=== PATIENT | male | born 1945 | race Caucasian/White ===

== ENCOUNTER 2017-02-21 14:02 | Emergency (ER) | payer OTHER ==
[~2017-02-21] VITALS: Ht 180.3 cm; Wt 86.6 kg
[~2017-02-21 14:02] MED LIST: ASPCH81X PO; ATOR-14 PO; LEVO125T4 PO; MULT-513 PO
[2017-02-21 14:18] VITALS: TEMP 36.6; Ht 180.3 cm; Wt 86.6 kg
[2017-02-21] MEDS ORDERED: KETOROLAC TROMETHAMINE 30 MG/ML VIAL IV STA (14:25)
[2017-02-21] MEDS ORDERED: SODIUM CHLORIDE 0.9% 1000ML 1,000 ML IV STA (14:25)
[2017-02-21] MEDS ORDERED: ONDANSETRON INJ 2 MG/ML 2 ML VIAL IV STA (14:25)
[2017-02-21] MEDS ORDERED: MoRPHine SULFATE 4 MG/ML 1 ML CARP\\VIAL IV PRN (14:30)
[2017-02-21] MEDS ORDERED: LPT10 PO (14:45)
[2017-02-21 14:56] LABS: HEMATOCRIT 45.2 % (42-52); MEAN CORPUSCULAR HEMOGLOBIN 32.3 pg (25-34); MEAN CORPUSCULAR HGB CONC 36.3 g/dl (32-36); MEAN PLATELET VOLUME 10.6 fL (7.4-10.4); PLATELET COUNT 205 K/uL (130-400); RED BLOOD COUNT 5.08 M/uL (4.7-6.1)
--- NOTE | 2017-02-21 15:08 | DIAGNOSTIC IMAGING REPORT ---
ABD/PELVIS WITHOUT FOR STONE CT DOSE: 966.87 mGycm HISTORY: Flank pain EVALUATE FLANK PAIN/HEMATURIA TECHNIQUE: Multiaxial CT images of the abdomen and pelvis were performed without the use of intravenous and oral contrast according to the standard department stone protocol. A dose lowering technique was utilized adhering to the principles of ALARA. COMPARISON STUDY: None. FINDINGS: Lung bases are clear. Liver spleen and pancreas are unremarkable in overall morphology. The adrenal glands are unremarkable. Left kidney is negative for calcification or hydronephrosis. There are findings of mild right renal hydronephrosis. There is a 6 x 4 mm obstructing calculus at the right ureteropelvic junction. Distal aspects of the ureters show no evidence for distention. Exophytic nodule from the mid right kidney measuring 2.6 x 2.0 cm. Hounsfield units are indeterminate with this potentially representing renal lesion versus hyperdense cyst. The bowel pattern is nonobstructive. The appendix is normal. There are several scattered colonic diverticuli with no evidence of diverticulitis. Prostate is enlarged. IMPRESSION: 1. 6 x 4 mm obstructing calculus right ureteropelvic junction. 2. Mild/moderate right renal hydronephrosis. 3. Exophytic nodule mid right kidney measuring 2.6 x 2.0 cm. Renal ultrasound on a routine basis is recommended to exclude the possibility of a renal mass versus hyperdense cyst. 4. Scattered colonic diverticulosis The above report was generated using voice recognition software. It may contain grammatical, syntax or spelling errors. Electronically signed by: Jerome Santana M.D. 02/21/2017 3:07 PM Dictated Date/Time: 02/21/2017 3:02 PM
--- NOTE | 2017-02-21 15:17 | EMERGENCY ROOM VISIT NOTE ---
History Report prepared by Francis: Zeynep Ellison Under the Supervision of: Dr. Jeison Rivera M.D. First contact with patient: 14:21 Chief Complaint: FLANK PAIN Stated Complaint: EXTREME PAIN IN RIGHT SIDE, KIDNEY AREA, NAUSEA History of Present Illness The patient is a 71 year old male who presents to the Emergency Room with complaints of worsening right flank pain starting four hours ago. The patient states that the pain came on gradually. He states he noticed it when he went to [employer]. He reports that it worsened when at home watching the football game. He states that he couldn't stand the pain anymore so he decided to come into the hospital. The patient currently rates his pain as a 9/10 in severity. He notes that the pain stays in his back and does not radiate anywhere. He notes that he felt fine yesterday. The patient complains of nausea and feeling tingly. The patient denies pain in his testicles, burning with urination, frequent urination , fever, and trauma. His notes that he is scheduled for a prostate MRI due to an increased PSA. Patient arrived with previous records. They show a previous finding of a 6 mm stone within the right kidney. Source of History: patient, spouse/significant other Onset: four hours ago Position: other (right flank) Symptom Intensity: 9/10 Quality: tingling Timing: worsening Associated Symptoms: + nausea, No fevers, No urinary symptoms Note: The patient denies pain in his testicles and trauma. Review of Systems See HPI for pertinent positives & negatives. A total of 10 systems reviewed and were otherwise negative. Family History FH: CHF (congestive heart failure) SISTER FH: HTN (hypertension) BROTHER SISTER No significant history FATHER MOTHER Social History Smoking Status: Never Smoker Marital Status: Housing Status: lives with family Occupation Status: retired Current/Historical Medications Scheduled Alfuzosin Hcl (Uroxatral), 10 MG PO DAILY Aspirin (Aspirin Chewable), 81 MG PO DAILY Atorvastatin (Atorvastatin Calcium), 10 MG PO DAILY Levothyroxine Sodium (Levothyroxine Sodium), 125 MCG PO QAM Multivitamins/Minerals (Mvi With Minerals), 1 TAB PO DAILY Ondasetron Odt (Zofran Odt), 4 MG SL Q6H Scheduled PRN Oxycodone Ir (Roxicodone Ir), 1-2 TAB PO Q4H PRN for Pain Allergies Coded Allergies: Tamsulosin (Unverified Allergy, Unknown, ., 02/21/17) Physical Exam Vital Signs Date Time Temp Pulse Resp B/P (MAP) Pulse Ox O2 Delivery O2 Flow Rate FiO2 02/21/17 16:14 65 18 134/87 97 Room Air 02/21/17 14:38 51 02/21/17 14:18 36.6 60 18 179/105 99 Room Air Physical Exam GENERAL: Patient is in moderate distress secondary to pain. HEENT: No acute trauma, normocephalic atraumatic, mucous membranes moist, no nasal congestion, no scleral icterus. NECK: No stridor, no adenopathy, no meningismus, trachea is midline. LUNGS: Clear to auscultation bilaterally, no wheeze, no rhonchi, breath sounds equal. HEART: Without murmurs gallops or rubs, regular rate and rhythm. ABDOMEN: Soft, nontender, bowel sounds positive, no hernias, no peritonitis. BACK: Right flank discomfort with percussion. EXTREMITIES: No cyanosis or edema, full range of motion of all the joints without pain or difficulty, no signs for acute trauma. NEUROLOGIC: Oriented x 3, no acute motor or sensory deficits, no focal weakness. SKIN: No rash, no jaundice, no diaphoresis. Medical Decision & Procedures ER Provider Diagnostic Interpretation: Radiology results as stated below per my review and radiologist interpretation: ABD/PELVIS WITHOUT FOR STONE CT DOSE: 966.87 mGycm HISTORY: Flank pain EVALUATE FLANK PAIN/HEMATURIA TECHNIQUE: Multiaxial CT images of the abdomen and pelvis were performed without the use of intravenous and oral contrast according to the standard department stone protocol. A dose lowering technique was utilized adhering to the principles of ALARA. COMPARISON STUDY: None. FINDINGS: Lung bases are clear. Liver spleen and pancreas are unremarkable in overall morphology. The adrenal glands are unremarkable. Left kidney is negative for calcification or hydronephrosis. There are findings of mild right renal hydronephrosis. There is a 6 x 4 mm obstructing calculus at the right ureteropelvic junction. Distal aspects of the ureters show no evidence for distention. Exophytic nodule from the mid right kidney measuring 2.6 x 2.0 cm. Hounsfield units are indeterminate with this potentially representing renal lesion versus hyperdense cyst. The bowel pattern is nonobstructive. The appendix is normal. There are several scattered colonic diverticuli with no evidence of diverticulitis. Prostate is enlarged. IMPRESSION: 1. 6 x 4 mm obstructing calculus right ureteropelvic junction. 2. Mild/moderate right renal hydronephrosis. 3. Exophytic nodule mid right kidney measuring 2.6 x 2.0 cm. Renal ultrasound on a routine basis is recommended to exclude the possibility of a renal mass versus hyperdense cyst. 4. Scattered colonic diverticulosis The above report was generated using voice recognition software. It may contain grammatical, syntax or spelling errors. Electronically signed by: Jerome Santana M.D. 02/21/2017 3:07 PM Dictated Date/Time: 02/21/2017 3:02 PM Laboratory Results 02/21/17 14:40 02/21/17 14:40 Test 02/21/17 14:40 02/21/17 15:34 Red Blood Count 5.08 M/uL (4.7-6.1) Mean Corpuscular Volume 89.0 fL (80-100) Mean Corpuscular Hemoglobin 32.3 pg (25-34) Mean Corpuscular Hemoglobin Concent 36.3 g/dl (32-36) RDW Standard Deviation 40.8 fL (36.4-46.3) RDW Coefficient of Variation 12.7 % (11.5-14.5) Mean Platelet Volume 10.6 fL (7.4-10.4) Anion Gap 11.0 mmol/L (3-11) Est Creatinine Clear Calc Drug Dose 67.5 ml/min Estimated GFR () 79.0 Estimated GFR (Non- 68.1 BUN/Creatinine Ratio 13.3 (10-20) Calcium Level 9.8 mg/dl (8.5-10.1) Total Bilirubin 0.8 mg/dl (0.2-1) Aspartate Amino Transf (AST/SGOT) 20 U/L (15-37) Alanine Aminotransferase (ALT/SGPT) 28 U/L (12-78) Alkaline Phosphatase 75 U/L (45-117) Total Protein 7.3 gm/dl (6.4-8.2) Albumin 4.2 gm/dl (3.4-5.0) Globulin 3.1 gm/dl (2.5-4.0) Albumin/Globulin Ratio 1.4 (0.9-2) Lipase 218 U/L (73-393) Urine Color YELLOW Urine Appearance CLEAR (CLEAR) Urine pH 7.5 (4.5-7.5) Urine Specific [place] 1.018 (1.000-1.030) Urine Protein NEG (NEG) Urine Glucose (UA) NEG (NEG) Urine Ketones 1+ (NEG) Urine Occult Blood 2+ (NEG) Urine Nitrite NEG (NEG) Urine Bilirubin NEG (NEG) Urine Urobilinogen NEG (NEG) Urine Leukocyte Esterase NEG (NEG) Urine WBC (Auto) 1-5 /hpf (0-5) Urine RBC (Auto) >30 /hpf (0-4) Urine Hyaline Casts (Auto) 0 /lpf (0-5) Urine Epithelial Cells (Auto) 20-30 /lpf (0-5) Urine Bacteria (Auto) NEG (NEG) Laboratory results reviewed by me. Medications Administered Medications (Trade) Dose Ordered Sig/Yasmine Route Start Time Stop Time Status Last Admin Dose Admin Ondansetron HCl (Zofran Inj) 4 mg NOW STAT IV 02/21/17 14:25 02/21/17 14:27 DC 02/21/17 14:41 4 MG Sodium Chloride 1,000 ml @ 999 mls/hr Q1H1M STAT IV 02/21/17 14:25 02/21/17 15:25 DC 02/21/17 14:41 999 MLS/HR Morphine Sulfate (MoRPHine SULFATE INJ) 4 mg Q15M PRN IV 02/21/17 14:30 03/07/17 14:29 02/21/17 14:42 4 MG Ketorolac Tromethamine (Toradol Inj) 30 mg NOW STAT IV 02/21/17 14:25 02/21/17 14:27 DC 02/21/17 14:41 30 MG Alfuzosin HCl (Uroxatral Tab) 10 mg NOW STAT PO 02/21/17 15:53 02/21/17 15:54 DC 02/21/17 16:12 10 MG Oxycodone HCl (Roxicodone Immediate Rel 5MG Home Pack) 1 homepack UD ONCE PO 02/21/17 16:45 02/21/17 16:46 DC 02/21/17 16:49 1 HOMEPACK Ondansetron HCl (ZOFRAN ODT 4MG Home Pack) 1 homepack UD ONCE PO 02/21/17 16:45 02/21/17 16:46 DC 02/21/17 16:49 1 HOMEPACK ED Course 1422: The patient was evaluated in room B11A. A complete history and physical exam was performed. 1425: Ordered Toradol Inj 30 mg IV, NSS 1000 ml @ 999 mls/hr IV, Zofran Inj 4 mg IV. 1430: Ordered Morphine Sulfate 4 mg PRN IV pain. 1553: Ordered Alfuzosin HCl 10 mg PO. 1554: I reevaluated the patient and he is doing okay. 1618: Reevaluated the patient. Discussed results and discharge instructions: he verbalized understanding and agreement. The patient is ready for discharge. 1645: Ordered Ondansetron HCl 1 homepack PO, Oxycodone HCl 1 homepack PO. Medical Decision Differential diagnoses include renal colic, UTI, renal hematoma, dehydration, electrolyte imbalance, renal failure. There is a mild leukocytosis, likely consistent with his pain. No anemia. No significant electrolyte abnormality, kidney failure or hepatitis. Abdominal and pelvis CT shows a 6 mm right ureteral stone with hydronephrosis. A nodule was seen on the right kidney for which follow-up was suggested. Urinalysis shows hematuria, no infection. The patient received IV saline, IV Toradol, IV morphine and IV Zofran, he is more comfortable. He received oral Uroxatral. The patient is stable, he is being discharged on Motrin, oxycodone, Uroxatral, Zofran. He will strain all his urine for the stone. He will return here for fever, vomiting or uncontrolled pain. He will talk with his urologist tomorrow about follow-up. [place] Drug Monitoring Program Search Results: no issues identified Medication Reconcilliation Current Medication List: was personally reviewed by me Blood Pressure Screening Patient's blood pressure: Elevated blood pressure Blood pressure disposition: Elevated BP felt to be situational Impression Primary Impression: Renal colic Additional Impression: Right flank pain Scribe Attestation The scribe's documentation has been prepared under my direction and personally reviewed by me in its entirety. I confirm that the note above accurately reflects all work, treatment, procedures, and medical decision making performed by me. Departure Information Dispostion Home / Self-Care Prescriptions Alfuzosin Hcl (Uroxatral) 10 Mg Tab 10 MG PO DAILY, #10 TAB Prov: Jeison Rivera M.D. 02/21/17 Ondasetron Odt (ZOFRAN ODT) 4 Mg Tab 4 MG SL Q6H for Nausea, #10 TAB Prov: Jeison Rivera M.D. 02/21/17 Oxycodone Ir (Roxicodone Ir) 5 Mg Tab 1-2 TAB PO Q4H Y for Pain, #10 TAB Prov: Jeison Rivera M.D. 02/21/17 Referrals No Doctor, Assigned (PCP) Forms HOME CARE DOCUMENTATION FORM, IMPORTANT VISIT INFORMATION Patient Instructions My [facility] Additional Instructions strain all the urine for the stone stay hydrated motrin for pain oxy ir for severe pain, 1-2 tab as needed every 4 hours stool softners to prevent constipation Uroxatral to try and help pass the stone zofran 1 tab every 6 hours for nausea call and set up appt with your urologist tomorrow return for worsening symptoms, fever, vomiting or uncontrolled pain Problem Qualifiers
[2017-02-21 15:23] LABS: BUN/CREATININE RATIO 13.3 (10-20); CALCIUM 9.8 mg/dl (8.5-10.1); CREATININE 1.1 mg/dl (0.60-1.40); POTASSIUM 3.9 mmol/L (3.5-5.1)
[2017-02-21 15:24] LABS: ALB/GLOB RATIO 1.4 (0.9-2)
[2017-02-21 15:48] LABS: URINE APPEARANCE CLEAR (CLEAR); URINE BILIRUBIN NEG (NEG); URINE COLOR YELLOW; URINE EPITHELIAL CELL AUTO 20-30 /lpf (0-5); URINE NITRITE NEG (NEG); URINE PH 7.5 (4.5-7.5); URINE SPECIFIC GRAVITY 1.018 (1.000-1.030); UROBILINOGEN NEG (NEG); ZZUR CULT IF INDIC CLEAN CATCH NO
[2017-02-21] MEDS ORDERED: ALFUZosin TAB 10 MG TAB PO STA (15:53)
[2017-02-21 15:58] LABS: MANUAL MICROSCOPIC REQUIRED? NO; REVIEW REQ? NO
[2017-02-21 16:14] VITALS: BP 134/87; PULSE 65; O2SAT 97
[2017-02-21] MEDS ORDERED: ALFU10TA30 PO (16:33)
[2017-02-21] MEDS ORDERED: OXYC1TAB3 PO (16:33)
[2017-02-21] MEDS ORDERED: ONDA4TAB10 SL (16:33)
[2017-02-21] MEDS ORDERED: ONDANSETRON HOME PACK 4MG OD TAB PO ONE (16:45)
[2017-02-21] MEDS ORDERED: OXYCODONE IR HOME PACK PO ONE (16:45)
[2017-02-24] MEDS ORDERED: TAMS0.4C38 PO (19:27)
[2017-02-24] MEDS ORDERED: PHEN-1043 PO (19:27)
[2017-03-01] MEDS ORDERED: FLM4 PO (14:07)
== END 2017-02-21 16:53 | disposition home or self-care (01) ==
LOC: C.EDB 14:04
DX: N23 Unspecified renal colic (principal); R10.9 Unspecified abdominal pain; Z82.49 Family history of ischemic heart disease and other diseases of the circulatory system; Z79.82 Long term (current) use of aspirin

== ENCOUNTER 2017-02-23 18:36 | Inpatient (IN) | payer OTHER ==
[~2017-02-23] VITALS: Ht 177.8 cm; Wt 87.7 kg
[~2017-02-23 18:36] MED LIST changes: +ALFU10TA30 PO; -ATOR-14 PO; +LPT10 PO; +ONDA4TAB10 SL; +OXYC1TAB3 PO
[2017-02-23] MEDS ORDERED: DOCU100C PO (19:38)
[2017-02-23] MEDS ORDERED: METOCLOPRAMIDE HCL INJ 5 MG/ML 2 ML VIAL IV STA (19:43)
[2017-02-23] MEDS ORDERED: HYDROmorphone INJ 1 MG/ML SYR IV STA (19:43)
[2017-02-23] MEDS ORDERED: KETOROLAC TROMETHAMINE 30 MG/ML VIAL IV STA (19:43)
[2017-02-23] MEDS ORDERED: SODIUM CHLORIDE 0.9% 1000ML 1,000 ML IV STA (19:43)
[2017-02-23 20:20] LABS: BASO % 0.1 %; BASO ABS # 0.01 K/uL (0-0.2); COMPLETE YES; EOS % 0.1 %; HEMATOCRIT 43.2 % (42-52); IG% 0.6 %; LYMPH % 8.2 %; LYMPH ABS # 1.01 K/uL (1.2-3.4); MEAN CELL VOLUME 91.9 fL (80-100); MEAN CORPUSCULAR HEMOGLOBIN 31.3 pg (25-34); MEAN PLATELET VOLUME 10.6 fL (7.4-10.4); MONO % 8.9 %; NEUT % 82.1 %; PLATELET COUNT 176 K/uL (130-400); WHITE BLOOD COUNT 12.31 K/uL (4.8-10.8)
[2017-02-23 20:24] LABS: URINE APPEARANCE CLOUDY (CLEAR); URINE BILIRUBIN NEG (NEG); URINE COLOR YELLOW; URINE EPITHELIAL CELL AUTO 0-5 /lpf (0-5); URINE NITRITE NEG (NEG); URINE SPECIFIC GRAVITY 1.019 (1.000-1.030); UROBILINOGEN NEG (NEG)
[2017-02-23 20:26] LABS: MANUAL MICROSCOPIC REQUIRED? NO; REVIEW REQ? NO
--- NOTE | 2017-02-23 20:26 | DIAGNOSTIC IMAGING REPORT ---
KUB CLINICAL HISTORY: Right flank pain. History of kidney stones. COMPARISON STUDY: CT of the abdomen and pelvis February 21, 2017. FINDINGS: Pelvic calcifications represent phleboliths, as shown on prior abdominal CT. A 6 mm right ureteropelvic junction calculus is unchanged in position since CT of February 21, 2017. No additional urinary calculi are identified. There is no evidence for a bowel obstruction. IMPRESSION: No change in position of the 6 mm right ureteropelvic junction calculus. Electronically signed by: Jeyson Goldstein M.D. 02/23/2017 8:25 PM Dictated Date/Time: 02/23/2017 8:22 PM
[2017-02-23 20:28] LABS: BUN/CREATININE RATIO 13.3 (10-20); CALCIUM 8.6 mg/dl (8.5-10.1); CREATININE 1.3 mg/dl (0.60-1.40); POTASSIUM 4.1 mmol/L (3.5-5.1)
[2017-02-23] MEDS ORDERED: CEFTRIAXONE SOD INJ 1 GM ADDVIAL IV STA (20:33)
[2017-02-23] MEDS ORDERED: VANCOMYCIN 1GM/270ML NSS IV STA (20:33)
--- NOTE | 2017-02-23 20:40 | EMERGENCY ROOM VISIT NOTE ---
History Report prepared by Francis: Zeynep Ellison Under the Supervision of: Dr. Osmany Deleon M.D. First contact with patient: 19:27 Chief Complaint: KIDNEY STONE Stated Complaint: PAIN FROM KIDNEY STONE History of Present Illness The patient is a 71 year old male who presents to the Emergency Room with complaints of a worsening right kidney stone starting a few days ago. The patient states that he was here two days ago and they found a 6 mm kidney stone. He states he has an appointment tomorrow with urology, but reports that he is struggling with pain control. The patient states that he cannot get comfortable and the Oxycodone hasn't been helping. He complains of being constipated from the Oxycodone. The patient currently rates his pain as a 7/10 in severity. The patient denies taking Ibuprofen. Source of History: patient Onset: a few days ago Position: other (right flank) Symptom Intensity: 7/10 Timing: worsening Note: The patient complains of constipation. The patient denies taking Ibuprofen. Review of Systems See HPI for pertinent positives & negatives. A total of 10 systems reviewed and were otherwise negative. Past Medical & Surgical Medical Problems: (1) HTN (hypertension) (2) Renal colic Surgical Problems: (1) History of total bilateral knee replacement Family History FH: CHF (congestive heart failure) SISTER FH: HTN (hypertension) BROTHER SISTER No significant history FATHER MOTHER Social History Smoking Status: Never Smoker Marital Status: Housing Status: lives with family Occupation Status: retired Current/Historical Medications Scheduled Alfuzosin Hcl (Uroxatral), 10 MG PO DAILY Aspirin (Aspirin Chewable), 81 MG PO DAILY Atorvastatin (Atorvastatin Calcium), 10 MG PO DAILY Docusate Sodium (Stool Softener), 100 MG PO DIRECTED Levothyroxine Sodium (Levothyroxine Sodium), 125 MCG PO QAM Multivitamins/Minerals (Mvi With Minerals), 1 TAB PO DAILY Ondasetron Odt (Zofran Odt), 4 MG SL Q6H Scheduled PRN Oxycodone Ir (Roxicodone Ir), 1-2 TAB PO Q4H PRN for Pain Allergies Coded Allergies: Tamsulosin (Unverified Allergy, Unknown, ., 02/23/17) Physical Exam Vital Signs Date Time Temp Pulse Resp B/P (MAP) Pulse Ox O2 Delivery O2 Flow Rate FiO2 02/23/17 21:21 89 02/23/17 20:17 92 16 151/94 96 Room Air 02/23/17 18:51 37.5 92 20 159/91 96 Room Air Physical Exam GENERAL: Patient is a healthy-appearing well-nourished HEAD: Normocephalic atraumatic EYES: Ocular movements intact pupils equal and react to light OROPHARYNX mucous membranes are moist no exudates present no erythema or edema present NECK: Supple no nuchal rigidity CHEST: Good equal expansion LUNGS: Clear and equal to auscultation CARDIAC: Normal S1 and S2 ABDOMEN: Soft nontender no guarding BACK: No CVA tenderness EXTREMITIES: No pain upon palpation normal muscle strength in all groups no clubbing cyanosis or edema NEURO: Patient is following commands and answering questions appropriately. Alert and oriented x3 Cranial Nerves 2-12 grossly intact Medical Decision & Procedures ER Provider Diagnostic Interpretation: Radiology results as stated below per my review and radiologist interpretation: KUB CLINICAL HISTORY: Right flank pain. History of kidney stones. COMPARISON STUDY: CT of the abdomen and pelvis February 21, 2017. FINDINGS: Pelvic calcifications represent phleboliths, as shown on prior abdominal CT. A 6 mm right ureteropelvic junction calculus is unchanged in position since CT of February 21, 2017. No additional urinary calculi are identified. There is no evidence for a bowel obstruction. IMPRESSION: No change in position of the 6 mm right ureteropelvic junction calculus. Electronically signed by: Jeyson Goldstein M.D. 02/23/2017 8:25 PM Dictated Date/Time: 02/23/2017 8:22 PM RENAL ULTRASOUND CLINICAL HISTORY: Right flank pain. COMPARISON STUDY: CT of the abdomen and pelvis February 21, 2017 and KUB performed earlier today. TECHNIQUE: Sonography of the kidneys and the urinary bladder was performed. FINDINGS: The right kidney measures 12.9 x 5.9 x 6.3 cm and the left measures 10.7 x 6.2 x 4.7 cm. There is a 2.8 cm right renal cyst. Mild right hydronephrosis is similar to CT of February 21, 2017. The right ureteropelvic junction calculus shown on CT and KUB is not visualized on this exam but may be occult by sonography. There is no left hydronephrosis. The right ureteral jet was not identified. The prostate is moderately enlarged. IMPRESSION: 1. Mild right hydronephrosis which is similar to CT of February 21, 2017. Right ureteropelvic junction calculus shown on CT and KUB is not visualized on this exam but is likely occult by sonography. 2. No left hydronephrosis. 3. Nonvisualization of the right ureteral jet. Electronically signed by: Jeyson Goldstein M.D. 02/23/2017 9:19 PM Dictated Date/Time: 02/23/2017 9:15 PM Laboratory Results 02/23/17 19:45 Red Blood Count 4.70, Mean Corpuscular Volume 91.9, Mean Corpuscular Hemoglobin 31.3, Mean Corpuscular Hemoglobin Concent 34.0, Mean Platelet Volume 10.6, Neutrophils (%) (Auto) 82.1, Lymphocytes (%) (Auto) 8.2, Monocytes (%) (Auto) 8.9, Eosinophils (%) (Auto) 0.1, Basophils (%) (Auto) 0.1, Neutrophils # (Auto) 10.10, Lymphocytes # (Auto) 1.01, Monocytes # (Auto) 1.10, Eosinophils # (Auto) 0.01, Basophils # (Auto) 0.01 02/23/17 19:45 Test 02/23/17 19:45 White Blood Count 12.31 K/uL (4.8-10.8) Red Blood Count 4.70 M/uL (4.7-6.1) Hemoglobin 14.7 g/dL (14.0-18.0) Hematocrit 43.2 % (42-52) Mean Corpuscular Volume 91.9 fL (80-100) Mean Corpuscular Hemoglobin 31.3 pg (25-34) Mean Corpuscular Hemoglobin Concent 34.0 g/dl (32-36) Platelet Count 176 K/uL (130-400) Mean Platelet Volume 10.6 fL (7.4-10.4) Neutrophils (%) (Auto) 82.1 % Lymphocytes (%) (Auto) 8.2 % Monocytes (%) (Auto) 8.9 % Eosinophils (%) (Auto) 0.1 % Basophils (%) (Auto) 0.1 % Neutrophils # (Auto) 10.10 K/uL (1.4-6.5) Lymphocytes # (Auto) 1.01 K/uL (1.2-3.4) Monocytes # (Auto) 1.10 K/uL (0.11-0.59) Eosinophils # (Auto) 0.01 K/uL (0-0.5) Basophils # (Auto) 0.01 K/uL (0-0.2) RDW Standard Deviation 43.1 fL (36.4-46.3) RDW Coefficient of Variation 12.8 % (11.5-14.5) Immature Granulocyte % (Auto) 0.6 % Immature Granulocyte # (Auto) 0.08 K/uL (0.00-0.02) Urine Color YELLOW Urine Appearance CLOUDY (CLEAR) Urine pH 5.0 (4.5-7.5) Urine Specific [place] 1.019 (1.000-1.030) Urine Protein 1+ (NEG) Urine Glucose (UA) NEG (NEG) Urine Ketones TRACE (NEG) Urine Occult Blood 3+ (NEG) Urine Nitrite NEG (NEG) Urine Bilirubin NEG (NEG) Urine Urobilinogen NEG (NEG) Urine Leukocyte Esterase NEG (NEG) Urine WBC (Auto) 1-5 /hpf (0-5) Urine RBC (Auto) 10-30 /hpf (0-4) Urine Hyaline Casts (Auto) 1-5 /lpf (0-5) Urine Epithelial Cells (Auto) 0-5 /lpf (0-5) Urine Bacteria (Auto) NEG (NEG) Anion Gap 7.0 mmol/L (3-11) Est Creatinine Clear Calc Drug Dose 59.8 ml/min Estimated GFR () 64.5 Estimated GFR (Non- 55.7 BUN/Creatinine Ratio 13.3 (10-20) Calcium Level 8.6 mg/dl (8.5-10.1) Total Bilirubin 1.1 mg/dl (0.2-1) Direct Bilirubin 0.2 mg/dl (0-0.2) Aspartate Amino Transf (AST/SGOT) 15 U/L (15-37) Alanine Aminotransferase (ALT/SGPT) 20 U/L (12-78) Alkaline Phosphatase 67 U/L (45-117) Total Protein 6.9 gm/dl (6.4-8.2) Albumin 3.6 gm/dl (3.4-5.0) Lipase 151 U/L (73-393) Labs reviewed by ED physician. Medications Administered Medications (Trade) Dose Ordered Sig/Yasmine Route Start Time Stop Time Status Last Admin Dose Admin Ketorolac Tromethamine (Toradol Inj) 30 mg NOW STAT IV 02/23/17 19:43 02/23/17 19:47 DC 02/23/17 20:24 30 MG Hydromorphone HCl (Dilaudid Inj) 1 mg NOW STAT IV 02/23/17 19:43 02/23/17 19:47 DC 02/23/17 20:24 1 MG Metoclopramide HCl (Reglan Inj) 10 mg NOW STAT IV 02/23/17 19:43 02/23/17 19:47 DC 02/23/17 20:24 10 MG Sodium Chloride 1,000 ml @ 999 mls/hr Q1H1M STAT IV 02/23/17 19:43 02/23/17 20:43 DC 02/23/17 20:18 999 MLS/HR Ceftriaxone Sodium (Rocephin Inj) 1 gm NOW STAT IV 02/23/17 20:33 02/23/17 20:34 DC 02/23/17 21:09 1 GM Sodium Chloride 1,000 ml @ 80 mls/hr [id number] IV 02/23/17 21:30 03/25/17 21:29 02/24/17 00:18 80 MLS/HR ECG Indication: abdominal pain Rate (beats per minute): 90 Rhythm: normal sinus Findings: no acute ischemic change, no ectopy ED Course 1937: Past medical records reviewed. The patient was evaluated in room B4B. A complete history and physical examination was performed. 1942: Ordered NSS 1000 ml @ 999 mls/hr IV, Reglan Inj 10 mg IV, Dilaudid Inj 1 mg IV, Toradol Inj 30 mg IV. 2032: Ordered Vancomycin HCl 1 gm IV, Rocephin Inj 1 gm IV. 2102: I discussed the patient's case with Dr. Cueto, he has agreed to evaluate the patient for further management and care. Medical Decision Etiologies such as appendicitis, diverticulitis, PUD, biliary pathology, UTI, pancreatitis, obstruction, mesenteric ischemia, aortic pathology, infections, inflammatory bowel disease, renal colic, as well as others were entertained. This is a 71-year-old male who presents emergency department complaining of flank pain. The patient was just diagnosed with a CAT scan as a kidney stone. It is an exceptionally large kidney stone at 6 mm x 4 mm. Based on this finding I sent the patient for KUB as well as an ultrasound. The kidney stone does not appear to have moved and that time. The patient cannot get his pain under control at home therefore an IV was established here, the patient is given Toradol as well as Compazine. He is running a slight fever and has an elevation in his white blood count cell count. For this reason the patient was started on Rocephin as well as vancomycin. I did discuss the case with the hospitalist service who agreed to admit the patient. Patient was in agreement with treatment plan. Medication Reconcilliation Current Medication List: was personally reviewed by me Blood Pressure Screening Patient's blood pressure: Elevated blood pressure Will be further monitored by hospitalist. Consults Time Called: 2100 Consulting Physician: Dr. Vipin Weiss Returned Call: 2102 I discussed the patient's case with Dr. Cueto, he has agreed to evaluate the patient for further management and care. Impression Primary Impression: Kidney stone Scribe Attestation The scribe's documentation has been prepared under my direction and personally reviewed by me in its entirety. I confirm that the note above accurately reflects all work, treatment, procedures, and medical decision making performed by me. Departure Information Dispostion Being Evaluated By Hospitalist Referrals Arnulfo Valdez M.D. (PCP) Patient Instructions My [facility]
--- NOTE | 2017-02-23 21:20 | DIAGNOSTIC IMAGING REPORT ---
RENAL ULTRASOUND CLINICAL HISTORY: Right flank pain. COMPARISON STUDY: CT of the abdomen and pelvis February 21, 2017 and KUB performed earlier today. TECHNIQUE: Sonography of the kidneys and the urinary bladder was performed. FINDINGS: The right kidney measures 12.9 x 5.9 x 6.3 cm and the left measures 10.7 x 6.2 x 4.7 cm. There is a 2.8 cm right renal cyst. Mild right hydronephrosis is similar to CT of February 21, 2017. The right ureteropelvic junction calculus shown on CT and KUB is not visualized on this exam but may be occult by sonography. There is no left hydronephrosis. The right ureteral jet was not identified. The prostate is moderately enlarged. IMPRESSION: 1. Mild right hydronephrosis which is similar to CT of February 21, 2017. Right ureteropelvic junction calculus shown on CT and KUB is not visualized on this exam but is likely occult by sonography. 2. No left hydronephrosis. 3. Nonvisualization of the right ureteral jet. Electronically signed by: Jeyson Goldstein M.D. 02/23/2017 9:19 PM Dictated Date/Time: 02/23/2017 9:15 PM
[2017-02-23] MEDS ORDERED: LORAZEPAM 2 MG/ML 1 ML VIAL IV PRN (21:30)
[2017-02-23] MEDS ORDERED: ACETAMINOPHEN 325 MG TAB PO PRN (21:30)
[2017-02-23] MEDS ORDERED: ONDANSETRON INJ 2 MG/ML 2 ML VIAL IV PRN (21:30)
[2017-02-23] MEDS ORDERED: KETOROLAC TROMETHAMINE 15 MG/ML VIAL IV. PRN (21:30)
[2017-02-23] MEDS ORDERED: POLYETHYLENE (MIRALAX) 17 GM PACK PO PRN (21:30)
[2017-02-23] MEDS ORDERED: OXYCODONE/ACETAMINOPHEN 5-325 TAB PO PRN (21:30)
[2017-02-23] MEDS ORDERED: HYDROmorphone INJ 0.5 MG/0.5 ML SYR IV PRN (21:30)
[2017-02-23] MEDS ORDERED: IV FLUIDS COMPLETED PRN ×2 (21:30→23:15)
[2017-02-23] MEDS ORDERED: DOCUSATE SODIUM/SENNA 50/8.6MG TAB PO STA (21:56)
[2017-02-23] MEDS ORDERED: LACTULOSE SYRUP 20 GM/30 ML UDC PO STA (21:56)
[2017-02-23] MEDS ORDERED: POLYETHYLENE (MIRALAX) 17 GM PACK PO STA (22:03)
--- NOTE | 2017-02-23 23:02 | HISTORY & PHYSICAL EXAMINATION ---
DATE OF ADMISSION: 02/23/2017 PRIMARY CARE DOCTOR: Dr. Valdez. CHIEF COMPLAINT: Right flank/kidney stone pain. HISTORY OF PRESENT ILLNESS: History obtained from patient and records. Medical history significant for BPH, urolithiasis, hypertension, PVD, arthritis, hypothyroidism. Recent confinement under orthopedic service 2012 for right knee surgery. As per the patient, in 10/2016, the patient was found to have a nonobstructing right kidney stone on CT scan done at [facility] in preparation for kidney donor candidacy, no symptoms. 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 Last few days, the patient noted right flank pain, achy, some nausea, no vomiting. Seen at the Emergency Room a few days ago. CAT scan of the abdomen and pelvis showed 6 x 4 mm obstructing calculus right UPJ with mild to moderate right hydronephrosis, exophytic nodule mid right kidney. Patient discharged on pain medication. Told to follow up w/ outpatient urology. No improvement of symptoms. Patient constipated last few days, some chills, no hematuria. Patient returned to the Emergency Room with intractable pain. MEDICAL HISTORY: As above. SURGERIES: He has had orthopedic procedures, prostate procedures. HOME MEDICATIONS: Include aspirin, atorvastatin, stool softener, levothyroxine, multivitamins, Uroxatral. ALLERGIES: TAMSULOSIN. FAMILY HISTORY: Kidney disease, heart disease. PERSONAL AND SOCIAL HISTORY: Nonsmoker, no chronic intake of alcoholic beverages. 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 REVIEW OF SYSTEMS: As per HPI, all other ROS negative. PHYSICAL EXAMINATION: VITAL SIGNS: Blood pressure was noted to be 150/93, pulse 72, RR 16, temperature 36.5, sats 96 on room air. GENERAL: Noted to be slightly uncomfortable. No respiratory distress. Looks younger for stated age. SKIN: Normal color. HEENT: [place] palpebral conjunctivae. Dry mucosa. NECK: No JVD. Supple. CHEST: Clear to auscultation. HEART: Regular rate and rhythm. ABDOMEN: Soft. BACK: No flank tenderness. EXTREMITIES: No edema, no tenderness. NEUROLOGIC: No gross focality. LABORATORY DATA: Hemoglobin 14.7, hematocrit 42.2, white cells 12.31, platelets 176. Sodium 137, potassium 4.1, chloride 103, CO2 of 27, BUN 17, creatinine 0.3, glucose 106. KUB x-ray showed no change in position of 6 mm right UPJ calculus. Renal ultrasound, mild right hydronephrosis, 2.8 mm right renal cyst. ASSESSMENT: 1. Right renal colic. No sepsis. Failed outpatient treatment. Intractable symptoms. 2. Narcotic-induced constipation. 3. Hypertension, slightly elevated. 4. History of BPH as per records PLAN: GMF Analgesia. IV fluids. Hold off on antibiotics for now as patient not septic. Urology consult. RE renal colic (Patient known to Dr. Mitchell.) Bowel regimen. DVT prophylaxis, SCDs. Full code. MTDD
[2017-02-24] VITALS (9 sets, daily range): BP systolic 115–160; BP diastolic 70–101; PULSE 66–73; TEMP 36.8–37.4; O2SAT 93–98; Ht 177.8 cm; Wt 87.7 kg
[2017-02-24] MEDS: SODIUM CHLORIDE 0.9% 1000ML 1,000 ML IV SCH ×2 (00:18→13:07)
[2017-02-24] MEDS ORDERED: LEVOTHYROXINE 125 MCG TAB PO SCH (06:30)
[2017-02-24] MEDS ORDERED: ALFUZosin TAB 10 MG TAB PO SCH (09:00)
[2017-02-24] MEDS ORDERED: CEROVITE ADV FORMULA TAB PO SCH (09:00)
[2017-02-24] MEDS ORDERED: ATORVASTATIN 10 MG TAB PO SCH (09:00)
[2017-02-24] MEDS ORDERED: DOCUSATE SODIUM/SENNA 50/8.6MG TAB PO SCH (09:00)
[2017-02-24] MEDS ORDERED: ASPIRIN 81 MG CHEW PO SCH (09:00)
--- NOTE | 2017-02-24 14:53 | Progress Note ---
Subjective Date of Service: Feb 24, 2017. Subjective Pt evaluation today including: conversation w/ patient, physical exam, lab review, review of studies, review of inpatient medication list Saw/examined the patient in room 257 No problems/issues to note; flank pain subsided almost completely Denies fevers/chills Problem List Medical Problems: (1) Kidney stone Status: Acute (2) Renal colic Status: Acute (3) Right flank pain Status: Acute Review of Systems Constitutional: No fever, No chills Abdomen: No pain (resolved), No nausea, No vomiting, No diarrhea Male : No dysuria, No urinary frequency, No hematuria Medications Current Inpatient Medications Medications (Trade) Dose Ordered Sig/Yasmine Route Start Time Stop Time Status Last Admin Dose Admin Miscellaneous (Iv Fluids Completed) 1 ea PRN PRN N/A 02/23/17 21:30 02/23/18 21:29 Acetaminophen (Tylenol Tab) 650 mg Q4H PRN PO 02/23/17 21:30 03/25/17 21:29 Sodium Chloride 1,000 ml @ 80 mls/hr [id number] IV 02/23/17 21:30 03/25/17 21:29 02/24/17 13:07 80 MLS/HR Ondansetron HCl (Zofran Inj) 4 mg Q6H PRN IV 02/23/17 21:30 03/25/17 21:29 Ketorolac Tromethamine (Toradol Inj) 15 mg Q6H PRN IV. 02/23/17 21:30 02/28/17 21:29 Hydromorphone HCl (Dilaudid Inj) 0.5 mg Q3H PRN IV 02/23/17 21:30 03/09/17 21:29 Lorazepam (Ativan Inj) 0.5 mg Q4H PRN IV 02/23/17 21:30 03/25/17 21:29 Senna/Docusate Sodium (Senokot S Tab) 1 tab BID PO 02/24/17 09:00 03/26/17 08:59 02/24/17 08:45 1 TAB Polyethylene (Miralax Powder Packet) 17 gm DAILY PRN PO 02/23/17 21:30 03/25/17 21:29 Alfuzosin HCl (Uroxatral Tab) 10 mg DAILY PO 02/24/17 09:00 03/26/17 08:59 02/24/17 08:45 10 MG Aspirin (Aspirin Chew) 81 mg DAILY PO 02/24/17 09:00 03/26/17 08:59 02/24/17 08:45 81 MG Atorvastatin Calcium (Lipitor Tab) 10 mg DAILY PO 02/24/17 09:00 03/26/17 08:59 02/24/17 08:45 10 MG Levothyroxine Sodium (Synthroid Tab) 125 mcg DAILYBB PO 02/24/17 06:30 03/26/17 06:59 02/24/17 05:42 125 MCG Multivitamins/ Minerals (Multivitamin W/ Minerals Tab) 1 tab DAILY PO 02/24/17 09:00 03/26/17 08:59 02/24/17 08:45 1 TAB Oxycodone/ Acetaminophen (Percocet 5-325mg Tab) pain not relieved by tylenol Q4H PRN PO 02/23/17 21:30 03/09/17 21:29 Objective Vital Signs Date Time Temp Pulse Resp B/P (MAP) Pulse Ox O2 Delivery O2 Flow Rate FiO2 02/24/17 08:36 95 Room Air 02/24/17 08:00 95 Room Air 02/24/17 07:59 37.4 66 16 130/80 (97) 95 Room Air 02/24/17 07:32 36.9 68 18 134/82 (99) 95 Room Air 02/24/17 00:37 36.8 66 20 124/81 (95) 93 Room Air 02/24/17 00:02 37.0 68 18 115/73 Room Air 02/23/17 22:49 72 16 119/73 96 02/23/17 22:42 72 16 119/73 95 Room Air 02/23/17 21:48 37.1 78 16 124/79 94 Room Air 02/23/17 21:21 89 02/23/17 20:17 92 16 151/94 96 Room Air 02/23/17 18:51 37.5 92 20 159/91 96 Room Air Physical Exam General Appearance: no apparent distress Respiratory/Chest: no respiratory distress, no accessory muscle use Cardiovascular: regular rate, rhythm Abdomen: normal bowel sounds, non tender, soft Extremities: normal inspection, no pedal edema Laboratory Results Last 24 Hours Test 02/23/17 19:45 White Blood Count 12.31 K/uL Red Blood Count 4.70 M/uL Hemoglobin 14.7 g/dL Hematocrit 43.2 % Mean Corpuscular Volume 91.9 fL Mean Corpuscular Hemoglobin 31.3 pg Mean Corpuscular Hemoglobin Concent 34.0 g/dl Platelet Count 176 K/uL Mean Platelet Volume 10.6 fL Neutrophils (%) (Auto) 82.1 % Lymphocytes (%) (Auto) 8.2 % Monocytes (%) (Auto) 8.9 % Eosinophils (%) (Auto) 0.1 % Basophils (%) (Auto) 0.1 % Neutrophils # (Auto) 10.10 K/uL Lymphocytes # (Auto) 1.01 K/uL Monocytes # (Auto) 1.10 K/uL Eosinophils # (Auto) 0.01 K/uL Basophils # (Auto) 0.01 K/uL RDW Standard Deviation 43.1 fL RDW Coefficient of Variation 12.8 % Immature Granulocyte % (Auto) 0.6 % Immature Granulocyte # (Auto) 0.08 K/uL Urine Color YELLOW Urine Appearance CLOUDY Urine pH 5.0 Urine Specific [place] 1.019 Urine Protein 1+ Urine Glucose (UA) NEG Urine Ketones TRACE Urine Occult Blood 3+ Urine Nitrite NEG Urine Bilirubin NEG Urine Urobilinogen NEG Urine Leukocyte Esterase NEG Urine WBC (Auto) 1-5 /hpf Urine RBC (Auto) 10-30 /hpf Urine Hyaline Casts (Auto) 1-5 /lpf Urine Epithelial Cells (Auto) 0-5 /lpf Urine Bacteria (Auto) NEG Sodium Level 137 mmol/L Potassium Level 4.1 mmol/L Chloride Level 103 mmol/L Carbon Dioxide Level 27 mmol/L Anion Gap 7.0 mmol/L Blood Urea Nitrogen 17 mg/dl Creatinine 1.30 mg/dl Est Creatinine Clear Calc Drug Dose 59.8 ml/min Estimated GFR () 64.5 Estimated GFR (Non- 55.7 BUN/Creatinine Ratio 13.3 Random Glucose 106 mg/dl Calcium Level 8.6 mg/dl Total Bilirubin 1.1 mg/dl Direct Bilirubin 0.2 mg/dl Aspartate Amino Transf (AST/SGOT) 15 U/L Alanine Aminotransferase (ALT/SGPT) 20 U/L Alkaline Phosphatase 67 U/L Total Protein 6.9 gm/dl Albumin 3.6 gm/dl Lipase 151 U/L Assessment and Plan This is a 71 year old male with a PMH of hypothyroidism, HLD presents with right renal colic Right UVJ Nephrolithiasis CT shows a 6mm UVJ stone presented with extreme pain started on Percocet PRN noted Flomax allergy; started on an alpha fran IVFs urology consulted for further input Hypothyroid continue current medications/dose (125mcg) HLD continue statin DVT ppx SCDs FULL CODE
[2017-02-24] MEDS ORDERED: CONRAY 30% 150ML BOTTLE ONE (16:26)
[2017-02-24] MEDS ORDERED: FENTANYL CITRATE INJ 50 MCG/1 ML 2 ML VIAL ONE ×2 (16:27→17:13)
[2017-02-24] MEDS ORDERED: MIDAZOLAM HCL 1 MG/ML 2ML VIAL ONE (16:27)
[2017-02-24] MEDS ORDERED: CEFAZOLIN IV 2,000 MG/60 ML D5W IV ONE (16:45)
--- NOTE | 2017-02-24 16:49 | Urology Consultation ---
History General Date of Service: Feb 24, 2017. Primary Care Physician: Arnulfo Valdez M.D. Pt seen a urologist before?: Yes History of Present Illness I am asked by Dr Beverly to evaluate and treat patient for right ureteral stone. he has failed outpatient med therapy. he is also constipated. The 6mm right UPJ stone has not moved at all since ct scan. Pain is severe. No fevers. Imaging Imaging: CT, KUB, Ultrasound Laboratory Results Past 24 Hours Test 02/23/17 19:45 Range/Units White Blood Count 12.31 4.8-10.8 K/uL Red Blood Count 4.70 4.7-6.1 M/uL Hemoglobin 14.7 14.0-18.0 g/dL Hematocrit 43.2 42-52 % Mean Corpuscular Volume 91.9 80-100 fL Mean Corpuscular Hemoglobin 31.3 25-34 pg Mean Corpuscular Hemoglobin Concent 34.0 32-36 g/dl Platelet Count 176 130-400 K/uL Mean Platelet Volume 10.6 7.4-10.4 fL Neutrophils (%) (Auto) 82.1 % Lymphocytes (%) (Auto) 8.2 % Monocytes (%) (Auto) 8.9 % Eosinophils (%) (Auto) 0.1 % Basophils (%) (Auto) 0.1 % Neutrophils # (Auto) 10.10 1.4-6.5 K/uL Lymphocytes # (Auto) 1.01 1.2-3.4 K/uL Monocytes # (Auto) 1.10 0.11-0.59 K/uL Eosinophils # (Auto) 0.01 0-0.5 K/uL Basophils # (Auto) 0.01 0-0.2 K/uL RDW Standard Deviation 43.1 36.4-46.3 fL RDW Coefficient of Variation 12.8 11.5-14.5 % Immature Granulocyte % (Auto) 0.6 % Immature Granulocyte # (Auto) 0.08 0.00-0.02 K/uL Urine Color YELLOW Urine Appearance CLOUDY CLEAR Urine pH 5.0 4.5-7.5 Urine Specific [place] 1.019 1.000-1.030 Urine Protein 1+ NEG Urine Glucose (UA) NEG NEG Urine Ketones TRACE NEG Urine Occult Blood 3+ NEG Urine Nitrite NEG NEG Urine Bilirubin NEG NEG Urine Urobilinogen NEG NEG Urine Leukocyte Esterase NEG NEG Urine WBC (Auto) 1-5 0-5 /hpf Urine RBC (Auto) 10-30 0-4 /hpf Urine Hyaline Casts (Auto) 1-5 0-5 /lpf Urine Epithelial Cells (Auto) 0-5 0-5 /lpf Urine Bacteria (Auto) NEG NEG Sodium Level 137 136-145 mmol/L Potassium Level 4.1 3.5-5.1 mmol/L Chloride Level 103 98-107 mmol/L Carbon Dioxide Level 27 21-32 mmol/L Anion Gap 7.0 3-11 mmol/L Blood Urea Nitrogen 17 7-18 mg/dl Creatinine 1.30 0.60-1.40 mg/dl Est Creatinine Clear Calc Drug Dose 59.8 ml/min Estimated GFR () 64.5 Estimated GFR (Non- 55.7 BUN/Creatinine Ratio 13.3 10-20 Random Glucose 106 70-99 mg/dl Calcium Level 8.6 8.5-10.1 mg/dl Total Bilirubin 1.1 0.2-1 mg/dl Direct Bilirubin 0.2 0-0.2 mg/dl Aspartate Amino Transf (AST/SGOT) 15 15-37 U/L Alanine Aminotransferase (ALT/SGPT) 20 12-78 U/L Alkaline Phosphatase 67 45-117 U/L Total Protein 6.9 6.4-8.2 gm/dl Albumin 3.6 3.4-5.0 gm/dl Lipase 151 73-393 U/L Labs were reviewed and are within normal limits unless listed below. Labs are available in the chart and at [facility] Problem List Medical Problems: (1) Kidney stone Status: Acute (2) Renal colic Status: Acute (3) Right flank pain Status: Acute Past History hypertension Past Surgical History: orthopedic surgery (bilateral knee replace) Family History FH: CHF (congestive heart failure) SISTER FH: HTN (hypertension) BROTHER SISTER No significant history FATHER MOTHER Social History Hx Tobacco Use In Past Year?: No Smoking: non-smoker Alcohol: socially Marital status: single, Housing status: lives with family Occupation status: retired Immunizations History of Influenza Vaccine: No History of Tetanus Vaccine?: No History of Pneumococcal: No History of Hepatitis B Vaccine: No Allergies Coded Allergies: Tamsulosin (Unverified Allergy, Unknown, ., 02/23/17) Medications Home Medications: Home Meds and Scripts Medications Dose Route/Sig Max Daily Dose Days Date Category Stool Softener (Docusate Sodium) 100 Mg Cap 100 Mg PO DIRECTED 02/23/17 Reported Uroxatral (Alfuzosin HCl) 10 Mg Tab 10 Mg PO DAILY 02/21/17 Rx Zofran Odt (Ondansetron HCl) 4 Mg Tab 4 Mg SL Q6H 02/21/17 Rx Roxicodone Ir (Oxycodone HCl) 5 Mg Tab 1-2 Tab PO Q4H PRN 02/21/17 Rx Atorvastatin Calcium (Atorvastatin) 10 Mg Tab 10 Mg PO DAILY 02/21/17 Reported Aspirin Chewable (Aspirin) 81 Mg Chew 81 Mg PO DAILY 07/26/15 Reported Levothyroxine Sodium 125 Mcg Tab 125 Mcg PO QAM 03/31/13 Reported Mvi With Minerals (Multivitamins/Minerals) Tab 1 Tab PO DAILY 02/15/09 Reported Inpatient Medications: Current Inpatient Medications Medications (Trade) Dose Ordered Sig/Yasmine Route Start Time Stop Time Status Last Admin Dose Admin Miscellaneous (Iv Fluids Completed) 1 ea PRN PRN N/A 02/23/17 21:30 02/23/18 21:29 Acetaminophen (Tylenol Tab) 650 mg Q4H PRN PO 02/23/17 21:30 03/25/17 21:29 Sodium Chloride 1,000 ml @ 80 mls/hr [id number] IV 02/23/17 21:30 03/25/17 21:29 02/24/17 13:07 80 MLS/HR Ondansetron HCl (Zofran Inj) 4 mg Q6H PRN IV 02/23/17 21:30 03/25/17 21:29 Ketorolac Tromethamine (Toradol Inj) 15 mg Q6H PRN IV. 02/23/17 21:30 02/28/17 21:29 Hydromorphone HCl (Dilaudid Inj) 0.5 mg Q3H PRN IV 02/23/17 21:30 03/09/17 21:29 Lorazepam (Ativan Inj) 0.5 mg Q4H PRN IV 02/23/17 21:30 03/25/17 21:29 Senna/Docusate Sodium (Senokot S Tab) 1 tab BID PO 02/24/17 09:00 03/26/17 08:59 02/24/17 08:45 1 TAB Polyethylene (Miralax Powder Packet) 17 gm DAILY PRN PO 02/23/17 21:30 03/25/17 21:29 Alfuzosin HCl (Uroxatral Tab) 10 mg DAILY PO 02/24/17 09:00 03/26/17 08:59 02/24/17 08:45 10 MG Aspirin (Aspirin Chew) 81 mg DAILY PO 02/24/17 09:00 03/26/17 08:59 02/24/17 08:45 81 MG Atorvastatin Calcium (Lipitor Tab) 10 mg DAILY PO 02/24/17 09:00 03/26/17 08:59 02/24/17 08:45 10 MG Levothyroxine Sodium (Synthroid Tab) 125 mcg DAILYBB PO 02/24/17 06:30 03/26/17 06:59 02/24/17 05:42 125 MCG Multivitamins/ Minerals (Multivitamin W/ Minerals Tab) 1 tab DAILY PO 02/24/17 09:00 03/26/17 08:59 02/24/17 08:45 1 TAB Oxycodone/ Acetaminophen (Percocet 5-325mg Tab) pain not relieved by tylenol Q4H PRN PO 02/23/17 21:30 03/09/17 21:29 Review of Systems Review of Systems Constitutional: No fever, No chills, No weight loss Neurological: No dizzy Endocrine: No excessive thirst, No too hot, No too cold, No tired/sluggish Cardiovascular: No palpitations, No swelling ankles/feet Respiratory: No shortness of breath, No chronic cough Male : + weak stream, + kidney stones, + nocturia more than once/night Physical Exam Vital Signs: Vital Signs Past 12 Hours Date Time Temp Pulse Resp B/P (MAP) Pulse Ox O2 Delivery O2 Flow Rate FiO2 02/24/17 08:36 95 Room Air 02/24/17 08:00 95 Room Air 02/24/17 07:59 37.4 66 16 130/80 (97) 95 Room Air 02/24/17 07:32 36.9 68 18 134/82 (99) 95 Room Air Physical Exam: General Appearance: WD/WN, no apparent distress, + thin Eyes: bilateral eyes normal inspection ENT: hearing grossly normal Neck: no JVD, trachea midline Respiratory/Chest: no respiratory distress, no accessory muscle use Cardiovascular: no edema Extremities: non-tender, no pedal edema, no calf tenderness Neurologic/Psychiatric: alert, normal mood/affect, oriented x 3 Skin: normal color, warm/dry, no rash Lymphatic: no adenopathy Assessment & Plan Assessment & Plan Imaging: CT right UPJ stone plan uscope laser litho basket stone extraction stent I described surgery and risk of failure 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
[2017-02-24] MEDS ORDERED: BELLADONNA/OPIUM SUPP 60 MG SUPP PR ONE ×2 (17:11→17:45)
[2017-02-24] MEDS ORDERED: ONDANSETRON INJ 2 MG/ML 2 ML VIAL ONE (17:28)
[2017-02-24] MEDS ORDERED: DEXAMETHASONE SOD INJ 4 MG/ML VIAL ONE (17:28)
[2017-02-24] MEDS ORDERED: LIDOCAINE HCL 2% 2 ML VIAL (20MG/ML) ONE (17:28)
[2017-02-24] MEDS ORDERED: PROPOFOL IV EMULSION 10 MG/ML 20 ML VIAL IV ONE (17:28)
[2017-02-24] MEDS ORDERED: PHENAZOPYRIDINE HCL 200 MG TAB PO STA (17:38)
--- NOTE | 2017-02-24 17:38 | [facility] Operative Report ---
Operative Report Operative Date Feb 24, 2017. Pre-Operative Diagnosis Right Uretero-pelvic Junction Nephrolithiasis Post-Operative Diagnosis Right Ureteropelvic Junction Nephrolithiasis Procedure(s) Performed Cystoscopy, Stent placement right Surgeon Dr. 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 Description of Procedure Patient was given general LMA anesthesia and placed in lithotomy position. His genitals were prepped and draped in sterile fashion. Time out held with team. I placed a 21 fr rigid cystoscope to bladder. The urethra is unremarkable. The prostate is large long occlusive and elevates the bladder neck. It bleeds upon scope insertion. The UOs are medially displaced. I placed a road runner wire up right ureter to kidney. Wire went passed radio-opaque stone easily. I passed 5 fr open ended and changed wire to stiff wire. I passed a dual lumen catheter to try to calibrate the UVJ. The dual lumen wont pass the UVJ. I next tried to pass the flexible ureteroscope over the second wire and it wont pass the UVJ. I then removed scope. I placed a 6 fr 24 centimeter double J stent easily. I replaced the rigid cystoscope and removed a few mLs of clot and observed the stent. It is briskly effluxing urine with some debris from the right kidney. I left bladder empty and concluded case. I placed a belladonna and opium suppository for post-op pain. He transferred to recovery under my escort, in stable condition. Plan: Home today Pyridium for dysuria x 3 days flomax daily oral pain meds as needed back to OR next week for repeat attempt at stone treatment. 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 Any exceptions are noted below.
--- NOTE | 2017-02-24 17:44 | DIAGNOSTIC IMAGING REPORT ---
FLUOROSCOPIC IMAGES FROM RETROGRADE EXAM, LITHOTRIPSY AND STENT INSERTION CLINICAL HISTORY: CYSTO/LASER/STENT COMPARISON STUDY: CT of the abdomen and pelvis February 21, 2017 and KUB and renal ultrasound performed February 23, 2017. Fluoroscopy time: 46 seconds. FINDINGS: Single fluoroscopic image demonstrates placement of a right ureteral stent. Proximal aspect of stent projects over right renal pelvis. Distal aspect is not visualized on this exam. The right ureteral calculus shown on prior CT projects over the proximal aspect of the stent. IMPRESSION: Fluoroscopic image demonstrating placement of right ureteral stent with suspected visualization of the proximal right ureteral calculus. Electronically signed by: Jeyson Goldstein M.D. 02/24/2017 5:42 PM Dictated Date/Time: 02/24/2017 5:40 PM
[2017-02-24] MEDS ORDERED: NALOXONE HCL 0.4 MG/1 ML VIAL/CARP IV PRN (17:45)
[2017-02-24] MEDS ORDERED: LABETALOL HCL IV 5 MG/ML 20ML IV PRN (17:45)
[2017-02-24] MEDS ORDERED: FENTANYL CITRATE INJ 50 MCG/1 ML 2 ML VIAL IV PRN (17:45)
[2017-02-24] MEDS ORDERED: FLUMAZENIL 0.1 MG/1 ML 10 ML VIAL IV PRN (17:45)
[2017-02-24] MEDS ORDERED: EpHEDrine SULFATE INJ 50 MG/ML AMP IV PRN (17:45)
[2017-02-24] MEDS ORDERED: ATROPINE SULFATE 0.1 MG/ML 5ML SYR IV PRN (17:45)
[2017-02-24] MEDS ORDERED: PHENAZOPYRIDINE HCL 200 MG TAB PO PRN (17:45)
[2017-02-24] MEDS ORDERED: ONDANSETRON INJ 2 MG/ML 2 ML VIAL IV PRN (17:45)
[2017-02-24] MEDS ORDERED: MAGNESIUM HYDROXIDE SUSP 30 ML UDC PO ONE (17:45)
[2017-02-24] MEDS ORDERED: PROMETHAZINE HCL INJ 12.5 MG in SODIUM CHLORIDE 0.9% 50ML 50 ML IV PRN (17:45)
--- NOTE | 2017-02-24 18:28 | Anesthesiology Progress Note ---
Anesthesia Post Op Note Date & Time Feb 24, 2017 at 18:27 Vital Signs Pain Intensity: 0 Vital Signs Past 12 Hours Date Time Temp Pulse Resp B/P (MAP) Pulse Ox O2 Delivery O2 Flow Rate FiO2 02/24/17 18:17 37.0 02/24/17 18:16 128/70 02/24/17 18:13 71 16 98 02/24/17 18:13 73 16 02/24/17 18:11 139/98 02/24/17 18:08 73 14 02/24/17 18:08 72 14 100 02/24/17 18:07 71 19 02/24/17 18:07 71 19 98 02/24/17 18:06 143/91 02/24/17 18:02 74 16 02/24/17 18:02 73 16 97 02/24/17 18:01 146/90 02/24/17 17:57 73 17 02/24/17 17:57 73 17 98 02/24/17 17:56 148/90 02/24/17 17:52 72 16 100 02/24/17 17:52 71 16 02/24/17 17:51 146/87 02/24/17 17:47 72 17 02/24/17 17:47 71 17 100 02/24/17 17:46 147/91 02/24/17 17:42 77 15 100 02/24/17 17:42 77 15 02/24/17 17:41 147/95 02/24/17 17:38 155/94 02/24/17 17:37 79 16 100 02/24/17 17:37 79 16 02/24/17 17:37 37.9 80 16 155/94 100 Oxymask 10 02/24/17 16:48 37.0 73 18 156/101 (119) 98 Room Air 02/24/17 16:00 Room Air 02/24/17 08:36 95 Room Air 02/24/17 08:00 95 Room Air 02/24/17 07:59 37.4 66 16 130/80 (97) 95 Room Air 02/24/17 07:32 36.9 68 18 134/82 (99) 95 Room Air Notes Mental Status: alert / awake / arousable, participated in evaluation Pt Amnestic to Procedure: Yes Nausea / Vomiting: adequately controlled Pain: adequately controlled Airway Patency, RR, SpO2: stable & adequate BP & HR: stable & adequate Hydration State: stable & adequate Anesthetic Complications: no major complications apparent
[2017-02-24] MEDS ORDERED: PHEN-1043 PO (19:27)
[2017-02-24] MEDS ORDERED: TAMS0.4C38 PO (19:27)
--- NOTE | 2017-02-24 19:31 | Discharge Instructions ---
Discharge Instructions Date of Service Feb 24, 2017. Admission Reason for Admission: Renal Colic Discharge Discharge Diagnosis / Problem: Renal Colic Discharge Goals Goal(s): Decrease discomfort, Improve function, Diagnostic testing, Therapeutic intervention Activity Recommendations Activity Limitations: resume your previous activity . Instructions / Follow-Up Instructions / Follow-Up Please follow-up with your primary care physician Please follow-up with Dr. Paula Mitchell, urology, in one week Take Pyridium as needed for pain Take Flomax daily Current Hospital Diet Patient's current hospital diet: Regular Diet Discharge Diet Recommended Diet: Regular Diet Procedures Procedures Performed: Cystoscopy, Stent placement right Pending Studies Studies pending at discharge: no Medical Emergencies . Who to Call and When: Medical Emergencies: If at any time you feel your situation is an emergency, please call 911 immediately. . Non-Emergent Contact Non-Emergency issues call your: Primary Care Provider, Urologist . . "Provider Documentation" section prepared by Haylee Will. . VTE Core Measure Inpt VTE Proph given/why not?: SCD's
--- NOTE | 2017-02-24 19:34 | Discharge Summary ---
Discharge Summary Date of Service Feb 24, 2017. Discharge Summary Admission Date: Feb 23, 2017 at 21:34 Discharge Date: Feb 24, 2017 Discharge Disposition: Home Principal Diagnosis: Renal Colic, R UVJ stone Medication Reconciliation New Medications: Phenazopyridine HCl (Phenazopyridine HCl) 200 Mg Tab 200 MG PO TID PRN for Bladder pain for 3 Days, #9 TAB Changed Medications: Tamsulosin Hcl (Flomax) 0.4 Mg Cap 1 CAP PO DAILY for 30 Days, #30 CAP 0 Refills (Changed from: Alfuzosin Hcl ( Uroxatral) 10 Mg Tab 10 Mg PO DAILY #10 TAB) Continued Medications: Aspirin (Aspirin Chewable) 81 Mg Chew 81 MG PO DAILY Atorvastatin (Atorvastatin Calcium) 10 Mg Tab 10 MG PO DAILY Docusate Sodium (Stool Softener) 100 Mg Cap 100 MG PO DIRECTED Levothyroxine Sodium (Levothyroxine Sodium) 125 Mcg Tab 125 MCG PO QAM Multivitamins/Minerals (Mvi With Minerals) Tab 1 TAB PO DAILY Ondasetron Odt (Zofran Odt) 4 Mg Tab 4 MG SL Q6H for Nausea, #10 TAB Oxycodone Ir (Roxicodone Ir) 5 Mg Tab 1-2 TAB PO Q4H PRN for Pain, #10 TAB Admission Information Physical Exam (per Admitting): DATE OF ADMISSION: 02/23/2017 PRIMARY CARE DOCTOR: Dr. Valdez. CHIEF COMPLAINT: Right flank/kidney stone pain. HISTORY OF PRESENT ILLNESS: History obtained from patient and records. Medical history significant for BPH, urolithiasis, hypertension, PVD, arthritis, hypothyroidism. Recent confinement under orthopedic service 2012 for right knee surgery. As per the patient, in 10/2016, the patient was found to have a nonobstructing right kidney stone on CT scan done at [facility] in preparation for kidney donor candidacy, no symptoms. 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 Last few days, the patient noted right flank pain, achy, some nausea, no vomiting. Seen at the Emergency Room a few days ago. CAT scan of the abdomen and pelvis showed 6 x 4 mm obstructing calculus right UPJ with mild to moderate right hydronephrosis, exophytic nodule mid right kidney. Patient discharged on pain medication. Told to follow up w/ outpatient urology. No improvement of symptoms. Patient constipated last few days, some chills, no hematuria. Patient returned to the Emergency Room with intractable pain. MEDICAL HISTORY: As above. SURGERIES: He has had orthopedic procedures, prostate procedures. HOME MEDICATIONS: Include aspirin, atorvastatin, stool softener, levothyroxine, multivitamins, Uroxatral. ALLERGIES: TAMSULOSIN. FAMILY HISTORY: Kidney disease, heart disease. PERSONAL AND SOCIAL HISTORY: Nonsmoker, no chronic intake of alcoholic beverages. 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 REVIEW OF SYSTEMS: As per HPI, all other ROS negative. PHYSICAL EXAMINATION: VITAL SIGNS: Blood pressure was noted to be 150/93, pulse 72, RR 16, temperature 36.5, sats 96 on room air. GENERAL: Noted to be slightly uncomfortable. No respiratory distress. Looks younger for stated age. SKIN: Normal color. HEENT: Kirby palpebral conjunctivae. Dry mucosa. NECK: No JVD. Supple. CHEST: Clear to auscultation. HEART: Regular rate and rhythm. ABDOMEN: Soft. BACK: No flank tenderness. EXTREMITIES: No edema, no tenderness. NEUROLOGIC: No gross focality. LABORATORY DATA: Hemoglobin 14.7, hematocrit 42.2, white cells 12.31, platelets 176. Sodium 137, potassium 4.1, chloride 103, CO2 of 27, BUN 17, creatinine 0.3, glucose 106. KUB x-ray showed no change in position of 6 mm right UPJ calculus. Renal ultrasound, mild right hydronephrosis, 2.8 mm right renal cyst. ASSESSMENT: 1. Right renal colic. No sepsis. Failed outpatient treatment. Intractable symptoms. 2. Narcotic-induced constipation. 3. Hypertension, slightly elevated. 4. History of BPH as per records PLAN: GMF Analgesia. IV fluids. Hold off on antibiotics for now as patient not septic. Urology consult. RE renal colic (Patient known to Dr. Mitchell.) Bowel regimen. DVT prophylaxis, SCDs. Full code. Hospital Course This is a 71 year old male with a PMH of hypothyroidism, HLD presents with right renal colic Right UVJ Nephrolithiasis - stent placed as per urology CT shows a 6mm UVJ stone presented with extreme pain started on Percocet PRN noted Flomax allergy; started on an alpha fran IVFs urology consulted for further input Hypothyroid continue current medications/dose (125mcg) HLD continue statin DVT ppx SCDs FULL CODE Total time spent on discharge = 20 minutes This includes examination of the patient, discharge planning, medication reconciliation, and communication with other providers. Discharge Instructions Please follow-up with your primary care physician Please follow-up with Dr. Paula Mitchell, urology, in one week Take Pyridium as needed for pain Take Flomax daily
[2017-02-25] MEDS ORDERED: FINASTERIDE 5 MG TAB PO SCH (09:00)
[2017-03-01] MEDS ORDERED: FLM4 PO (14:07)
== END 2017-02-24 20:21 | disposition home or self-care (01) | DRG 694 ==
LOC: C.EDB 18:40 → C.MS2W 21:34 → EDBEDREQTM 21:41 → EDBEDREQ 21:41 → ENRESERV 22:40
PROVIDERS: ADMIT Family Medicine; ATTEND Family Medicine
PROC: 0T768DZ Dilation of Right Ureter with Intraluminal Device, Via Natural or Artificial Opening Endoscopic (ICD-10-PCS; principal; 2017-02-24 16:30)
DX: N20.1 Calculus of ureter (principal); I10 Essential (primary) hypertension; N40.0 Benign prostatic hyperplasia without lower urinary tract symptoms; I73.9 Peripheral vascular disease, unspecified; E03.9 Hypothyroidism, unspecified; K59.03 Drug induced constipation; E78.5 Hyperlipidemia, unspecified; Z96.653 Presence of artificial knee joint, bilateral; Z79.82 Long term (current) use of aspirin; N23 Unspecified renal colic; Z82.49 Family history of ischemic heart disease and other diseases of the circulatory system

== ENCOUNTER 2017-09-07 12:06 | Inpatient (IN) | payer OTHER ==
[~2017-09-07] VITALS: Ht 177.8 cm; Wt 83.6 kg
[~2017-09-07 12:06] MED LIST changes: -ALFU10TA30 PO; +FLM4 PO; -LEVO125T4 PO; +LEVO125T5 PO; -ONDA4TAB10 SL; -OXYC1TAB3 PO
[2017-09-07] MEDS ORDERED: VANCOMYCIN IV 1,500 MG in SODIUM CHLORIDE 0.9% 250ML 250 ML IV STA (12:42)
[2017-09-07] MEDS ORDERED: SODIUM CHLORIDE 0.9% 1000ML 1,000 ML IV STA (12:42)
[2017-09-07] MEDS ORDERED: AMPICILLIN/SULBACTAM SOD INJ 3,000 MG in SODIUM CHLORIDE 0.9% 100ML 100 ML IV STA (12:42)
[2017-09-07] MEDS ORDERED: VANCOMYCIN CONSULT ACTIVE PRN ×2 (12:45→15:45)
[2017-09-07] MEDS ORDERED: MELA1TAB49 PO (13:22)
--- NOTE | 2017-09-07 13:22 | DIAGNOSTIC IMAGING REPORT ---
R ELBOW MIN 3 VIEWS ROUTINE CLINICAL HISTORY: Right elbow pain. Fever. COMPARISON: None FINDINGS: Alignment of the right elbow is anatomic. There is no joint effusion. No fracture or suspicious lesion is present. There is minimal osteoarthritis of the right elbow. Note is made of diffuse soft tissue swelling of the right elbow, most pronounced overlying the olecranon. IMPRESSION: 1. No acute fracture or joint effusion of the right elbow. 2. No radiographic evidence of osteomyelitis. 3. Diffuse right elbow soft tissue swelling, most pronounced overlying the olecranon. Electronically signed by: Jeyson Goldstein M.D. 09/07/2017 1:20 PM Dictated Date/Time: 09/07/2017 1:19 PM
[2017-09-07 13:28] LABS: ISTAT IONIZED CALCIUM 1.14 mmol/l (1.12-1.32); ISTAT POTASSIUM 4.1 mEq/L (3.3-5.0)
[2017-09-07 13:31] LABS: BASO % 0.1 %; BASO ABS # 0.02 K/uL (0-0.2); EOS % 0.2 %; EOS ABS # 0.03 K/uL (0-0.5); HEMATOCRIT 44.1 % (42-52); HEMOGLOBIN 15.5 g/dL (14.0-18.0); IG# 0.08 K/uL (0.00-0.02); LYMPH ABS # 1.17 K/uL (1.2-3.4); MEAN CELL VOLUME 90.9 fL (80-100); MEAN CORPUSCULAR HGB CONC 35.1 g/dl (32-36); MEAN PLATELET VOLUME 10.7 fL (7.4-10.4); MONO % 7.4 %; MONO ABS # 1.24 K/uL (0.11-0.59); NEUT % 84.8 %; NEUT ABS # 14.11 K/uL (1.4-6.5); PLATELET COUNT 207 K/uL (130-400); RED CELL DISTRIBUTION WIDTH CV 13.3 % (11.5-14.5); RED CELL DISTRIBUTION WIDTH SD 43.8 fL (36.4-46.3); WHITE BLOOD COUNT 16.65 K/uL (4.8-10.8)
--- NOTE | 2017-09-07 13:34 | DIAGNOSTIC IMAGING REPORT ---
CHEST ONE VIEW PORTABLE CLINICAL HISTORY: 72 years-old Male presenting with fever. TECHNIQUE: Portable upright AP view of the chest was obtained. COMPARISON: 03/31/2013. FINDINGS: Atherosclerosis of the aortic arch. Tortuosity of the descending thoracic aorta. Cardiac silhouette normal in size. Lungs and pleural spaces clear. Degenerative changes of the thoracic spine. Upper abdomen normal. IMPRESSION: 1. No acute cardiopulmonary disease. Electronically signed by: Arnulfo Nazario M.D. 09/07/2017 1:33 PM Dictated Date/Time: 09/07/2017 1:32 PM
[2017-09-07 13:42] LABS: INR 0.9 (0.9-1.1)
[2017-09-07] MEDS ORDERED: VANCOMYCIN IV 1,500 MG in SODIUM CHLORIDE 0.9% 500ML 500 ML IV STA (13:42)
[2017-09-07 13:54] LABS: ALBUMIN 3.7 gm/dl (3.4-5.0); ALT/SGPT 23 U/L (12-78); BLOOD UREA NITROGEN 17 mg/dl (7-18); CALCIUM 9.2 mg/dl (8.5-10.1); CARBON DIOXIDE 27 mmol/L (21-32); CREATININE 0.96 mg/dl (0.60-1.40); GLUCOSE 104 mg/dl (70-99); POTASSIUM 4.1 mmol/L (3.5-5.1); SODIUM 137 mmol/L (136-145)
[2017-09-07 13:59] LABS: ALKALINE PHOSPHATASE 68 U/L (45-117); AST/SGOT 18 U/L (15-37); CKMB 0.7 ng/ml (0.5-3.6); TOTAL PROTEIN 7.5 gm/dl (6.4-8.2)
[2017-09-07] MEDS ORDERED: MELA3TAB7 PO (14:43)
--- NOTE | 2017-09-07 14:44 | History and Physical ---
History & Physical Date & Time of Service: Sep 07, 2017 at 14:44 Chief Complaint: R Elbow Inflammation Primary Care Physician: Arnulfo Valdez M.D. History of Present Illness Source: patient, clinic records, hospital records This is a 72-year-old male with a past medical history of hypothyroidism, HLD and history of renal stones who presents with worsening right elbow pain and swelling 2 days. Patient was carrying plywood up a flight of stairs ~6 weeks ago when he lost his balance and fell into the wall, hitting his elbow. Has experienced pain and tenderness since then but has been able to continue daily routine including working on his house, so was not too concerned. Started to notice some redness to his elbow earlier this week but as of 2 days ago, redness had spread down the forearm with associated warmth. Went running this morning and once he returned, he felt unable to get warm. Was seen by PCP and had a low grade fever ~100 degree F and was sent over to the ED with concern for septic joint. Patient denies any lightheadedness, visual changes, confusion , chest pain, shortness of breath, abdominal pain, nausea, vomiting, bowel or bladder changes or LE swelling. Past Medical/Surgical History Medical Problems: (1) DJD (degenerative joint disease) of knee Status: Chronic (2) HLD (hyperlipidemia) Status: Chronic (3) Hypothyroidism Status: Chronic (4) Renal colic Status: Chronic Surgical Problems: (1) History of total bilateral knee replacement Status: Chronic Family History FH: CHF (congestive heart failure) SISTER FH: HTN (hypertension) BROTHER SISTER No significant history FATHER MOTHER Social History Smoking Status: Never Smoker Alcohol Use: socially (2 drinks every evening (wine) ) Marital Status: Housing status: lives with significant other Occupational Status: retired Immunizations History of Influenza Vaccine: No History of Tetanus Vaccine?: No History of Pneumococcal: No History of Hepatitis B Vaccine: No Allergies Coded Allergies: No Known Allergies (Unverified , 09/07/17) Home Medications Scheduled Aspirin (Aspirin Chewable), 81 MG PO QAM Atorvastatin (Lipitor), 10 MG PO QAM Levothyroxine Sodium (Levothyroxine Sodium), 125 MCG PO QAM Multivitamins/Minerals (Mvi With Minerals), 1 TAB PO QAM Scheduled PRN Melatonin-Pyridoxine (Melatonin), 200 MCG PO HS PRN for Sleep Review of Systems Ten systems reviewed and negative except as noted in the HPI. Physical Exam Vital Signs Date Time Temp Pulse Resp B/P (MAP) Pulse Ox O2 Delivery O2 Flow Rate FiO2 09/07/17 12:17 37.2 107 18 141/89 97 Room Air General Appearance: WD/WN, no apparent distress Head: normocephalic, atraumatic Eyes: normal inspection, sclerae normal ENT: normal ENT inspection, hearing grossly normal, pharynx normal Neck: supple, thyroid normal, trachea midline Respiratory/Chest: chest non-tender, lungs clear, normal breath sounds, no respiratory distress, no accessory muscle use Cardiovascular: regular rate, rhythm, no murmur, normal peripheral pulses Abdomen/GI: non tender, soft, no organomegaly Back: normal inspection Extremities/Musculoskelatal: no calf tenderness, no pedal edema, + pertinent finding (Diffuse erythema, edema of R elbow with extension down forearm. Warm to touch, TTP at the olecranon. ROM intact. ) Neurologic/Psych: no motor/sensory deficits, alert, normal mood/affect, oriented x 3 Skin: normal color, warm/dry Diagnostics Laboratory Results Results Past 24 Hours Test 09/07/17 13:00 09/07/17 13:12 09/07/17 13:17 Range/Units White Blood Count 16.65 4.8-10.8 K/uL Red Blood Count 4.85 4.7-6.1 M/uL Hemoglobin 15.5 14.0-18.0 g/dL Hematocrit 44.1 42-52 % Mean Corpuscular Volume 90.9 80-100 fL Mean Corpuscular Hemoglobin 32.0 25-34 pg Mean Corpuscular Hemoglobin Concent 35.1 32-36 g/dl Platelet Count 207 130-400 K/uL Mean Platelet Volume 10.7 7.4-10.4 fL Neutrophils (%) (Auto) 84.8 % Lymphocytes (%) (Auto) 7.0 % Monocytes (%) (Auto) 7.4 % Eosinophils (%) (Auto) 0.2 % Basophils (%) (Auto) 0.1 % Neutrophils # (Auto) 14.11 1.4-6.5 K/uL Lymphocytes # (Auto) 1.17 1.2-3.4 K/uL Monocytes # (Auto) 1.24 0.11-0.59 K/uL Eosinophils # (Auto) 0.03 0-0.5 K/uL Basophils # (Auto) 0.02 0-0.2 K/uL RDW Standard Deviation 43.8 36.4-46.3 fL RDW Coefficient of Variation 13.3 11.5-14.5 % Immature Granulocyte % (Auto) 0.5 % Immature Granulocyte # (Auto) 0.08 0.00-0.02 K/uL Prothrombin Time 9.9 9.0-12.0 SECONDS Prothromb Time International Ratio 0.9 0.9-1.1 Sodium Level 137 136-145 mmol/L Potassium Level 4.1 3.5-5.1 mmol/L Chloride Level 105 98-107 mmol/L Carbon Dioxide Level 27 21-32 mmol/L Anion Gap 6.0 18.0 16-25 mmol/L Blood Urea Nitrogen 17 7-18 mg/dl Creatinine 0.96 0.60-1.40 mg/dl Est Creatinine Clear Calc Drug Dose 73.9 ml/min Estimated GFR () 92.4 Estimated GFR (Non- 79.8 BUN/Creatinine Ratio 17.6 10-20 Random Glucose 104 70-99 mg/dl Calcium Level 9.2 8.5-10.1 mg/dl Magnesium Level 2.1 1.8-2.4 mg/dl Total Bilirubin 0.8 0.2-1 mg/dl Direct Bilirubin 0.2 0-0.2 mg/dl Aspartate Amino Transf (AST/SGOT) 18 15-37 U/L Alanine Aminotransferase (ALT/SGPT) 23 12-78 U/L Alkaline Phosphatase 68 45-117 U/L Total Creatine Kinase 73 39-308 U/L Creatine Kinase MB 0.7 0.5-3.6 ng/ml Creatine Kinase MB Ratio 1.0 0-3.0 Troponin I < 0.015 0-0.045 ng/ml Total Protein 7.5 6.4-8.2 gm/dl Albumin 3.7 3.4-5.0 gm/dl Bedside Lactic Acid Venous 0.63 0.90-1.70 mmol/L Bedside Hemoglobin 14.3 14.0-18.0 g/dl Bedside Hematocrit 42 42-52 % Bedside Sodium 141 135-144 mEq/L Bedside Potassium 4.1 3.3-5.0 mEq/L Bedside Chloride 101 101-112 mEq/L Bedside Total CO2 27 24-31 mEq/l Bedside Blood Urea Nitrogen 18 7-18 mg/dl Bedside Creatinine 1.0 0.6-1.3 mg/dl Bedside Glucose (other) 112 70-99 mg/dl Bedside Ionized Calcium (Jerman) 1.14 1.12-1.32 mmol/l Microbiology Results 09/07/17 Blood Culture, Received Pending 09/07/17 Blood Culture, Received Pending Diagnostic Radiology R elbow XR: IMPRESSION: 1. No acute fracture or joint effusion of the right elbow. 2. No radiographic evidence of osteomyelitis. 3. Diffuse right elbow soft tissue swelling, most pronounced overlying the olecranon. CXR normal Impression Assessment and Plan This is a 72-year-old male with a past medical history of hypothyroidism, HLD and history of renal stones who presents with worsening right elbow pain and swelling 2 days. RUE cellulitis, possible septic olecranon bursitis: -Trauma to R elbow ~ 6 weeks ago -Redness, swelling worsened over last 2 days - Meets SIRS criteria with tachycardia, leukocytosis of 16, known source of infection -Lactic acid wnl -R elbow XR with diffuse right elbow tissue swelling, most pronounced overlying the olecranon No evidence of osteomyelitis, no acute fracture or joint effusion -Ortho consulted -24-48 hours of IV antibiotics -If no improvement, consider MRI vs surgical intervention -Vanc and zosyn empirically -Blood cultures pending -IVF resuscitation Hypothyroidism: -Cont levothyroxine HLD: -Cont statin DVT Ppx: SCDs Code status: FULL per discussion with patient PCP: Courtney Dispo: Admit to med/surg. Plan to return home once medically stable. Patient seen in collaboration with Dr. Guevara. Please see addendum. Attending Note: Patient is a 72 yr male with no significant PMH presents with history of worsening Right UE swelling, redness and tenderness. Patient admits to haveing a H/O trauma to his hand about 6 weeks ago. Also reports generalized weakness and fever. Denies any open wound, discharge. Physical Exam: Vitals signs as noted above General Appearance:Moderately built and nourished, no apparent distress Head: normocephalic, Atraumatic Eyes: normal inspection, EOMI, PERRL Neck: supple, Trachea midline Respiratory/Chest: Normal breath sounds, CTA Cardiovascular: S1, S2, No murmur Abdomen/GI:Soft, Non tender, Bowel sounds present Extremities/Musculoskelatal:normal inspection,RUE swelling, redness, tenderness Neurologic/Psych:AAOX3, grossly no focal neurological deficits Skin:normal color,warm and positive findings as above Assessment and Plan: RUE cellulitis Possible septic olecranon bursitis Meets SIRS criteria Started on IV Vanco and Zosyn Appreciate Orthopedics Input Follow up Blood cultures IV fluids Normal POC lactate levels May need surgical intervention if clinically deteriorates I personally reviewed the record. Patient is interviewed and examined at bedside. Patient's care is coordinated with Carly Cohen PA-C. Please refer to the documentation above for details of patient's presentation and for discussion of other issues. Resuscitation Status VTE Prophylaxis Will order VTE Prophylaxis: Yes
[2017-09-07] MEDS ORDERED: ACETAMINOPHEN 325 MG TAB ONE (15:04)
--- NOTE | 2017-09-07 15:19 | Orthopedic Consultation ---
Orthopedic Consultation Date of Consultation: Sep 07, 2017. Attending Physician: Reason for Consultation: RIGHT ELBOW PAIN History of Present Illness Patient is a 72yo male complaining of right elbow pain and swelling. Patient bumped his elbow on some wood about 6 weeks ago. He denies any acute issues at that time. He had no open wounds. About 2 days ago patient began to develop increased pain and swelling. He doesn't have documented fever but says he's felt warm today. He is currently in the ED and being admitted for possible septic olecranon bursitis. Past Medical/Surgical History Medical Problems: (1) Kidney stone Status: Acute (2) Renal colic Status: Acute (3) Right flank pain Status: Acute Family History FH: CHF (congestive heart failure) SISTER FH: HTN (hypertension) BROTHER SISTER No significant history FATHER MOTHER Social History Smoking Status: Never Smoker Alcohol Use: socially (2 drinks every evening (wine) ) Marital Status: Housing Status: lives with family Occupation Status: retired Allergies Coded Allergies: No Known Allergies (Unverified , 09/07/17) Home Medications Scheduled Aspirin (Aspirin Chewable), 81 MG PO QAM Atorvastatin (Lipitor), 10 MG PO QAM Levothyroxine Sodium (Levothyroxine Sodium), 125 MCG PO QAM Multivitamins/Minerals (Mvi With Minerals), 1 TAB PO QAM Scheduled PRN Melatonin-Pyridoxine (Melatonin), 200 MCG PO HS PRN for Sleep Current Inpatient Medications Current Inpatient Medications Medications (Trade) Dose Ordered Sig/Yasmine Route Start Time Stop Time Status Last Admin Dose Admin Miscellaneous Information (Consult) 1 ea UD PRN N/A 09/07/17 12:45 10/07/17 12:44 Vancomycin HCl 1500 mg/Sodium Chloride 530 ml @ 200 mls/hr NOW STAT IV 09/07/17 13:42 09/07/17 16:20 09/07/17 13:45 200 MLS/HR Acetaminophen (Tylenol Tab) 650 mg Q4H PRN PO 09/07/17 14:45 10/07/17 14:44 UNV Piperacillin Sod/ Tazobactam Sod 4.5 gm/Dextrose 120 ml @ 200 mls/hr Q6 IV 09/07/17 18:00 09/21/17 17:59 UNV Sodium Chloride 1,000 ml @ 80 mls/hr [id number] IV 09/07/17 14:45 09/08/17 03:14 UNV Miscellaneous Information (Pharmacy Consult) 1 ea NOW STAT N/A 09/07/17 14:39 09/07/17 14:40 UNV Physical Exam Date Time Temp Pulse Resp B/P (MAP) Pulse Ox O2 Delivery O2 Flow Rate FiO2 09/07/17 15:06 39.3 111 20 143/91 95 Room Air 09/07/17 12:17 37.2 107 18 141/89 97 Room Air General Appearance: WD/WN, no apparent distress Head: normocephalic, atraumatic Eyes: normal inspection, PERRL ENT: normal ENT inspection, hearing grossly normal Neck: supple, no adenopathy Extremities/Musculoskelatal: normal capillary refill, normal range of motion, + inflammation, + swelling, + pertinent finding (Patient has diffuse erythema consistent with cellulitis over much of the forearm and extending up the bicep area. He has no obvious streaking at this time. He has localized tenderness at the olecranon but is otherwise non tender. ROM of the wrist, elbow and shoulder fully intact without pain. NV intact.) Neurologic/Psych: alert, normal mood/affect, normal reflexes, oriented x 3 Skin: no rash Laboratory Results Last 24 Hours Test 09/07/17 13:00 09/07/17 13:12 09/07/17 13:17 White Blood Count 16.65 K/uL Red Blood Count 4.85 M/uL Hemoglobin 15.5 g/dL Hematocrit 44.1 % Mean Corpuscular Volume 90.9 fL Mean Corpuscular Hemoglobin 32.0 pg Mean Corpuscular Hemoglobin Concent 35.1 g/dl Platelet Count 207 K/uL Mean Platelet Volume 10.7 fL Neutrophils (%) (Auto) 84.8 % Lymphocytes (%) (Auto) 7.0 % Monocytes (%) (Auto) 7.4 % Eosinophils (%) (Auto) 0.2 % Basophils (%) (Auto) 0.1 % Neutrophils # (Auto) 14.11 K/uL Lymphocytes # (Auto) 1.17 K/uL Monocytes # (Auto) 1.24 K/uL Eosinophils # (Auto) 0.03 K/uL Basophils # (Auto) 0.02 K/uL RDW Standard Deviation 43.8 fL RDW Coefficient of Variation 13.3 % Immature Granulocyte % (Auto) 0.5 % Immature Granulocyte # (Auto) 0.08 K/uL Prothrombin Time 9.9 SECONDS Prothromb Time International Ratio 0.9 Sodium Level 137 mmol/L Potassium Level 4.1 mmol/L Chloride Level 105 mmol/L Carbon Dioxide Level 27 mmol/L Anion Gap 6.0 mmol/L 18.0 mmol/L Blood Urea Nitrogen 17 mg/dl Creatinine 0.96 mg/dl Est Creatinine Clear Calc Drug Dose 73.9 ml/min Estimated GFR () 92.4 Estimated GFR (Non- 79.8 BUN/Creatinine Ratio 17.6 Random Glucose 104 mg/dl Calcium Level 9.2 mg/dl Magnesium Level 2.1 mg/dl Total Bilirubin 0.8 mg/dl Direct Bilirubin 0.2 mg/dl Aspartate Amino Transf (AST/SGOT) 18 U/L Alanine Aminotransferase (ALT/SGPT) 23 U/L Alkaline Phosphatase 68 U/L Total Creatine Kinase 73 U/L Creatine Kinase MB 0.7 ng/ml Creatine Kinase MB Ratio 1.0 Troponin I < 0.015 ng/ml Total Protein 7.5 gm/dl Albumin 3.7 gm/dl Bedside Lactic Acid Venous 0.63 mmol/L Bedside Hemoglobin 14.3 g/dl Bedside Hematocrit 42 % Bedside Sodium 141 mEq/L Bedside Potassium 4.1 mEq/L Bedside Chloride 101 mEq/L Bedside Total CO2 27 mEq/l Bedside Blood Urea Nitrogen 18 mg/dl Bedside Creatinine 1.0 mg/dl Bedside Glucose (other) 112 mg/dl Bedside Ionized Calcium (Jerman) 1.14 mmol/l Assessment & Plan Possible septic olecranon bursitis RUE cellulitis Patient is being admitted to the medical service. He has been started on empiric Vancomycin. He has some swelling on exam but no obvious wounds, abscess , or fluid collection. He has some mild fluctuance at the olecranon but overall appears to have a more cellulitic presentation. Recommend 24-48 hours of IV antibiotics and access his clinical response. If no improvement, may consider MRI vs surgical intervention. Will discuss the plan with Dr. Barraza and have him evaluate the patient later this afternoon. Thank you for consultation.
[2017-09-07 15:25] VITALS: BP 143/66; PULSE 113; TEMP 38.6; Ht 177.8 cm; Wt 83.6 kg
[2017-09-07 15:40] VITALS: BP 143/66; PULSE 113; TEMP 38.6; O2SAT 93
[2017-09-07] MEDS ORDERED: SODIUM CHLORIDE 0.9% 1000ML 1,000 ML IV SCH (15:40)
[2017-09-07] MEDS ORDERED: PIPERACILL/TAZOBAC CONSULT ACTIVE PRN (15:45)
--- NOTE | 2017-09-07 15:52 | EMERGENCY ROOM VISIT NOTE ---
History Report prepared by Tessieibayan: Anne-Marie Cruz Under the Supervision of: Dr. Yobani Herrera D.O. First contact with patient: 12:37 Chief Complaint: ELBOW PAIN/INJURY Stated Complaint: R ELBOW INFLAMMATION History of Present Illness The patient is a 72 year old male who presents to the Emergency Room with complaints of worsening right elbow pain beginning two days ago. The patient reports swelling and redness to his right elbow beginning two days ago. He reports 10/10 stabbing pain when his elbow is being touched or movement. The patient reports he was carrying a piece of plywood and fell and hit his elbow about a month ago. He notes a fever beginning yesterday. Patient denies any other complaints. Pt denies headache, change in vision, chest pain, shortness of breath, nausea, vomiting, diarrhea, pain with urination, and melena. Source of History: patient Onset: two days ago Position: elbow (right) Symptom Intensity: 10/10 Quality: stabbing Timing: worsening Associated Symptoms: + fevers, No chest pain, No SOB, No nausea, No vomiting , No urinary symptoms Review of Systems See HPI for pertinent positives & negatives. A total of 10 systems reviewed and were otherwise negative. Past Medical & Surgical Medical Problems: (1) DJD (degenerative joint disease) of knee (2) HLD (hyperlipidemia) (3) Hypothyroidism (4) Renal colic Surgical Problems: (1) History of total bilateral knee replacement Family History FH: CHF (congestive heart failure) SISTER FH: HTN (hypertension) BROTHER SISTER No significant history FATHER MOTHER Social History Smoking Status: Never Smoker Marital Status: single, Housing Status: lives with family Occupation Status: retired Current/Historical Medications Scheduled Aspirin (Aspirin Chewable), 81 MG PO QAM Atorvastatin (Lipitor), 10 MG PO QAM Levothyroxine Sodium (Levothyroxine Sodium), 125 MCG PO QAM Multivitamins/Minerals (Mvi With Minerals), 1 TAB PO QAM Scheduled PRN Melatonin-Pyridoxine (Melatonin), 200 MCG PO HS PRN for Sleep Allergies Coded Allergies: No Known Allergies (Unverified , 09/07/17) Physical Exam Vital Signs Date Time Temp Pulse Resp B/P (MAP) Pulse Ox O2 Delivery O2 Flow Rate FiO2 09/07/17 12:17 37.2 107 18 141/89 97 Room Air Physical Exam GENERAL: Sitting up in bed, alert, well appearing, well nourished, no distress, non-toxic EYE EXAM: normal conjunctiva. OROPHARYNX: no exudate, no erythema, lips, buccal mucosa, and tongue normal and mucous membranes are moist NECK: supple, no nuchal rigidity, no adenopathy, non-tender LUNGS: Clear to auscultation. Normal chest wall mechanics HEART: no murmurs, S1 normal and S2 normal ABDOMEN: abdomen soft, non-tender, normo-active bowel sounds, no masses, no rebound or guarding. BACK: Back is symmetrical on inspection and there is no deformity, no midline tenderness, no CVA tenderness. SKIN: no rashes and no bruising UPPER EXTREMITIES: Swelling and erythema tracking from right wrist to just distal axilla, warm and tender to palpation, small amount of fluctuance over right elbow, radial pulses 2/6, gross sensation intact. LOWER EXTREMITIES: No pitting edema. NEURO EXAM: Normal sensorium, cranial nerves II-XII grossly intact, normal speech, no gross weakness of arms, no gross weakness of legs. Medical Decision & Procedures ER Provider Diagnostic Interpretation: Radiology results as stated below per my review and the radiologist's interpretation: R ELBOW MIN 3 VIEWS ROUTINE FINDINGS: Alignment of the right elbow is anatomic. There is no joint effusion. No fracture or suspicious lesion is present. There is minimal osteoarthritis of the right elbow. Note is made of diffuse soft tissue swelling of the right elbow, most pronounced overlying the olecranon. IMPRESSION: 1. No acute fracture or joint effusion of the right elbow. 2. No radiographic evidence of osteomyelitis. 3. Diffuse right elbow soft tissue swelling, most pronounced overlying the olecranon. Electronically signed by: Jeyson Goldstein M.D. CHEST ONE VIEW PORTABLE FINDINGS: Atherosclerosis of the aortic arch. Tortuosity of the descending thoracic aorta. Cardiac silhouette normal in size. Lungs and pleural spaces clear. Degenerative changes of the thoracic spine. Upper abdomen normal. IMPRESSION: 1. No acute cardiopulmonary disease. Electronically signed by: Arnulfo Nazario M.D. Laboratory Results 09/07/17 13:00 Red Blood Count 4.85, Mean Corpuscular Volume 90.9, Mean Corpuscular Hemoglobin 32.0, Mean Corpuscular Hemoglobin Concent 35.1, Mean Platelet Volume 10.7, Neutrophils (%) (Auto) 84.8, Lymphocytes (%) (Auto) 7.0, Monocytes (%) (Auto) 7.4, Eosinophils (%) (Auto) 0.2, Basophils (%) (Auto) 0.1, Neutrophils # (Auto) 14.11, Lymphocytes # (Auto) 1.17, Monocytes # (Auto) 1.24, Eosinophils # (Auto) 0.03, Basophils # (Auto) 0.02 09/07/17 13:00 Test 09/07/17 13:00 09/07/17 13:12 09/07/17 13:17 White Blood Count 16.65 K/uL (4.8-10.8) Red Blood Count 4.85 M/uL (4.7-6.1) Hemoglobin 15.5 g/dL (14.0-18.0) Hematocrit 44.1 % (42-52) Mean Corpuscular Volume 90.9 fL (80-100) Mean Corpuscular Hemoglobin 32.0 pg (25-34) Mean Corpuscular Hemoglobin Concent 35.1 g/dl (32-36) Platelet Count 207 K/uL (130-400) Mean Platelet Volume 10.7 fL (7.4-10.4) Neutrophils (%) (Auto) 84.8 % Lymphocytes (%) (Auto) 7.0 % Monocytes (%) (Auto) 7.4 % Eosinophils (%) (Auto) 0.2 % Basophils (%) (Auto) 0.1 % Neutrophils # (Auto) 14.11 K/uL (1.4-6.5) Lymphocytes # (Auto) 1.17 K/uL (1.2-3.4) Monocytes # (Auto) 1.24 K/uL (0.11-0.59) Eosinophils # (Auto) 0.03 K/uL (0-0.5) Basophils # (Auto) 0.02 K/uL (0-0.2) RDW Standard Deviation 43.8 fL (36.4-46.3) RDW Coefficient of Variation 13.3 % (11.5-14.5) Immature Granulocyte % (Auto) 0.5 % Immature Granulocyte # (Auto) 0.08 K/uL (0.00-0.02) Prothrombin Time 9.9 SECONDS (9.0-12.0) Prothromb Time International Ratio 0.9 (0.9-1.1) Est Creatinine Clear Calc Drug Dose 73.9 ml/min Estimated GFR () 92.4 Estimated GFR (Non- 79.8 BUN/Creatinine Ratio 17.6 (10-20) Calcium Level 9.2 mg/dl (8.5-10.1) Magnesium Level 2.1 mg/dl (1.8-2.4) Total Bilirubin 0.8 mg/dl (0.2-1) Direct Bilirubin 0.2 mg/dl (0-0.2) Aspartate Amino Transf (AST/SGOT) 18 U/L (15-37) Alanine Aminotransferase (ALT/SGPT) 23 U/L (12-78) Alkaline Phosphatase 68 U/L (45-117) Total Creatine Kinase 73 U/L (39-308) Creatine Kinase MB 0.7 ng/ml (0.5-3.6) Creatine Kinase MB Ratio 1.0 (0-3.0) Troponin I < 0.015 ng/ml (0-0.045) Total Protein 7.5 gm/dl (6.4-8.2) Albumin 3.7 gm/dl (3.4-5.0) Bedside Lactic Acid Venous 0.63 mmol/L (0.90-1.70) Bedside Hemoglobin 14.3 g/dl (14.0-18.0) Bedside Hematocrit 42 % (42-52) Bedside Sodium 141 mEq/L (135-144) Bedside Potassium 4.1 mEq/L (3.3-5.0) Bedside Chloride 101 mEq/L (101-112) Bedside Total CO2 27 mEq/l (24-31) Anion Gap 18.0 mmol/L (16-25) Bedside Blood Urea Nitrogen 18 mg/dl (7-18) Bedside Creatinine 1.0 mg/dl (0.6-1.3) Bedside Glucose (other) 112 mg/dl (70-99) Bedside Ionized Calcium (Jerman) 1.14 mmol/l (1.12-1.32) Laboratory results per my review. Medications Administered Medications (Trade) Dose Ordered Sig/Yasmine Route Start Time Stop Time Status Last Admin Dose Admin Sodium Chloride 1,000 ml @ 999 mls/hr Q1H1M STAT IV 09/07/17 12:42 09/07/17 13:42 DC 09/07/17 12:57 999 MLS/HR Ampicillin Sodium/ Sulbactam Sodium 3000 mg/Sodium Chloride 108 ml @ 200 mls/hr NOW STAT IV 09/07/17 12:42 09/07/17 13:14 DC 09/07/17 13:01 200 MLS/HR Vancomycin HCl 1500 mg/Sodium Chloride 530 ml @ 200 mls/hr NOW STAT IV 09/07/17 13:42 09/07/17 16:20 09/07/17 13:45 200 MLS/HR ED Course ED COURSE: Vital signs were reviewed and showed Tachycardic The patients medical record was reviewed The above diagnostic studies were performed and reviewed. ED treatments and interventions as stated above. 1238: The patient was evaluated in room C1B. A complete history and physical examination was performed. 1317: I reviewed the patient's case with Dr. Calabrese-Orthopedic. He recommend bring the patient in for further management. 1335: I reviewed the patient's case with Priti Stout. She will evaluate the patient for further management. 1339: I updated the patient on the treatment plan. He is agreeable. 1456: Upon reevaluation, the patient is resting comfortably.I discussed my findings with the patient and he understands and agrees with the treatment plan. Based on the patients age, coexisting illnesses, exam and lab findings the decision to treat as an outpatient was made. The patient remained stable while under my care. The patient will be evaluated for further management. Medical Decision Differential diagnosis: Etiologies such as cellulitis, abscess, MRSA infection, DVT, necrotizing fasciitis, dermatitis, drug eruption, as well as others were entertained.. Patient is a 72-year-old male that presents to ER for right elbow pain. He has a right olecranon bursitis along with cellulitis extending from his right wrist almost to his axilla. CBC shows a leukocytosis of 16,000. BMP along with LFTs , bilirubin and troponin were negative. Lactic acid was normal. Ridging shows no acute fractures. Discussed case with orthopedics internal medicine. Patient was given fluids and IV antibiotics. He was admitted to internal medicine for olecranon bursitis associated with a cellulitis of the right upper extremity. Medication Reconcilliation Current Medication List: was personally reviewed by me Blood Pressure Screening Patient's blood pressure: Normal blood pressure Consults Time Called: 1320 Consulting Physician: Priti Stout Returned Call: 1335 I reviewed the patient's case with Priti Stout. She will evaluate the patient for further management. Additional Consults: Time Called: 1310 Consulted Physician: Dr. Walton Returned Call: [phone] Additional Comments: I reviewed the patient's case with Dr. Walton. He recommend bring the patient in for further management. Impression Primary Impression: Sepsis Additional Impressions: Olecranon bursitis Cellulitis of right elbow Scribe Attestation The scribe's documentation has been prepared under my direction and personally reviewed by me in its entirety. I confirm that the note above accurately reflects all work, treatment, procedures, and medical decision making performed by me. Departure Information Dispostion Being Evaluated By Hospitalist Referrals No Doctor, Assigned (PCP) Patient Instructions My [facility] Problem Qualifiers Primary Impression: Sepsis Sepsis type: sepsis due to unspecified organism Qualified Codes: A41.9 - Sepsis, unspecified organism Additional Impressions: Olecranon bursitis Laterality: right Qualified Codes: M70.21 - Olecranon bursitis, right elbow
[2017-09-07] MEDS ORDERED: PIPERACILL/TAZOBAC IV 3.375 GM in DEXTROSE 5% 100ML IV ONE (16:00)
--- NOTE | 2017-09-07 16:03 | Pharmacy Progress Note ---
Pharmacy Abx Initial Consult Date of Service Sep 07, 2017. Pharmacy Dosing Scope Date of Consult: 09/07/17 Consultation requested by: Carly Cohen PAC Pharmacy is consulted to initiate Vancomycin and Zosyn dosing therapy, order appropriate labs and adjust drug dose/frequency. Subjective The patient is a 72 year old male admitted on Sep 07, 2017 at 14:32 with septic joint following and incident with his elbow. He had bumped recently while carrying a piece of plywood while working on his house. It had not bothered him until today he noticed it was more red and warm and after returning from jogging he was unable to get warm. He is now admitted for broad spectrum antibiotic therapy by Ronny Cohen. Objective Height (Feet): 5 Height (Inches): 10.00 Weight (Kilograms): 84.200 Vital Signs (Past 12Hrs) Vital Signs Past 12 Hours Date Time Temp Pulse Resp B/P (MAP) Pulse Ox O2 Delivery O2 Flow Rate FiO2 09/07/17 15:40 38.6 113 18 143/66 (91) 93 Room Air 09/07/17 15:17 39.3 111 20 143/91 95 09/07/17 15:06 39.3 111 20 143/91 95 Room Air 09/07/17 12:17 37.2 107 18 141/89 97 Room Air Lab Results (24Hrs) Laboratory Tests (24 Hours) Test 09/07/17 13:00 White Blood Count 16.65 K/uL (4.8-10.8) H Red Blood Count 4.85 M/uL (4.7-6.1) Hemoglobin 15.5 g/dL (14.0-18.0) Hematocrit 44.1 % (42-52) Mean Corpuscular Volume 90.9 fL (80-100) Mean Corpuscular Hemoglobin 32.0 pg (25-34) Mean Corpuscular Hemoglobin Concent 35.1 g/dl (32-36) Platelet Count 207 K/uL (130-400) Mean Platelet Volume 10.7 fL (7.4-10.4) H Neutrophils (%) (Auto) 84.8 % Lymphocytes (%) (Auto) 7.0 % Monocytes (%) (Auto) 7.4 % Eosinophils (%) (Auto) 0.2 % Basophils (%) (Auto) 0.1 % Neutrophils # (Auto) 14.11 K/uL (1.4-6.5) H Lymphocytes # (Auto) 1.17 K/uL (1.2-3.4) L Monocytes # (Auto) 1.24 K/uL (0.11-0.59) H Eosinophils # (Auto) 0.03 K/uL (0-0.5) Basophils # (Auto) 0.02 K/uL (0-0.2) Total Creatine Kinase 73 U/L (39-308) Micro Results Date/Time Source Procedure Growth Status 09/07/17 13:05 Blood Blood Culture Pending Received 09/07/17 13:00 Blood Blood Culture Pending Received Assessment & Plan Assessment 72 year old male with septic joint (Elbow) Plan Vancomycin IV * Loading dose: 1500mg (18 mg/kg) * Maintenance dose: 1250 mg IV (15 mg/kg) every 12 hours * Goal trough level : 15-20 mcg/mL * Trough level ordered prior to noon dose on 09/09/17 Piperacillin/tazobactam * 3.375 g bolus administered over 30 minutes, then 3.375g IV extended infusion every 8 hours for CrCl greater than 20 mL/min Pharmacy will continue to follow and will adjust dose/frequency as necessary. Thank you.
[2017-09-07 19:00] VITALS: TEMP 37.1
[2017-09-07] MEDS: PIPERACILL/TAZOBAC IV 3.375 GM in DEXTROSE 5% 100ML 100 ML IV SCH (21:40)
[2017-09-07 23:41] VITALS: BP 125/75; PULSE 85; TEMP 38.2; O2SAT 94
[2017-09-08] MEDS: ACETAMINOPHEN 325 MG TAB PO PRN ×2 (00:16→15:45)
[2017-09-08] MEDS: VANCOMYCIN IV 1,250 MG in SODIUM CHLORIDE 0.9% 250ML 250 ML IV SCH ×3 (00:19→23:58)
[2017-09-08 01:22] VITALS: TEMP 37.2
[2017-09-08] MEDS: PIPERACILL/TAZOBAC IV 3.375 GM in DEXTROSE 5% 100ML 100 ML IV SCH ×2 (06:06→13:58)
[2017-09-08 07:20] VITALS: BP 130/86; PULSE 81; TEMP 36.9; O2SAT 98
[2017-09-08 07:55] LABS: HEMOGLOBIN 14.3 g/dL (14.0-18.0); MEAN CELL VOLUME 91.5 fL (80-100); MEAN CORPUSCULAR HEMOGLOBIN 31.9 pg (25-34); MEAN CORPUSCULAR HGB CONC 34.9 g/dl (32-36); MEAN PLATELET VOLUME 9.7 fL (7.4-10.4); PLATELET COUNT 183 K/uL (130-400); RED CELL DISTRIBUTION WIDTH CV 13.5 % (11.5-14.5); RED CELL DISTRIBUTION WIDTH SD 44.7 fL (36.4-46.3); WHITE BLOOD COUNT 17.34 K/uL (4.8-10.8)
[2017-09-08 08:21] LABS: CALCIUM 8.5 mg/dl (8.5-10.1); CREATININE 0.9 mg/dl (0.60-1.40); POTASSIUM 3.9 mmol/L (3.5-5.1)
--- NOTE | 2017-09-08 08:56 | Clinical Documentation Query ---
CLINICAL DOCUMENTATION QUERY Dr. ALEMAN, In your clinical opinion is this patient being managed for: (x ) systemic Sepsis due to infective/septic olecranon bursitis ( ) Not Agree ( ) Other explanation of clinical findings (Please Explain) ( ) Unable to determine (Please Define) ( ) Need to Discuss The medical record reflects the following clinical findings, treatment, and risk factors. Clinical Indicators: 72 yo male presenting with worsening elbow pain. Pt reported feeling like he couldn't get warm. Temp max 39.3, HR 107-113, WBC 16.65. H/P indicates pt meets SIRS criteria with a known infection source. Treatment: 1L NSS bolus then continuous, IV ampicillin, IV vancomycin, blood cultures pending, IV zosyn, ortho consult Risk Factors: infective/septic olecranon bursitis Please clarify and document your clinical opinion in the progress notes and discharge summary. Terms such as "probable", "suspected", "likely", "questionable", "possible", or "still to be ruled out" are acceptable. IF IN AGREEMENT, YOU MUST DOCUMENT ABOVE DIAGNOSTIC STATEMENT IN DAILY PROGRESS NOTES AND DISCHARGE SUMMARY. This document is not part of the patient's record. Thank You, Alanis Reyes RN [phone]
[2017-09-08 15:27] VITALS: O2SAT 98
[2017-09-08 16:38] VITALS: BP 107/53; PULSE 86; TEMP 38.3; O2SAT 95
--- NOTE | 2017-09-08 17:40 | ORTHOPEDIC PROGRESS NOTE ---
DATE: 09/08/2017 SUBJECTIVE: The patient is a 72-year-old white male who was admitted for possible septic olecranon bursitis yesterday. He has been about 24 hours of having IV antibiotics and he is currently lying in his bed. He states that he has not had much pain with the whole process but has been having fevers off and on. He states that he felt that he was getting a low grade fever at the time of my visit. He does not feel that the cellulitis has gone down that much, but has noticed a little difference in the way the arm feels since his admission. He denies any numbness or tingling going down to the extremity into the fingers and no overt pain at this time. OBJECTIVE: EXTREMITIES: On examination of the patient's right upper extremity, he still has moderate erythema of the forearm and up to the elbow and just above the elbow at this time. No open draining wounds at the elbow. He has no essential pain on palpation of the forearm or even no major pain at the elbow. He states he has some slight tenderness on palpation at the elbow, at the olecranon bursa. He has full range of motion of his arm at this time and denies any pain. There is some mild fluctuance noted at the olecranon bursa, although the bursa itself is not overtly swollen. ASSESSMENT: Likely septic olecranon bursitis, slow to resolve. PLAN: Continue IV antibiotics at this time. I will discuss with Dr. Godinez about possibly trying to aspirate the olecranon bursa this evening, if he feels it is warranted, although the patient has been on 24 hours of IV antibiotics. Out of precaution, if he is no better by tomorrow, we will make him n.p.o. after midnight tonight for possible irrigation and debridement of the right olecranon bursa.
[2017-09-08] MEDS: CEFEPIME IV 2,000 MG in SYRINGE 7.5 ML IV SCH (22:00)
--- NOTE | 2017-09-08 22:24 | ORTHOPEDIC CONSULTATION ---
DATE OF CONSULTATION: 09/08/2017 The patient is seen in followup consultation. Exam addressed to his right elbow. He still has cellulitis from the form area, posterior elbow area of the medial arm with some lymphangitis. So far, he has not had any major improvement on IV vancomycin. I did examine his olecranon bursa which had some fluctuance, felt to have some fluid there. So I did discuss aspirating this with the patient. He was agreeable with that. I went ahead and sterilely prepped the area with Betadine and then we placed 18 gauge needle into the olecranon bursa. I was able to aspirate 3 mL of clear bursal fluid. I did not see any evidence of cloudiness, any evidence of pus in the olecranon bursa itself. This was provided to the nurses to send to the lab for stat Gram stain culture and sensitivity. The patient is tentatively placed n.p.o. for possible surgery if the patient does not show any improvement on IV antibiotics.
[2017-09-08 23:16] VITALS: BP 114/74; PULSE 70; TEMP 36.7; O2SAT 98
[2017-09-09 07:33] VITALS: BP 125/75; PULSE 74; TEMP 36.6; O2SAT 98
[2017-09-09 08:14] LABS: CREATININE 0.83 mg/dl (0.60-1.40)
--- NOTE | 2017-09-09 09:16 | Progress Note ---
Internal Med Progress Note Date of Service: Sep 08, 2017. Provider Documentation: SUBJECTIVE: still right upper extremity erythematous involving elbow fore arm and arm has pain and tenderness afebrile no chest pain or sob no cough OBJECTIVE: Vital Signs-as noted below Exam: General-alert and oriented. ENT-Normal hearing Neck-no neck masses Lungs-cta b/l no wheezing no crackles present Heart-S1 and S2 heard regular rate and rhythm no murmurs . Abdomen-Soft bowel sounds present non tender no distension Extremities- erythema, tender and warmth of right upper extremity involving elbow arm and forearm Neuro-alert and awake moves extremities Lab data as noted below. ASSESSMENT & PLAN: This is a 72-year-old male with a past medical history of hypothyroidism, HLD and history of renal stones who presents with worsening right elbow pain and swelling 2 days. RUE cellulitis, possible septic olecranon bursitis: possible sepsis. Presented with fever, tachycardia, leukocytosis Trauma to R elbow ~ 6 weeks ago on iv zosyn and iv vanco orthopedics on board continue same for now await cx Hypothyroidism: on levothyroxine HLD: on statin DVT Ppx: SCDs Code status: FULL per discussion with patient PCP: Courtney DISPOSITION to be determined Vital Signs: Date Time Temp Pulse Resp B/P (MAP) Pulse Ox O2 Delivery O2 Flow Rate FiO2 09/09/17 08:00 Room Air 09/09/17 07:33 36.6 74 18 125/75 (92) 98 Room Air 09/09/17 00:00 Room Air 09/08/17 23:16 36.7 70 18 114/74 (87) 98 Room Air 09/08/17 16:38 38.3 86 18 107/53 (71) 95 Room Air 09/08/17 15:27 98 Room Air Lab Results: Results Past 24 Hours Test 09/09/17 02:10 09/09/17 06:47 Range/Units Urine Color YELLOW Urine Appearance CLEAR CLEAR Urine pH 5.0 4.5-7.5 Urine Specific [place] 1.027 1.000-1.030 Urine Protein NEG NEG Urine Glucose (UA) NEG NEG Urine Ketones TRACE NEG Urine Occult Blood NEG NEG Urine Nitrite NEG NEG Urine Bilirubin NEG NEG Urine Urobilinogen NEG NEG Urine Leukocyte Esterase NEG NEG Urine WBC (Auto) 0 0-5 /hpf Urine RBC (Auto) 0-4 0-4 /hpf Urine Hyaline Casts (Auto) 1-5 0-5 /lpf Urine Epithelial Cells (Auto) 0-5 0-5 /lpf Urine Bacteria (Auto) NEG NEG Creatinine 0.83 0.60-1.40 mg/dl Est Creatinine Clear Calc Drug Dose 85.5 ml/min Estimated GFR () 103.3 Estimated GFR (Non- 89.2 Microbiology Results 09/08/17 Gram Stain - Final, Resulted 09/08/17 Bacterial Culture, Resulted Pending
[2017-09-09] MEDS ORDERED: MELATONIN PYRIDOXINE PO PRN (09:30)
[2017-09-09 10:09] LABS: HEMATOCRIT 40.5 % (42-52); MEAN CELL VOLUME 91.4 fL (80-100); MEAN CORPUSCULAR HEMOGLOBIN 31.6 pg (25-34); MEAN CORPUSCULAR HGB CONC 34.6 g/dl (32-36); MEAN PLATELET VOLUME 10.5 fL (7.4-10.4); PLATELET COUNT 212 K/uL (130-400); RED CELL DISTRIBUTION WIDTH CV 13.4 % (11.5-14.5); RED CELL DISTRIBUTION WIDTH SD 44.8 fL (36.4-46.3); WHITE BLOOD COUNT 15.45 K/uL (4.8-10.8)
[2017-09-09] MEDS: CEFEPIME IV 2,000 MG in SYRINGE 7.5 ML IV SCH ×2 (10:12→21:46)
[2017-09-09] MEDS ORDERED: VANCOMYCIN TROUGH ONE (11:30)
[2017-09-09] MEDS: ATORVASTATIN 10 MG TAB PO SCH (11:50)
[2017-09-09] MEDS: LEVOTHYROXINE 125 MCG TAB PO SCH (11:50)
[2017-09-09] MEDS: CEROVITE ADV FORMULA TAB PO SCH (11:50)
[2017-09-09] MEDS: VANCOMYCIN IV 1,250 MG in SODIUM CHLORIDE 0.9% 250ML 250 ML IV SCH ×2 (12:43→19:52)
--- NOTE | 2017-09-09 13:03 | Pharmacy Progress Note ---
Pharmacy Abx Dose Short Note Date of Service Sep 09, 2017. Assessment & Plan Assessment Mr. Hudson's trough came back, 9.2mcg/mL, prior to the 4th maintenance dose. Renal fxn continues to trend upward. Will adjust interval from q12-->q8 set to start @ 199909/09/17. Trough ordered for 09/10/17 @1130 this will be prior to the 3rd maintenance dose. Pharmacy will continue to follow and will adjust dose/frequency as necessary. Thank you.
--- NOTE | 2017-09-09 13:10 | Progress Note ---
Internal Med Progress Note Date of Service: Sep 09, 2017. Provider Documentation: SUBJECTIVE: still has significant swelling and pain of right upper extremity NPO for possible procedure today afebrile no chest pain or sob no nausea ambulating in room ok OBJECTIVE: Vital Signs-as noted below Exam: General-alert and oriented. ENT-Normal hearing Neck-no neck masses Lungs-cta b/l no wheezing no crackles present Heart-S1 and S2 heard regular rate and rhythm no murmurs . Abdomen-Soft bowel sounds present non tender no distension Extremities- erythema, tender and warmth of right upper extremity involving elbow arm and forearm Neuro-alert and awake moves extremities Lab data as noted below. ASSESSMENT & PLAN: This is a 72-year-old male with a past medical history of hypothyroidism, HLD and history of renal stones who presents with worsening right elbow pain and swelling 2 days. RUE cellulitis, possible septic olecranon bursitis: possible sepsis. Presented with fever, tachycardia, leukocytosis Trauma to R elbow ~ 6 weeks ago currently on iv cefepime and iv vanco orthopedics on board continue same for now s/p aspiration of olecranon bursa-await cx possible I and D today continue to monitor Hypothyroidism: on levothyroxine HLD: on statin DVT Ppx: SCDs Code status: FULL per discussion with patient PCP: Courtney DISPOSITION to be determined Vital Signs: Date Time Temp Pulse Resp B/P (MAP) Pulse Ox O2 Delivery O2 Flow Rate FiO2 09/09/17 08:00 Room Air 09/09/17 07:33 36.6 74 18 125/75 (92) 98 Room Air 09/09/17 00:00 Room Air 09/08/17 23:16 36.7 70 18 114/74 (87) 98 Room Air 09/08/17 16:38 38.3 86 18 107/53 (71) 95 Room Air 09/08/17 15:27 98 Room Air Lab Results: Results Past 24 Hours Test 09/09/17 02:10 09/09/17 06:46 09/09/17 06:47 09/09/17 11:42 Range/Units Urine Color YELLOW Urine Appearance CLEAR CLEAR Urine pH 5.0 4.5-7.5 Urine Specific [place] 1.027 1.000-1.030 Urine Protein NEG NEG Urine Glucose (UA) NEG NEG Urine Ketones TRACE NEG Urine Occult Blood NEG NEG Urine Nitrite NEG NEG Urine Bilirubin NEG NEG Urine Urobilinogen NEG NEG Urine Leukocyte Esterase NEG NEG Urine WBC (Auto) 0 0-5 /hpf Urine RBC (Auto) 0-4 0-4 /hpf Urine Hyaline Casts (Auto) 1-5 0-5 /lpf Urine Epithelial Cells (Auto) 0-5 0-5 /lpf Urine Bacteria (Auto) NEG NEG White Blood Count 15.45 4.8-10.8 K/uL Red Blood Count 4.43 4.7-6.1 M/uL Hemoglobin 14.0 14.0-18.0 g/dL Hematocrit 40.5 42-52 % Mean Corpuscular Volume 91.4 80-100 fL Mean Corpuscular Hemoglobin 31.6 25-34 pg Mean Corpuscular Hemoglobin Concent 34.6 32-36 g/dl RDW Standard Deviation 44.8 36.4-46.3 fL RDW Coefficient of Variation 13.4 11.5-14.5 % Platelet Count 212 130-400 K/uL Mean Platelet Volume 10.5 7.4-10.4 fL Creatinine 0.83 0.60-1.40 mg/dl Est Creatinine Clear Calc Drug Dose 85.5 ml/min Estimated GFR () 103.3 Estimated GFR (Non- 89.2 Vancomycin Level Trough 9.5 SEE COMMENT mcg/ml Microbiology Results 09/08/17 Gram Stain - Final, Resulted 09/08/17 Bacterial Culture, Resulted Pending
[2017-09-09] MEDS ORDERED: BACITRACIN 50000 UNIT VIAL ONE (16:10)
[2017-09-09] MEDS ORDERED: VANCOMYCIN HCL 1000MG/20ML VIAL ONE (16:10)
[2017-09-09] MEDS ORDERED: FENTANYL CITRATE INJ 50 MCG/1 ML 2 ML VIAL ONE (16:12)
[2017-09-09] MEDS ORDERED: MIDAZOLAM HCL 1 MG/ML 2ML VIAL ONE (16:12)
[2017-09-09] MEDS ORDERED: PROPOFOL IV EMULSION 10 MG/ML 20 ML VIAL IV ONE (16:12)
[2017-09-09] MEDS ORDERED: SUCCINYLCHOLINE CHLORIDE 20 MG/ML 10 ML VIAL IV ONE (16:12)
[2017-09-09] MEDS ORDERED: DEXAMETHASONE SOD INJ 4 MG/ML VIAL ONE (16:12)
[2017-09-09] MEDS ORDERED: LIDOCAINE HCL 2% 2 ML VIAL (20MG/ML) ONE (16:12)
[2017-09-09] MEDS ORDERED: ONDANSETRON INJ 2 MG/ML 2 ML VIAL ONE (16:12)
[2017-09-09] MEDS ORDERED: HYDROmorphone INJ 0.5 MG/0.5 ML SYR IV PRN (16:30)
[2017-09-09] MEDS ORDERED: ATROPINE SULFATE 0.1 MG/ML 5ML SYR IV PRN (16:30)
[2017-09-09] MEDS ORDERED: ONDANSETRON INJ 2 MG/ML 2 ML VIAL IV PRN (16:30)
[2017-09-09] MEDS ORDERED: EpHEDrine SULFATE INJ 50 MG/ML AMP IV PRN (16:30)
--- NOTE | 2017-09-09 16:53 | History & Physical Bridge Note ---
H&P Re-Evaluation Bridge Note: I have examined the patient, reviewed the History & Physical and in the interval since the performance of the History & Physical I have noted the following changes of clinical significance: No changes noted
[2017-09-09] MEDS ORDERED: MoRPHine SULFATE 2 MG/ML CARP IV PRN (17:45)
[2017-09-09] MEDS: FENTANYL CITRATE INJ 50 MCG/1 ML 2 ML VIAL IV PRN ×4 (18:08→18:25)
[2017-09-09] MEDS ORDERED: MoRPHine SULFATE 4 MG/ML 1 ML CARP\\VIAL IV PRN (18:15)
--- NOTE | 2017-09-09 18:21 | Anesthesiology Progress Note ---
Anesthesia Post Op Note Date & Time Sep 09, 2017 at 18:21 Vital Signs Pain Intensity: 5 Vital Signs Past 12 Hours Date Time Temp Pulse Resp B/P (MAP) Pulse Ox O2 Delivery O2 Flow Rate FiO2 09/09/17 18:15 77 16 132/78 100 Oxymask 10 09/09/17 18:05 70 12 126/69 98 Oxymask 10 09/09/17 17:59 36.2 79 14 137/85 100 Oxymask 10 09/09/17 08:00 Room Air 09/09/17 07:33 36.6 74 18 125/75 (92) 98 Room Air Notes Mental Status: alert / awake / arousable, participated in evaluation Pt Amnestic to Procedure: Yes Nausea / Vomiting: adequately controlled Pain: adequately controlled Airway Patency, RR, SpO2: stable & adequate BP & HR: stable & adequate Hydration State: stable & adequate Anesthetic Complications: no major complications apparent
--- NOTE | 2017-09-09 18:44 | OPERATIVE REPORT ---
DATE OF OPERATION: 09/09/2017 PREOPERATIVE DIAGNOSIS: Septic olecranon bursitis, right elbow. POSTOPERATIVE DIAGNOSIS: Septic olecranon bursitis, right elbow. PROCEDURE: Excisional debridement and culture septic olecranon bursitis, right elbow. SURGEON: Dr. Sharma. ANESTHESIA: General. COMPLICATIONS: None. DESCRIPTION OF PROCEDURE: Following induction of adequate general anesthesia, the patient's right arm was prepped and draped in usual sterile manner. The limb was exsanguinated with elevation only and the tourniquet was inflated to 250 mmHg. A longitudinal incision was made over the olecranon, subcutaneous tissue was sharply dissected, electrocautery was used for hemostasis. An initial washout was carried out using about 100 mL of pulsatile irrigation. Thickened, multiloculated bursal tissue was noted, and upon sharp dissection distally and radially, a pocket of purulence was entered. This was cultured. This was the second set of cultures and initial set prior to irrigation had been done. The second set of cultures was labeled abscess. This was irrigated with pulsatile irrigation and then continued sharp dissection was carried out until all visible and palpable bursal tissue was removed. A final irrigation of 3000 mL of pulsatile irrigation with bacitracin was carried out. The outer set of gloves was removed. The Stimulan beads with vancomycin that we prepared preoperatively were administered and spread throughout the wound. The incision was closed using 3-0 nylon vertical mattress sutures. A sterile dressing of 4 x 4s, ABDs, sterile Webril and 4-inch Philip was applied. The patient was awakened, taken to recovery in stable and good condition. He tolerated the procedure well. I attest to the content of the Intraoperative Record and any orders documented therein. Any exception s are noted below.
[2017-09-09 19:17] VITALS: BP 128/65; PULSE 77; TEMP 36.9; O2SAT 94
[2017-09-09] MEDS ORDERED: DOCUSATE SODIUM 100 MG CAP PO ONE (20:48)
[2017-09-09 20:52] VITALS: BP 124/80; PULSE 78; TEMP 36.7; O2SAT 94
[2017-09-09] MEDS: OXYCODONE HCL IR 5 MG TAB (IMMEDIATE RELEASE) PO PRN (21:54)
[2017-09-09 23:20] VITALS: BP 123/78; PULSE 75; TEMP 36.9; O2SAT 95
[2017-09-10 03:23] VITALS: BP 107/71; PULSE 66; TEMP 36.9; O2SAT 95
[2017-09-10] MEDS: VANCOMYCIN IV 1,250 MG in SODIUM CHLORIDE 0.9% 250ML 250 ML IV SCH ×3 (04:08→20:37)
[2017-09-10] MEDS: LEVOTHYROXINE 125 MCG TAB PO SCH (04:14)
[2017-09-10 05:32] LABS: BASO % 0.1 %; BASO ABS # 0.02 K/uL (0-0.2); EOS % 0.2 %; EOS ABS # 0.03 K/uL (0-0.5); HEMOGLOBIN 13.1 g/dL (14.0-18.0); IG# 0.07 K/uL (0.00-0.02); LYMPH % 7.2 %; LYMPH ABS # 0.97 K/uL (1.2-3.4); MEAN CELL VOLUME 90.5 fL (80-100); MEAN CORPUSCULAR HEMOGLOBIN 31.2 pg (25-34); MEAN CORPUSCULAR HGB CONC 34.5 g/dl (32-36); MEAN PLATELET VOLUME 9.7 fL (7.4-10.4); MONO % 5.9 %; NEUT % 86.1 %; NEUT ABS # 11.66 K/uL (1.4-6.5); PLATELET COUNT 244 K/uL (130-400); RED CELL DISTRIBUTION WIDTH CV 13.2 % (11.5-14.5); RED CELL DISTRIBUTION WIDTH SD 43.4 fL (36.4-46.3); WHITE BLOOD COUNT 13.55 K/uL (4.8-10.8)
[2017-09-10 05:59] LABS: ALBUMIN 2.6 gm/dl (3.4-5.0); CALCIUM 8.6 mg/dl (8.5-10.1); CREATININE 0.65 mg/dl (0.60-1.40); POTASSIUM 4.1 mmol/L (3.5-5.1)
[2017-09-10 06:02] LABS: TOTAL PROTEIN 6.1 gm/dl (6.4-8.2)
--- NOTE | 2017-09-10 06:37 | DIAGNOSTIC IMAGING REPORT ---
CT SCAN OF THE ABDOMEN AND PELVIS WITHOUT CONTRAST CLINICAL HISTORY: flank pain COMPARISON STUDY: 02/21/2017 TECHNIQUE: CT scan of the abdomen and pelvis was performed from the lung bases to the proximal femurs. Images are reviewed in the axial, sagittal, and coronal planes. IV contrast was not administered for this examination. A dose lowering technique was utilized adhering to the principles of ALARA. CT DOSE: 479.96 mGy.cm FINDINGS: Lower chest: There are bibasal atelectatic changes Liver: The unenhanced liver is normal in size, contour, and attenuation. There is no intrahepatic biliary ductal dilatation. Gallbladder: Unremarkable. Spleen: Normal in size and attenuation. Pancreas: Unremarkable. Adrenal glands: Unremarkable. Kidneys: No renal, ureteral, or bladder calculi are visualized. There is a 26 mm right renal cyst. Bowel: There are no transition zones indicate bowel obstruction. Appendix appears normal. There is colonic diverticulosis. There are no acute peridiverticular inflammatory changes. Peritoneum: There is no intraperitoneal free air or abdominal ascites. Vasculature: The abdominal aorta is normal in course and caliber. Adenopathy: None. Pelvic viscera: The prostate is enlarged measuring 71 mm transversely. Skeletal structures: No destructive osseous lesions are seen. IMPRESSION: 1. No evidence of bowel obstruction. No evidence of free air 2. No evidence of acute diverticulitis. No evidence of acute appendicitis. 3. No renal, ureteral, or bladder calculi identified 4. Prostamegaly Electronically signed by: Ghassan Maza M.D. 09/10/2017 6:36 AM Dictated Date/Time: 09/10/2017 6:33 AM
[2017-09-10 07:34] VITALS: BP 115/71; PULSE 62; TEMP 36.7; O2SAT 98
[2017-09-10] MEDS: DOCUSATE SODIUM 100 MG CAP PO SCH (08:11)
[2017-09-10] MEDS: ATORVASTATIN 10 MG TAB PO SCH (08:11)
[2017-09-10] MEDS: CEROVITE ADV FORMULA TAB PO SCH (08:11)
--- NOTE | 2017-09-10 09:59 | Anesthesiology Progress Note ---
Anesthesia Post Op Note Date & Time Sep 10, 2017 at 09:58 Vital Signs Vital Signs Past 12 Hours Date Time Temp Pulse Resp B/P (MAP) Pulse Ox O2 Delivery O2 Flow Rate FiO2 09/10/17 08:00 Room Air 09/10/17 07:34 36.7 62 18 115/71 (86) 98 Room Air 09/10/17 03:23 36.9 66 18 107/71 (83) 95 Room Air 09/10/17 00:00 Room Air 09/09/17 23:20 36.9 75 18 123/78 (93) 95 Room Air Notes Mental Status: alert / awake / arousable, participated in evaluation Pt Amnestic to Procedure: Yes Nausea / Vomiting: adequately controlled Pain: adequately controlled Airway Patency, RR, SpO2: stable & adequate BP & HR: stable & adequate Hydration State: stable & adequate Anesthetic Complications: no major complications apparent
[2017-09-10] MEDS: CEFEPIME IV 2,000 MG in SYRINGE 7.5 ML IV SCH ×2 (10:18→22:51)
[2017-09-10] MEDS ORDERED: VANCOMYCIN TROUGH ONE (11:30)
--- NOTE | 2017-09-10 12:29 | Pharmacy Progress Note ---
Pharmacy Abx Dose Short Note Date of Service Sep 10, 2017. Assessment & Plan Assessment 72 year old male receiving IV Vancomycin for treatment of septic joint (R elbow) Day # 4 of antimicrobial therapy. Plan Vancomycin * Trough level of 17.4 mcg/mL is therapeutic * Continue dose of 1250 mg (15mg/kg) IV every 8 hours * Goal trough level for septic joint : 15 to 20 mcg/mL * Trough level ordered for: 09/12 @ 0330 to ensure level remains within therapeutic range * R elbow abscess growing Staph. aureus. Waiting for sensitivity to determine possible de-escalation. Pharmacy will continue to follow and will adjust dose/frequency as necessary. Thank you.
[2017-09-10 15:00] VITALS: BP 126/78; PULSE 66; TEMP 36.7; O2SAT 97
--- NOTE | 2017-09-10 15:39 | Orthopedic Progress Note ---
Orthopedic Progress Note Date of Service Sep 10, 2017. Subjective Post OP Day: 1 Reports: feeling well Objective N/V intact (Fingers mobile), dressing C/D/I Date Time Temp Pulse Resp B/P (MAP) Pulse Ox O2 Delivery O2 Flow Rate FiO2 09/10/17 15:00 36.7 66 20 126/78 (94) 97 Room Air 09/10/17 08:00 Room Air 09/10/17 07:34 36.7 62 18 115/71 (86) 98 Room Air 09/10/17 03:23 36.9 66 18 107/71 (83) 95 Room Air 09/10/17 00:00 Room Air 09/09/17 23:20 36.9 75 18 123/78 (93) 95 Room Air 09/09/17 20:52 36.7 78 18 124/80 (95) 94 Room Air 09/09/17 20:10 Room Air 09/09/17 19:45 Room Air 09/09/17 19:17 36.9 77 18 128/65 (86) 94 Room Air 09/09/17 18:50 78 16 121/68 94 Room Air 09/09/17 18:35 75 16 118/66 94 Room Air 09/09/17 18:25 37.0 86 18 131/77 95 Room Air 09/09/17 18:15 77 16 132/78 100 Oxymask 10 09/09/17 18:05 70 12 126/69 98 Oxymask 10 09/09/17 17:59 36.2 79 14 137/85 100 Oxymask 10 Laboratory Results 24 Hours: Test 09/10/17 05:19 White Blood Count 13.55 K/uL Red Blood Count 4.20 M/uL Hemoglobin 13.1 g/dL Hematocrit 38.0 % Mean Corpuscular Volume 90.5 fL Mean Corpuscular Hemoglobin 31.2 pg Mean Corpuscular Hemoglobin Concent 34.5 g/dl Platelet Count 244 K/uL Mean Platelet Volume 9.7 fL Neutrophils (%) (Auto) 86.1 % Lymphocytes (%) (Auto) 7.2 % Monocytes (%) (Auto) 5.9 % Eosinophils (%) (Auto) 0.2 % Basophils (%) (Auto) 0.1 % Neutrophils # (Auto) 11.66 K/uL Lymphocytes # (Auto) 0.97 K/uL Monocytes # (Auto) 0.80 K/uL Eosinophils # (Auto) 0.03 K/uL Basophils # (Auto) 0.02 K/uL Additional Notes: Preliminary cultures from OR 09/09 : S Aureus Assessment & Plan Assessment: 72 yo male stable POD #1 s/p I&D septic right olecranon bursa Plan: 1. Med management; cont IV vanco and cefepime 2. D/C planning: await final cultures/sensitivities for appropriate abx
[2017-09-10 16:25] VITALS: O2SAT 98
--- NOTE | 2017-09-10 17:16 | Progress Note ---
Internal Med Progress Note Date of Service: Sep 10, 2017. Provider Documentation: SUBJECTIVE: s/p I and D of the right elbow afebrile' had back pain last night but ok now no chest pain or sob no nausea otherwise doing fine OBJECTIVE: Vital Signs-as noted below Exam: General-alert and oriented. ENT-Normal hearing Neck-no neck masses Lungs-cta b/l no wheezing no crackles present Heart-S1 and S2 heard regular rate and rhythm no murmurs . Abdomen-Soft bowel sounds present non tender no distension Extremities- s/p I and D of right elbow-in dressing Neuro-alert and awake moves extremities Lab data as noted below. ASSESSMENT & PLAN: This is a 72-year-old male with a past medical history of hypothyroidism, HLD and history of renal stones who presents with worsening right elbow pain and swelling 2 days. RUE cellulitis, possible septic olecranon bursitis: possible sepsis. Presented with fever, tachycardia, leukocytosis Trauma to R elbow ~ 6 weeks ago currently on iv cefepime and iv vanco orthopedics on board continue same for now s/p aspiration of olecranon bursa-await cx possible I and D 09/09/17 initial cx staph To continue current abx Hypothyroidism: on levothyroxine HLD: on statin DVT Ppx: SCDs Code status: FULL per discussion with patient PCP: Courtney DISPOSITION possible d/c in 1-2 days Vital Signs: Date Time Temp Pulse Resp B/P (MAP) Pulse Ox O2 Delivery O2 Flow Rate FiO2 09/10/17 16:25 98 Room Air 09/10/17 15:00 36.7 66 20 126/78 (94) 97 Room Air 09/10/17 08:00 Room Air 09/10/17 07:34 36.7 62 18 115/71 (86) 98 Room Air 09/10/17 03:23 36.9 66 18 107/71 (83) 95 Room Air 09/10/17 00:00 Room Air 09/09/17 23:20 36.9 75 18 123/78 (93) 95 Room Air 09/09/17 20:52 36.7 78 18 124/80 (95) 94 Room Air 09/09/17 20:10 Room Air 09/09/17 19:45 Room Air 09/09/17 19:17 36.9 77 18 128/65 (86) 94 Room Air 09/09/17 18:50 78 16 121/68 94 Room Air 09/09/17 18:35 75 16 118/66 94 Room Air 09/09/17 18:25 37.0 86 18 131/77 95 Room Air 09/09/17 18:15 77 16 132/78 100 Oxymask 10 09/09/17 18:05 70 12 126/69 98 Oxymask 10 09/09/17 17:59 36.2 79 14 137/85 100 Oxymask 10 Lab Results: Results Past 24 Hours Test 09/10/17 05:19 09/10/17 05:30 09/10/17 11:22 Range/Units White Blood Count 13.55 4.8-10.8 K/uL Red Blood Count 4.20 4.7-6.1 M/uL Hemoglobin 13.1 14.0-18.0 g/dL Hematocrit 38.0 42-52 % Mean Corpuscular Volume 90.5 80-100 fL Mean Corpuscular Hemoglobin 31.2 25-34 pg Mean Corpuscular Hemoglobin Concent 34.5 32-36 g/dl Platelet Count 244 130-400 K/uL Mean Platelet Volume 9.7 7.4-10.4 fL Neutrophils (%) (Auto) 86.1 % Lymphocytes (%) (Auto) 7.2 % Monocytes (%) (Auto) 5.9 % Eosinophils (%) (Auto) 0.2 % Basophils (%) (Auto) 0.1 % Neutrophils # (Auto) 11.66 1.4-6.5 K/uL Lymphocytes # (Auto) 0.97 1.2-3.4 K/uL Monocytes # (Auto) 0.80 0.11-0.59 K/uL Eosinophils # (Auto) 0.03 0-0.5 K/uL Basophils # (Auto) 0.02 0-0.2 K/uL RDW Standard Deviation 43.4 36.4-46.3 fL RDW Coefficient of Variation 13.2 11.5-14.5 % Immature Granulocyte % (Auto) 0.5 % Immature Granulocyte # (Auto) 0.07 0.00-0.02 K/uL Sodium Level 138 136-145 mmol/L Potassium Level 4.1 3.5-5.1 mmol/L Chloride Level 107 98-107 mmol/L Carbon Dioxide Level 25 21-32 mmol/L Anion Gap 6.0 3-11 mmol/L Blood Urea Nitrogen 14 7-18 mg/dl Creatinine 0.65 0.60-1.40 mg/dl Est Creatinine Clear Calc Drug Dose 109.2 ml/min Estimated GFR () 114.2 Estimated GFR (Non- 98.6 BUN/Creatinine Ratio 21.5 10-20 Random Glucose 100 70-99 mg/dl Calcium Level 8.6 8.5-10.1 mg/dl Magnesium Level 2.2 1.8-2.4 mg/dl Total Bilirubin 0.5 0.2-1 mg/dl Aspartate Amino Transf (AST/SGOT) 11 15-37 U/L Alanine Aminotransferase (ALT/SGPT) 17 12-78 U/L Alkaline Phosphatase 59 45-117 U/L Total Protein 6.1 6.4-8.2 gm/dl Albumin 2.6 3.4-5.0 gm/dl Globulin 3.5 2.5-4.0 gm/dl Albumin/Globulin Ratio 0.7 0.9-2 Lipase 146 73-393 U/L Urine Color YELLOW Urine Appearance CLEAR CLEAR Urine pH 5.0 4.5-7.5 Urine Specific [place] 1.022 1.000-1.030 Urine Protein NEG NEG Urine Glucose (UA) NEG NEG Urine Ketones NEG NEG Urine Occult Blood NEG NEG Urine Nitrite NEG NEG Urine Bilirubin NEG NEG Urine Urobilinogen NEG NEG Urine Leukocyte Esterase NEG NEG Vancomycin Level Trough 17.4 SEE COMMENT mcg/ml Microbiology Results 09/09/17 Gram Stain - Final, Resulted 09/09/17 Bacterial Culture - Preliminary, Resulted NO GROWTH TO DATE. 09/09/17 Gram Stain - Final, Resulted 09/09/17 Bacterial Culture - Preliminary, Resulted Staphylococcus Aureus
[2017-09-11 00:27] VITALS: BP 122/78; PULSE 73; TEMP 36.8; O2SAT 95
[2017-09-11] MEDS: VANCOMYCIN IV 1,250 MG in SODIUM CHLORIDE 0.9% 250ML 250 ML IV SCH (03:48)
[2017-09-11] MEDS: LEVOTHYROXINE 125 MCG TAB PO SCH (03:48)
[2017-09-11] MEDS: OXYCODONE HCL IR 5 MG TAB (IMMEDIATE RELEASE) PO PRN (03:53)
[2017-09-11 06:35] LABS: BASO % 0.6 %; BASO ABS # 0.06 K/uL (0-0.2); EOS % 2.3 %; EOS ABS # 0.24 K/uL (0-0.5); HEMATOCRIT 38.6 % (42-52); HEMOGLOBIN 13.4 g/dL (14.0-18.0); IG# 0.21 K/uL (0.00-0.02); LYMPH % 15.3 %; MEAN CELL VOLUME 90.4 fL (80-100); MEAN CORPUSCULAR HEMOGLOBIN 31.4 pg (25-34); MEAN CORPUSCULAR HGB CONC 34.7 g/dl (32-36); MEAN PLATELET VOLUME 9.5 fL (7.4-10.4); MONO % 10.8 %; MONO ABS # 1.13 K/uL (0.11-0.59); PLATELET COUNT 271 K/uL (130-400); RED CELL DISTRIBUTION WIDTH CV 13.3 % (11.5-14.5); WHITE BLOOD COUNT 10.44 K/uL (4.8-10.8)
[2017-09-11 07:12] LABS: CALCIUM 8.5 mg/dl (8.5-10.1); CREATININE 0.73 mg/dl (0.60-1.40); POTASSIUM 3.9 mmol/L (3.5-5.1)
[2017-09-11 07:19] VITALS: BP 124/82; PULSE 66; TEMP 36.8; O2SAT 97
[2017-09-11 08:00] VITALS: O2SAT 97
--- NOTE | 2017-09-11 08:30 | Orthopedic Progress Note ---
Orthopedic Progress Note Date of Service Sep 11, 2017. Subjective Post OP Day: 2 Reports: feeling well Objective N/V intact, incision C/D/I (Dressing changed, mild bloody drainage, no signicant erythema) Date Time Temp Pulse Resp B/P (MAP) Pulse Ox O2 Delivery O2 Flow Rate FiO2 09/11/17 07:19 36.8 66 18 124/82 (96) 97 Room Air 09/11/17 00:27 36.8 73 17 122/78 (93) 95 Room Air 09/11/17 00:00 Room Air 09/10/17 16:25 98 Room Air 09/10/17 15:00 36.7 66 20 126/78 (94) 97 Room Air Laboratory Results 24 Hours: Test 09/11/17 05:56 White Blood Count 10.44 K/uL Red Blood Count 4.27 M/uL Hemoglobin 13.4 g/dL Hematocrit 38.6 % Mean Corpuscular Volume 90.4 fL Mean Corpuscular Hemoglobin 31.4 pg Mean Corpuscular Hemoglobin Concent 34.7 g/dl Platelet Count 271 K/uL Mean Platelet Volume 9.5 fL Neutrophils (%) (Auto) 69.0 % Lymphocytes (%) (Auto) 15.3 % Monocytes (%) (Auto) 10.8 % Eosinophils (%) (Auto) 2.3 % Basophils (%) (Auto) 0.6 % Neutrophils # (Auto) 7.20 K/uL Lymphocytes # (Auto) 1.60 K/uL Monocytes # (Auto) 1.13 K/uL Eosinophils # (Auto) 0.24 K/uL Basophils # (Auto) 0.06 K/uL Additional Notes: Cultures: MRSA Assessment & Plan Assessment: 72 yo male stable POD #2 s/p I&D septic right olecranon bursa, MRSA on culture Plan: 1. Med management; cont IV vanco and cefepime, consider PICC line and ID consult 2. D/C planning: when decision made regarding PICC line and IV abx
[2017-09-11] MEDS: ATORVASTATIN 10 MG TAB PO SCH (09:13)
[2017-09-11] MEDS: CEROVITE ADV FORMULA TAB PO SCH (09:13)
[2017-09-11] MEDS: DOCUSATE SODIUM 100 MG CAP PO SCH (09:13)
[2017-09-11] MEDS ORDERED: DAPTOMYCIN CONSULT ACTIVE PRN (09:45)
[2017-09-11] MEDS: DAPTOmycin IV 450 MG in SYRINGE 0 ML IV SCH (10:14)
--- NOTE | 2017-09-11 10:33 | Medical Consult ---
Consultation Date of Consultation: Sep 11, 2017. Attending Physician: Cedric Ortiz MD Reason for Consultation: Septic olecranon bursitis History of Present Illness 72-year-old male with history of hyperlipidemia, hypothyroidism, DJD, otherwise in good health, was well until approximately 5-6 weeks prior to admission when he fell hitting his right elbow. Over the next several weeks, noted some intermittent swelling, but did not seek care until 2 days prior to admission when he had abrupt onset of progressively worsening swelling, redness, and pain associated with fever and chills. He was found to have evidence of septic olecranon bursitis, and has now undergone surgical debridement. Operative cultures now growing MRSA. Patient has been treated with vancomycin and Zosyn. Blood cultures have been negative. Patient feeling significantly better, fever has resolved. Has been tolerating antibiotics without apparent difficulty. Past Medical/Surgical History Medical Problems: (1) Cellulitis of right elbow Status: Acute (2) Kidney stone Status: Acute (3) Olecranon bursitis Status: Acute (4) Renal colic Status: Acute (5) Right flank pain Status: Acute (6) Sepsis Status: Acute Medical Problems: (1) DJD (degenerative joint disease) of knee (2) HLD (hyperlipidemia) (3) Hypothyroidism (4) Renal colic Surgical Problems: (1) History of total bilateral knee replacement Family History FH: CHF (congestive heart failure) SISTER FH: HTN (hypertension) BROTHER SISTER No significant history FATHER MOTHER Social History Smoking Status: Never Smoker Alcohol Use: socially (2 drinks every evening (wine) ) Marital Status: single, Housing Status: lives with family Occupation Status: retired Allergies Coded Allergies: No Known Allergies (Unverified , 09/07/17) Current Inpatient Medications Current Inpatient Medications Medications (Trade) Dose Ordered Sig/Yasmine Route Start Time Stop Time Status Last Admin Dose Admin Acetaminophen (Tylenol Tab) 650 mg Q4H PRN PO 09/07/17 14:45 10/07/17 14:44 09/08/17 15:45 650 MG Atorvastatin Calcium (Lipitor Tab) 10 mg QAM PO 09/09/17 11:00 10/09/17 10:59 Future Hold 09/11/17 09:13 10 MG Levothyroxine Sodium (Synthroid Tab) 125 mcg DAILYBB PO 09/09/17 11:00 10/09/17 10:59 09/11/17 03:48 125 MCG Multivitamins/ Minerals (Multivitamin W/ Minerals Tab) 1 tab QAM PO 09/09/17 11:00 10/09/17 10:59 09/11/17 09:13 1 TAB Oxycodone HCl (Roxicodone Immediate Rel Tab) `1-2 tabs for pain 1 tab ... Q6H PRN PO 09/09/17 17:45 09/23/17 17:44 09/11/17 03:53 5 MG Morphine Sulfate (MoRPHine SULFATE INJ) 2 mg Q2HWA PRN IV 09/09/17 17:45 09/23/17 17:44 Morphine Sulfate (MoRPHine SULFATE INJ) 4 mg Q2HWA PRN IV 09/09/17 18:15 09/23/17 18:14 Docusate Sodium (coLACE CAP) 100 mg DAILY PO 09/10/17 08:00 10/10/17 07:59 09/11/17 09:13 100 MG Daptomycin (Consult) 1 ea UD PRN N/A 09/11/17 09:45 10/11/17 09:44 Daptomycin 450 mg/ Syringe 9 ml @ 4.5 mls/min Q24H IV 09/11/17 10:00 10/23/17 09:59 09/11/17 10:14 4.5 MLS/MIN Review of Systems All systems were reviewed and are negative except as per HPI Physical Exam Date Time Temp Pulse Resp B/P (MAP) Pulse Ox O2 Delivery O2 Flow Rate FiO2 09/11/17 07:19 36.8 66 18 124/82 (96) 97 Room Air 09/11/17 00:27 36.8 73 17 122/78 (93) 95 Room Air 09/11/17 00:00 Room Air 09/10/17 16:25 98 Room Air 09/10/17 15:00 36.7 66 20 126/78 (94) 97 Room Air General Appearance: WD/WN, no apparent distress Head: normocephalic, atraumatic Eyes: normal inspection, EOMI, sclerae normal ENT: normal ENT inspection, hearing grossly normal, pharynx normal Neck: supple, no adenopathy, thyroid normal, trachea midline Respiratory/Chest: chest non-tender, lungs clear, normal breath sounds, no respiratory distress Cardiovascular: regular rate, rhythm, no gallop, no murmur Abdomen/GI: normal bowel sounds, non tender, soft, no organomegaly Back: normal inspection, no CVA tenderness Extremities/Musculoskelatal: no calf tenderness, normal capillary refill, pelvis stable Neurologic/Psych: alert, normal mood/affect, oriented x 3 Skin: normal color, warm/dry, no rash, + pertinent finding (Surgical dressing intact, erythema of arm improved) Lymphatic: no adenopathy Laboratory Results RUN DATE: 09/11/17 [facility] LAB PAGE 1 RUN TIME: 945 Specimen Inquiry PATIENT: EZEKIEL OTERO LOC: [id number] U # : [id number] AGE/SX: 72/M ROOM: [facility] REG : 09/07/[address]: Cedric Ortiz MD : 1945 BED: 1 DIS : STATUS: ADM IN TLOC: SPEC #: [id number] DWIGHT: 09/09/17 STATUS: RES REQ #: [id number] RECD: 09/09/[address]: Cedric Ortiz MD SOURCE: ABSCESS ENTR: 09/09/[address] [facility] [address]: Arnulfo Valdez M.D. [facility]: Alexandro Solis MD Schreckengost, Janea ., Calvin Enamorado MD ORDERED: AER/CHAZ CULTSMR COMMENTS: CULTURE #2 Procedure Result Verified Site GRAM STAIN Final 09/10/17-1105 RESULT MANY WBCs SEEN FEW GRAM POSITIVE COCCI OR AER/CHAZ CULT Preliminary 09/11/17-0946 Organism 1 STAPH. AUREUS MRSA QUANITY FEW SENS SENSITIVITY TO FOLLOW SENSITIVITY RESULT INDICATES A METHICILLIN RESISTANT STAPH. AUREUS. PHONED TO RACHEL JEWELL ON 09/11/17 AT 0724 BY Amrit Mackenzie. Results were verbalized back to HAROLDO. RESULTS WERE ALSO CALLED TO [facility] CONTROL ANSWERING MACHINE ON 09/11/17 BY HAROLDO. 1. STAPH. AUREUS MRSA Target Route Dose RX AB Cost M.I.C. IQ ------ ----- ------ -- ------ -------- - ------ TRIMET/SULFA S <=0.5/ 9.5 * OXACILLIN R >2 VANCOMYCIN S 2 ERYTHROMYCIN R >4 TETRACYCLINE S <=4 CLINDAMYCIN S <=0.5 DAPTOMYCIN S <=0.5 RIFAMPIN S <=1 S = SENSITIVE I = INTERMEDIATE R = RESISTANT END OF REPORT Last 24 Hours Test 09/10/17 11:22 09/11/17 05:56 Vancomycin Level Trough 17.4 mcg/ml White Blood Count 10.44 K/uL Red Blood Count 4.27 M/uL Hemoglobin 13.4 g/dL Hematocrit 38.6 % Mean Corpuscular Volume 90.4 fL Mean Corpuscular Hemoglobin 31.4 pg Mean Corpuscular Hemoglobin Concent 34.7 g/dl Platelet Count 271 K/uL Mean Platelet Volume 9.5 fL Neutrophils (%) (Auto) 69.0 % Lymphocytes (%) (Auto) 15.3 % Monocytes (%) (Auto) 10.8 % Eosinophils (%) (Auto) 2.3 % Basophils (%) (Auto) 0.6 % Neutrophils # (Auto) 7.20 K/uL Lymphocytes # (Auto) 1.60 K/uL Monocytes # (Auto) 1.13 K/uL Eosinophils # (Auto) 0.24 K/uL Basophils # (Auto) 0.06 K/uL RDW Standard Deviation 44.0 fL RDW Coefficient of Variation 13.3 % Immature Granulocyte % (Auto) 2.0 % Immature Granulocyte # (Auto) 0.21 K/uL Sodium Level 139 mmol/L Potassium Level 3.9 mmol/L Chloride Level 106 mmol/L Carbon Dioxide Level 27 mmol/L Anion Gap 6.0 mmol/L Blood Urea Nitrogen 11 mg/dl Creatinine 0.73 mg/dl Est Creatinine Clear Calc Drug Dose 97.2 ml/min Estimated GFR () 108.9 Estimated GFR (Non- 94.0 BUN/Creatinine Ratio 15.2 Random Glucose 88 mg/dl Calcium Level 8.5 mg/dl Magnesium Level 2.1 mg/dl Assessment & Plan 72-year-old male with septic right olecranon bursitis with MRSA now status post incision and drainage. Would recommend 1 week of IV daptomycin followed by 1-2 weeks of oral Bactrim. Case discussed with Orthopedics. Will follow.
[2017-09-11] MEDS: ACETAMINOPHEN 325 MG TAB PO PRN (15:04)
[2017-09-11 15:16] VITALS: BP 148/85; PULSE 73; TEMP 37; O2SAT 95
[2017-09-11 16:00] VITALS: O2SAT 97
--- NOTE | 2017-09-11 16:58 | Progress Note ---
Internal Med Progress Note Date of Service: Sep 11, 2017. Provider Documentation: SUBJECTIVE: s/p I and D of the right elbow erythema of right upper ext much improved afebrile ambulating fine has some back pain on and off no sob OBJECTIVE: Vital Signs-as noted below Exam: General-alert and oriented. ENT-Normal hearing Neck-no neck masses Lungs-cta b/l no wheezing no crackles present Heart-S1 and S2 heard regular rate and rhythm no murmurs . Abdomen-Soft bowel sounds present non tender no distension Extremities- s/p I and D of right elbow-in dressing Neuro-alert and awake moves extremities Lab data as noted below. ASSESSMENT & PLAN: This is a 72-year-old male with a past medical history of hypothyroidism, HLD and history of renal stones who presents with worsening right elbow pain and swelling 2 days. RUE cellulitis, possible septic olecranon bursitis: possible sepsis. Presented with fever, tachycardia, leukocytosis Trauma to R elbow ~ 6 weeks ago was on iv cefepime and iv vanco orthopedics on board continue same for now s/p aspiration of olecranon bursa-await cx possible I and D 09/09/17 cx mrsa plan for one week of iv abx and then po abx for 1-2 weeks as per ID plan for picc line abx changed to iv daptomycin Hypothyroidism: on levothyroxine HLD: on statin DVT Ppx: SCDs Code status: FULL per discussion with patient PCP: Courtney DISPOSITION possible d/c in am Vital Signs: Date Time Temp Pulse Resp B/P (MAP) Pulse Ox O2 Delivery O2 Flow Rate FiO2 09/11/17 15:16 37.0 73 18 148/85 (106) 95 Room Air 09/11/17 08:00 97 Room Air 09/11/17 07:19 36.8 66 18 124/82 (96) 97 Room Air 09/11/17 00:27 36.8 73 17 122/78 (93) 95 Room Air 09/11/17 00:00 Room Air Lab Results: Results Past 24 Hours Test 09/11/17 05:56 Range/Units White Blood Count 10.44 4.8-10.8 K/uL Red Blood Count 4.27 4.7-6.1 M/uL Hemoglobin 13.4 14.0-18.0 g/dL Hematocrit 38.6 42-52 % Mean Corpuscular Volume 90.4 80-100 fL Mean Corpuscular Hemoglobin 31.4 25-34 pg Mean Corpuscular Hemoglobin Concent 34.7 32-36 g/dl Platelet Count 271 130-400 K/uL Mean Platelet Volume 9.5 7.4-10.4 fL Neutrophils (%) (Auto) 69.0 % Lymphocytes (%) (Auto) 15.3 % Monocytes (%) (Auto) 10.8 % Eosinophils (%) (Auto) 2.3 % Basophils (%) (Auto) 0.6 % Neutrophils # (Auto) 7.20 1.4-6.5 K/uL Lymphocytes # (Auto) 1.60 1.2-3.4 K/uL Monocytes # (Auto) 1.13 0.11-0.59 K/uL Eosinophils # (Auto) 0.24 0-0.5 K/uL Basophils # (Auto) 0.06 0-0.2 K/uL RDW Standard Deviation 44.0 36.4-46.3 fL RDW Coefficient of Variation 13.3 11.5-14.5 % Immature Granulocyte % (Auto) 2.0 % Immature Granulocyte # (Auto) 0.21 0.00-0.02 K/uL Sodium Level 139 136-145 mmol/L Potassium Level 3.9 3.5-5.1 mmol/L Chloride Level 106 98-107 mmol/L Carbon Dioxide Level 27 21-32 mmol/L Anion Gap 6.0 3-11 mmol/L Blood Urea Nitrogen 11 7-18 mg/dl Creatinine 0.73 0.60-1.40 mg/dl Est Creatinine Clear Calc Drug Dose 97.2 ml/min Estimated GFR () 108.9 Estimated GFR (Non- 94.0 BUN/Creatinine Ratio 15.2 10-20 Random Glucose 88 70-99 mg/dl Calcium Level 8.5 8.5-10.1 mg/dl Magnesium Level 2.1 1.8-2.4 mg/dl
[2017-09-11 22:23] VITALS: BP 144/86; PULSE 64; TEMP 36.8; O2SAT 95
[2017-09-12] MEDS ORDERED: VANCOMYCIN TROUGH ONE (03:30)
[2017-09-12] MEDS: LEVOTHYROXINE 125 MCG TAB PO SCH (06:24)
[2017-09-12 06:25] LABS: HEMATOCRIT 41.2 % (42-52); HEMOGLOBIN 14.2 g/dL (14.0-18.0); MEAN CELL VOLUME 90.4 fL (80-100); MEAN CORPUSCULAR HEMOGLOBIN 31.1 pg (25-34); MEAN CORPUSCULAR HGB CONC 34.5 g/dl (32-36); MEAN PLATELET VOLUME 9.8 fL (7.4-10.4); PLATELET COUNT 253 K/uL (130-400); RED CELL DISTRIBUTION WIDTH CV 13.2 % (11.5-14.5); RED CELL DISTRIBUTION WIDTH SD 43.5 fL (36.4-46.3); WHITE BLOOD COUNT 10.38 K/uL (4.8-10.8)
[2017-09-12 06:51] LABS: CALCIUM 9.1 mg/dl (8.5-10.1); CREATININE 0.77 mg/dl (0.60-1.40)
[2017-09-12 07:11] VITALS: BP 142/86; PULSE 72; TEMP 36.8; O2SAT 95
[2017-09-12 08:00] VITALS: O2SAT 95
[2017-09-12] MEDS ORDERED: DAPTOmycin IV 350 MG in SODIUM CHLORIDE 0.9% 50ML 50 ML IV SCH (08:00)
[2017-09-12] MEDS: CEROVITE ADV FORMULA TAB PO SCH (08:37)
[2017-09-12] MEDS: DOCUSATE SODIUM 100 MG CAP PO SCH (08:37)
--- NOTE | 2017-09-12 09:36 | Orthopedic Progress Note ---
Orthopedic Progress Note Date of Service Sep 12, 2017. Subjective Post OP Day: 3 Reports: feeling well Objective N/V intact, incision C/D/I (Minimal bloody drainage) Date Time Temp Pulse Resp B/P (MAP) Pulse Ox O2 Delivery O2 Flow Rate FiO2 09/12/17 07:11 36.8 72 18 142/86 (104) 95 Room Air 09/12/17 00:00 Room Air 09/11/17 22:23 36.8 64 18 144/86 (105) 95 Room Air 09/11/17 20:00 Room Air 09/11/17 16:00 97 Room Air 09/11/17 15:16 37.0 73 18 148/85 (106) 95 Room Air Laboratory Results 24 Hours: Test 09/12/17 05:41 White Blood Count 10.38 K/uL Red Blood Count 4.56 M/uL Hemoglobin 14.2 g/dL Hematocrit 41.2 % Mean Corpuscular Volume 90.4 fL Mean Corpuscular Hemoglobin 31.1 pg Mean Corpuscular Hemoglobin Concent 34.5 g/dl Platelet Count 253 K/uL Mean Platelet Volume 9.8 fL Assessment & Plan Assessment: 72 yo male stable POD #3 s/p I&D septic right olecranon bursa, MRSA on culture, abx changed to Dapto, PICC line in place Plan: 1. Med management 2. D/C planning: d/c when has arranged home/outpt IV abx
--- NOTE | 2017-09-12 09:39 | Consultant Recommendations ---
Golf Professional Recommendations Date of Service Sep 12, 2017. Golf Professional Recommendations Range of motion as tolerated right elbow. Clean, dry dressing as needed. Wound may be left uncovered when dry. Pt may remove dressing to shower. Ice to elbow as needed for discomfort. Follow-up with Dr Sharma ~ 10-14 days, call [phone] for appt.
[2017-09-12] MEDS: DAPTOmycin IV 450 MG in SYRINGE 0 ML IV SCH (10:32)
[2017-09-12] MEDS ORDERED: SULF800T23 PO (15:15)
[2017-09-12] MEDS ORDERED: DAPT500I IV (15:15)
[2017-09-12] MEDS ORDERED: LACTCAP3 PO (15:15)
--- NOTE | 2017-09-12 15:19 | Discharge Instructions ---
Discharge Instructions Date of Service Sep 12, 2017. Admission Reason for Admission: Cellulitis Of Right Elbow Discharge Discharge Diagnosis / Problem: Rt septic olecranon bursitis Discharge Goals Goal(s): Decrease discomfort, Improve function Activity Recommendations Activity Limitations: resume your previous activity . Instructions / Follow-Up Instructions / Follow-Up FOLLOWUP WITH FAMILY DOCTOR SCHEDULED IN ONE WEEK FOLLOWUP WITH ORTHOPEDICS Dr Sharma ~ 10-14 days, call [phone] for appt. TO START TAKING ORAL ANTIBIOTIC BACTRIM ONE TAB TWICE DAILY FOR 10 TO 14 DAYS AFTER COMPLETING IV ANTIBIOTIC COURSE TO HOLD LIPITOR WHILE ON IV ANTIBIOTIC AND RESUME USUAL HOME DOSE AFTER COMPLETION OF IV ANTIBIOTIC COURSE. ORTHOPEDICS RECOMMENDATIONS: Range of motion as tolerated right elbow. Clean, dry dressing as needed. Wound may be left uncovered when dry. Pt may remove dressing to shower. Ice to elbow as needed for discomfort. Follow-up with Dr Sharma ~ 10-14 days, call [phone] for appt. Current Hospital Diet Patient's current hospital diet: AHA Diet (Heart Healthy) Discharge Diet Recommended Diet: AHA Diet (Heart Healthy) Procedures Procedures Performed: Incision and Drainage Right Olecranon Bursitis, Implantation of Stimulan beads Pending Studies Studies pending at discharge: no Medical Emergencies . Who to Call and When: Medical Emergencies: If at any time you feel your situation is an emergency, please call 911 immediately. . Non-Emergent Contact Non-Emergency issues call your: Primary Care Provider . . "Provider Documentation" section prepared by Cedric Ortiz. . Pipe Cleaner Recommendations Pipe Cleaner Recommendations: Range of motion as tolerated right elbow. Clean, dry dressing as needed. Wound may be left uncovered when dry. Pt may remove dressing to shower. Ice to elbow as needed for discomfort. Follow-up with Dr Sharma ~ 10-14 days, call [phone] for appt.
[2017-09-12 15:46] VITALS: BP 142/86; PULSE 72; TEMP 36.8; O2SAT 95
--- NOTE | 2017-09-12 18:42 | Progress Note ---
Internal Med Progress Note Date of Service: Sep 12, 2017. Provider Documentation: SUBJECTIVE: s/p I and D of the right elbow erythema of right upper ext much improved no chest pain or sob ambulating fine ok for discharge OBJECTIVE: Vital Signs-as noted below Exam: General-alert and oriented. ENT-Normal hearing Neck-no neck masses Lungs-cta b/l no wheezing no crackles present Heart-S1 and S2 heard regular rate and rhythm no murmurs . Abdomen-Soft bowel sounds present non tender no distension Extremities- s/p I and D of right elbow-in dressing Neuro-alert and awake moves extremities Lab data as noted below. ASSESSMENT & PLAN: This is a 72-year-old male with a past medical history of hypothyroidism, HLD and history of renal stones who presents with worsening right elbow pain and swelling 2 days. RUE cellulitis, possible septic olecranon bursitis: possible sepsis. Presented with fever, tachycardia, leukocytosis Trauma to R elbow ~ 6 weeks ago was on iv cefepime and iv vanco orthopedics on board continue same for now s/p aspiration of olecranon bursa-await cx possible I and D 09/09/17 cx mrsa s/p picc line abx changed to iv daptomycin to give one week from day of surgery then po Bactrim for 1-2 weeks per ID Hypothyroidism: on levothyroxine HLD: to hold statin while on daptomycin discharged home Vital Signs: Date Time Temp Pulse Resp B/P (MAP) Pulse Ox O2 Delivery O2 Flow Rate FiO2 09/12/17 15:46 36.8 72 18 95 Room Air 09/12/17 08:00 95 Room Air 09/12/17 07:11 36.8 72 18 142/86 (104) 95 Room Air 09/12/17 00:00 Room Air 09/11/17 22:23 36.8 64 18 144/86 (105) 95 Room Air 09/11/17 20:00 Room Air Lab Results: Results Past 24 Hours Test 09/12/17 05:41 09/12/17 05:51 Range/Units White Blood Count 10.38 4.8-10.8 K/uL Red Blood Count 4.56 4.7-6.1 M/uL Hemoglobin 14.2 14.0-18.0 g/dL Hematocrit 41.2 42-52 % Mean Corpuscular Volume 90.4 80-100 fL Mean Corpuscular Hemoglobin 31.1 25-34 pg Mean Corpuscular Hemoglobin Concent 34.5 32-36 g/dl Platelet Count 253 130-400 K/uL Mean Platelet Volume 9.8 7.4-10.4 fL RDW Standard Deviation 43.5 36.4-46.3 fL RDW Coefficient of Variation 13.2 11.5-14.5 % Neutrophils % (Manual) 67.8 % Lymphocytes % (Manual) 15.7 % Monocytes % (Manual) 9.6 % Eosinophils % (Manual) 1.7 % Metamyelocytes % 1.7 % Myelocytes % 3.5 % Neutrophils # (Manual) 7.04 1.4-6.5 K/uL Total Absolute Neutrophils 7.04 1.4-6.5 K/uL Lymphocytes # (Manual) 1.63 1.2-3.4 K/uL Total Absolute Lymphocytes 1.63 1.2-3.4 K/uL Monocytes # (Manual) 1.00 0.11-0.59 K/uL Eosinophils # (Manual) 0.18 0-0.5 K/uL Metamyelocytes # 0.18 0-0 K/uL Myelocytes # 0.36 0-0 K/uL Red Blood Cell Morphology Unremarkable Sodium Level 137 136-145 mmol/L Potassium Level 4.0 3.5-5.1 mmol/L Chloride Level 104 98-107 mmol/L Carbon Dioxide Level 27 21-32 mmol/L Anion Gap 7.0 3-11 mmol/L Blood Urea Nitrogen 11 7-18 mg/dl Creatinine 0.77 0.60-1.40 mg/dl Est Creatinine Clear Calc Drug Dose 92.2 ml/min Estimated GFR () 106.6 Estimated GFR (Non- 91.9 BUN/Creatinine Ratio 13.9 10-20 Random Glucose 92 70-99 mg/dl Calcium Level 9.1 8.5-10.1 mg/dl Magnesium Level 2.1 1.8-2.4 mg/dl
--- NOTE | 2017-09-12 18:45 | Discharge Summary ---
Discharge Summary Date of Service Sep 12, 2017. 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 No acute cardiopulmonary disease. ELBOW XRAY: 1. No acute fracture or joint effusion of the right elbow. 2. No radiographic evidence of osteomyelitis. 3. Diffuse right elbow soft tissue swelling, most pronounced overlying the olecranon. CT ABD/PELVIS: 1. No evidence of bowel obstruction. No evidence of free air 2. No evidence of acute diverticulitis. No evidence of acute appendicitis. 3. No renal, ureteral, or bladder calculi identified 4. Prostamegaly Consultations: ORTHO ID Medication Reconciliation New Medications: Daptomycin (Daptomycin) 500 Mg Inj 450 MG IV DAILY for 4 Days Lactobacillus (Acidophilus) 1 Cap Cap 2 CAP PO BID for 20 Days Sulfamethoxazole-Trimethoprim (Bactrim Ds 800MG/160MG) 1 Tab Tab 1 TAB PO BID for 14 Days, #28 TAB Continued Medications: Aspirin (Aspirin Chewable) 81 Mg Chew 81 MG PO QAM Atorvastatin (Lipitor) 10 Mg Tab 10 MG PO QAM Levothyroxine Sodium (Levothyroxine Sodium) 125 Mcg Tab 125 MCG PO QAM Melatonin-Pyridoxine (Melatonin) 1 Tab Tab 200 MCG PO HS PRN for Sleep Multivitamins/Minerals (Mvi With Minerals) Tab 1 TAB PO QAM Admission Information HPI (per Admitting provider): This is a 72-year-old male with a past medical history of hypothyroidism, HLD and history of renal stones who presents with worsening right elbow pain and swelling 2 days. Patient was carrying plywood up a flight of stairs ~6 weeks ago when he lost his balance and fell into the wall, hitting his elbow. Has experienced pain and tenderness since then but has been able to continue daily routine including working on his house, so was not too concerned. Started to notice some redness to his elbow earlier this week but as of 2 days ago, redness had spread down the forearm with associated warmth. Went running this morning and once he returned, he felt unable to get warm. Was seen by PCP and had a low grade fever ~100 degree F and was sent over to the ED with concern for septic joint. Patient denies any lightheadedness, visual changes, confusion , chest pain, shortness of breath, abdominal pain, nausea, vomiting, bowel or bladder changes or LE swelling. Physical Exam (per Admitting): General Appearance: WD/WN, no apparent distress Head: normocephalic, atraumatic Eyes: normal inspection, sclerae normal ENT: normal ENT inspection, hearing grossly normal, pharynx normal Neck: supple, thyroid normal, trachea midline Respiratory/Chest: chest non-tender, lungs clear, normal breath sounds, no respiratory distress, no accessory muscle use Cardiovascular: regular rate, rhythm, no murmur, normal peripheral pulses Abdomen/GI: non tender, soft, no organomegaly Back: normal inspection Extremities/Musculoskelatal: no calf tenderness, no pedal edema, + pertinent finding (Diffuse erythema, edema of R elbow with extension down forearm. Warm to touch, TTP at the olecranon. ROM intact. ) Neurologic/Psych: no motor/sensory deficits, alert, normal mood/affect, oriented x 3 Skin: normal color, warm/dry Hospital Course This is a 72-year-old male with a past medical history of hypothyroidism, HLD and history of renal stones who presents with worsening right elbow pain and swelling 2 days. RUE cellulitis, possible septic olecranon bursitis: possible sepsis. Presented with fever, tachycardia, leukocytosis Trauma to R elbow ~ 6 weeks ago was on iv cefepime and iv vanco orthopedics on board continue same for now s/p aspiration of olecranon bursa-await cx possible I and D 09/09/17 cx mrsa s/p picc line abx changed to iv daptomycin to give one week from day of surgery then po Bactrim for 1-2 weeks per ID Hypothyroidism: on levothyroxine HLD: to hold statin while on daptomycin discharged home Total time spent on discharge = 35MINUTES This includes examination of the patient, discharge planning, medication reconciliation, and communication with other providers. Discharge Instructions Discharge Instructions Date of Service Sep 12, 2017. Admission Reason for Admission: Cellulitis Of Right Elbow Discharge Discharge Diagnosis / Problem: Rt septic olecranon bursitis Discharge Goals Goal(s): Decrease discomfort, Improve function Activity Recommendations Activity Limitations: resume your previous activity . Instructions / Follow-Up Instructions / Follow-Up FOLLOWUP WITH FAMILY DOCTOR SCHEDULED IN ONE WEEK FOLLOWUP WITH ORTHOPEDICS Dr Sharma ~ 10-14 days, call [phone] for appt. TO START TAKING ORAL ANTIBIOTIC BACTRIM ONE TAB TWICE DAILY FOR 10 TO 14 DAYS AFTER COMPLETING IV ANTIBIOTIC COURSE TO HOLD LIPITOR WHILE ON IV ANTIBIOTIC AND RESUME USUAL HOME DOSE AFTER COMPLETION OF IV ANTIBIOTIC COURSE. ORTHOPEDICS RECOMMENDATIONS: Range of motion as tolerated right elbow. Clean, dry dressing as needed. Wound may be left uncovered when dry. Pt may remove dressing to shower. Ice to elbow as needed for discomfort. Follow-up with Dr Sharma ~ 10-14 days, call [phone] for appt. Current Hospital Diet Patient's current hospital diet: AHA Diet (Heart Healthy) Discharge Diet Recommended Diet: AHA Diet (Heart Healthy) Procedures Procedures Performed: Incision and Drainage Right Olecranon Bursitis, Implantation of Stimulan beads Pending Studies Studies pending at discharge: no Medical Emergencies . Who to Call and When: Medical Emergencies: If at any time you feel your situation is an emergency, please call 911 immediately. . Non-Emergent Contact Non-Emergency issues call your: Primary Care Provider . . "Provider Documentation" section prepared by Cedric Ortiz. . Air Analysis Technician Recommendations Air Analysis Technician Recommendations: Range of motion as tolerated right elbow. Clean, dry dressing as needed. Wound may be left uncovered when dry. Pt may remove dressing to shower. Ice to elbow as needed for discomfort. Follow-up with Dr Sharma ~ 10-14 days, call [phone] for appt.
[2017-09-13] MEDS ORDERED: SULF800T23 PO (12:45)
[2017-09-13] MEDS ORDERED: LCTX PO (12:45)
== END 2017-09-12 16:05 | disposition home or self-care (01) | DRG 854 ==
LOC: C.EDB 12:08 → C.MS4W 14:32 → ENRESERV 14:44
PROVIDERS: ADMIT Internal Medicine; ATTEND Internal Medicine
PROC: 0M933ZX Drainage of Right Elbow Bursa and Ligament, Percutaneous Approach, Diagnostic (ICD-10-PCS; principal; 2017-09-08)
PROC: 3E0102A Introduction of Anti-Infective Envelope into Subcutaneous Tissue, Open Approach (ICD-10-PCS; 2017-09-09)
PROC: 0MB30ZZ Excision of Right Elbow Bursa and Ligament, Open Approach (ICD-10-PCS; 2017-09-09)
PROC: 05HC33Z Insertion of Infusion Device into Left Basilic Vein, Percutaneous Approach (ICD-10-PCS; 2017-09-11)
DX: A41.9 Sepsis, unspecified organism (principal); L03.113 Cellulitis of right upper limb; M70.21 Olecranon bursitis, right elbow; E78.5 Hyperlipidemia, unspecified; E03.9 Hypothyroidism, unspecified; Z79.82 Long term (current) use of aspirin; Z79.899 Other long term (current) drug therapy; Z91.81 History of falling; Z72.89 Other problems related to lifestyle

== ENCOUNTER → 2017-10-27 | Outpatient (CLI) | payer OTHER ==
[~2017-10-27] MED LIST changes: +DAPT500I IV; -FLM4 PO; +LCTX PO; +MELA3TAB7 PO; +SULF800T23 PO
== END | disposition home or self-care (01) ==
LOC: C.LABSPEC 13:27
DX: M71.121 Other infective bursitis, right elbow (principal)

== ENCOUNTER 2018-01-13 16:57 | Inpatient (IN) | payer OTHER ==
[~2018-01-13] VITALS: Ht 177.8 cm; Wt 84.3 kg
[2018-01-13] MEDS ORDERED: SODIUM CHLORIDE 0.9% 1000ML 1,000 ML IV ONE (17:27)
--- NOTE | 2018-01-13 17:45 | EMERGENCY ROOM VISIT NOTE ---
History Report prepared by Francis: Jasmyn Dave Under the Supervision of: Dr. Brian Pérez D.O. First contact with patient: 17:06 Chief Complaint: FEVER Stated Complaint: HIGH FEVER, SCABS ON LEFT HAND History of Present Illness The patient is a 72 year old male who presents to the Emergency Room with complaints of a persistent fever beginning yesterday. He notes his fever was 102.2F, and leaves him feeling very weak. The patient reports he began feeling unwell 2 weeks ago, when he began noticing a rash on his fingers. The patient notes he was seen in an ED in [place] at that time for shoulder pain, but did not mention the rash as he believed it to be poison hnena. He states it began as a small, clear fluid-filled blister on his L wrist, and has spread into scabs on his L hand and up his L arm. The patient reports the scabbing areas are very painful when brushed together. He notes the tips of his fingers are numb. The patient notes he experienced 2 or 3 episodes of diarrhea today, and denies blood or mucus in his stool. He also notes dark urine. He denies joint swelling, headaches, leg redness, CP, SOB, or blood in urine. The patient states his PCP diagnosed him with shingles 1.5 weeks ago and started him on anti -viral medications, which he completed yesterday. He mentions the PCP was not convinced the rash was due to shingles as it was unusual looking. The patient notes he was admitted 4 months ago for 6 days for MRSA on his elbow, which was treated with IV and oral antibiotics. He states his elbow has been asymptomatic for about a month now. Source of History: patient Onset: yesterday Position: head Symptom Intensity: 102.2F Quality: other (persistent) Associated Symptoms: + diarrhea (2 or 3 episodes today), + urinary symptoms (dark urine, denies blood in urine), + rash, No headache, No chest pain, No SOB Note: Associated symptom: numbness in tips of finger. Denies: joint swelling, leg redness Review of Systems See HPI for pertinent positives & negatives. A total of 10 systems reviewed and were otherwise negative. Past Medical & Surgical Medical Problems: (1) Cellulitis of right elbow (2) DJD (degenerative joint disease) of knee (3) HLD (hyperlipidemia) (4) Hypothyroidism (5) Olecranon bursitis (6) Renal colic (7) Sepsis (8) Sepsis Surgical Problems: (1) History of total bilateral knee replacement Family History FH: CHF (congestive heart failure) SISTER FH: HTN (hypertension) BROTHER SISTER No significant history FATHER MOTHER Social History Smoking Status: Never Smoker Smokeless Tobacco Use: No Alcohol Use: occasionally (3-5 times/week) Drug Use: none Marital Status: Housing Status: lives with family Occupation Status: retired Current/Historical Medications Scheduled Aspirin (Aspirin 81), 81 MG PO DAILY Atorvastatin (Lipitor), 10 MG PO QAM Levothyroxine Sodium (Levothyroxine Sodium), 125 MCG PO QAM Multivitamins/Minerals (Mvi With Minerals), 1 TAB PO QAM Scheduled PRN Melatonin-Pyridoxine (Melatonin), 200 MCG PO HS PRN for Sleep Allergies Coded Allergies: No Known Allergies (Unverified , 01/13/18) Physical Exam Vital Signs Date Time Temp Pulse Resp B/P (MAP) Pulse Ox O2 Delivery O2 Flow Rate FiO2 01/13/18 20:16 100 18 122/72 95 Room Air 01/13/18 18:19 88 18 125/76 95 Room Air 01/13/18 18:00 95 Room Air 01/13/18 17:08 37.3 109 18 140/81 95 Room Air Physical Exam GENERAL: Patient is awake, alert, and in no acute distress. Patient is resting comfortably and showing no signs of anxiety EYES: The conjunctivae are clear. The pupils are round and reactive. EARS, NOSE, MOUTH AND THROAT: The nose is without any evidence of any deformity. Mucous membranes are moist. Tongue is midline NECK: The neck is nontender and supple. RESPIRATORY: Normal respiratory effort is noted. There is no evidence of wheezing rhonchi or rales to auscultation. CARDIOVASCULAR: Regular rate and rhythm noted. There no murmurs rubs or gallops normal S1 normal S2 GASTROINTESTINAL: The abdomen is soft. Bowel sounds are present in all quadrants. Abdomen is nontender. BACK: No midline tenderness or or step-off noted range of motion in flexion extension as well as rotation no signs of muscle spasm noted. MUSCULOSKELETAL/EXTREMITIES: There is no evidence of gross deformity. Full range of motion is noted in the hips and shoulders. SKIN: A rash noted to LUE only, raised and appears it may have been healing hemorrhagic bullae at one time. Palpable and tender, appears to be over the dorsum as well as partially the palm of the L hand, extending to the posterior aspect of the LUE NEUROLOGIC: Patient is awake alert and oriented x3. Medical Decision & Procedures ER Provider Diagnostic Interpretation: Radiology results as stated below per my review and radiologist interpretation: SINGLE VIEW CHEST CLINICAL HISTORY: Sepsis. FINDINGS: An AP, portable, upright chest radiograph is compared to study dated 09/07/2017. The examination is mildly degraded by portable technique and patient rotation. The heart is top normal for projection and there is mild atherosclerotic calcification of the thoracic aorta. The pulmonary vasculature is noncongested. There is mild bibasilar atelectasis. The lungs and pleural spaces are otherwise clear. No pneumothorax is seen. The skeletal structures are osteopenic. The bony thorax is grossly intact. IMPRESSION: No acute cardiopulmonary abnormality. Electronically signed by: Jeison Henry M.D. 01/13/2018 5:45 PM Dictated Date/Time: 01/13/2018 5:45 PM Laboratory Results 01/13/18 18:00 Red Blood Count 5.28, Mean Corpuscular Volume 90.7, Mean Corpuscular Hemoglobin 32.4, Mean Corpuscular Hemoglobin Concent 35.7, Mean Platelet Volume 10.5, Neutrophils (%) (Auto) 85.0, Lymphocytes (%) (Auto) 8.2, Monocytes (%) (Auto) 6.1, Eosinophils (%) (Auto) 0.0, Basophils (%) (Auto) 0.1, Neutrophils # (Auto) 13.01, Lymphocytes # (Auto) 1.26, Monocytes # (Auto) 0.93, Eosinophils # (Auto) 0.00, Basophils # (Auto) 0.02 01/13/18 18:00 Test 01/13/18 18:00 01/13/18 18:18 White Blood Count 15.31 K/uL (4.8-10.8) Red Blood Count 5.28 M/uL (4.7-6.1) Hemoglobin 17.1 g/dL (14.0-18.0) Hematocrit 47.9 % (42-52) Mean Corpuscular Volume 90.7 fL (80-100) Mean Corpuscular Hemoglobin 32.4 pg (25-34) Mean Corpuscular Hemoglobin Concent 35.7 g/dl (32-36) Platelet Count 186 K/uL (130-400) Mean Platelet Volume 10.5 fL (7.4-10.4) Neutrophils (%) (Auto) 85.0 % Lymphocytes (%) (Auto) 8.2 % Monocytes (%) (Auto) 6.1 % Eosinophils (%) (Auto) 0.0 % Basophils (%) (Auto) 0.1 % Neutrophils # (Auto) 13.01 K/uL (1.4-6.5) Lymphocytes # (Auto) 1.26 K/uL (1.2-3.4) Monocytes # (Auto) 0.93 K/uL (0.11-0.59) Eosinophils # (Auto) 0.00 K/uL (0-0.5) Basophils # (Auto) 0.02 K/uL (0-0.2) RDW Standard Deviation 44.7 fL (36.4-46.3) RDW Coefficient of Variation 13.8 % (11.5-14.5) Immature Granulocyte % (Auto) 0.6 % Immature Granulocyte # (Auto) 0.09 K/uL (0.00-0.02) Erythrocyte Sedimentation Rate 21 mm/hr (0-14) Prothrombin Time 10.4 SECONDS (9.0-12.0) Prothromb Time International Ratio 1.0 (0.9-1.1) Activated Partial Thromboplast Time 31.1 SECONDS (21.0-31.0) Partial Thromboplastin Ratio 1.2 Urine Color DK YELLOW Urine Appearance CLEAR (CLEAR) Urine pH 5.0 (4.5-7.5) Urine Specific [place] 1.027 (1.000-1.030) Urine Protein 1+ (NEG) Urine Glucose (UA) NEG (NEG) Urine Ketones TRACE (NEG) Urine Occult Blood NEG (NEG) Urine Nitrite NEG (NEG) Urine Bilirubin NEG (NEG) Urine Urobilinogen NEG (NEG) Urine Leukocyte Esterase NEG (NEG) Urine WBC (Auto) 1-5 /hpf (0-5) Urine RBC (Auto) 0-4 /hpf (0-4) Urine Hyaline Casts (Auto) 1-5 /lpf (0-5) Urine Epithelial Cells (Auto) 5-10 /lpf (0-5) Urine Bacteria (Auto) NEG (NEG) Anion Gap 7.0 mmol/L (3-11) Est Creatinine Clear Calc Drug Dose 71.0 ml/min Estimated GFR () 88.0 Estimated GFR (Non- 75.9 BUN/Creatinine Ratio 16.6 (10-20) Calcium Level 9.2 mg/dl (8.5-10.1) Magnesium Level 2.1 mg/dl (1.8-2.4) Total Bilirubin 0.8 mg/dl (0.2-1) Aspartate Amino Transf (AST/SGOT) 19 U/L (15-37) Alanine Aminotransferase (ALT/SGPT) 24 U/L (12-78) Alkaline Phosphatase 68 U/L (45-117) Total Creatine Kinase 73 U/L (39-308) Creatine Kinase MB < 1.0 ng/ml (0.5-3.6) Creatine Kinase MB Ratio (0-3.0) Troponin I < 0.015 ng/ml (0-0.045) C-Reactive Protein 12.00 mg/dl (0-0.29) Total Protein 7.5 gm/dl (6.4-8.2) Albumin 3.9 gm/dl (3.4-5.0) Globulin 3.6 gm/dl (2.5-4.0) Albumin/Globulin Ratio 1.1 (0.9-2) Lipase 241 U/L (73-393) Procalcitonin 0.12 ng/ml (0-0.5) Lyme Disease IgG Antibody NEG (NEG) Lyme Disease IgM Antibody NEG (NEG) Bedside Lactic Acid Venous 0.79 mmol/L (0.90-1.70) Laboratory results per my review. Medications Administered Medications (Trade) Dose Ordered Sig/Yasmine Route Start Time Stop Time Status Last Admin Dose Admin Sodium Chloride 1,000 ml @ 999 mls/hr Q1H1M ONCE IV 01/13/18 17:27 01/13/18 18:27 DC 01/13/18 18:17 999 MLS/HR Vancomycin HCl 2000 mg/Sodium Chloride 540 ml @ 200 mls/hr NOW STAT IV 01/13/18 20:39 01/13/18 23:20 01/13/18 20:56 200 MLS/HR ECG Per My Interpretation Indication: tachycardia Rate (beats per minute): 101 Rhythm: sinus tachycardia Findings: no acute ischemic change, no ectopy Comparison ECG Date: 09/07/17 Change: no significant change ED Course 1716: The patient was evaluated in room C10. A complete history and physical examination were performed. 1726: OrderedNSS 1,000 ml @ 999 mls/hr IV 2038: Ordered Vancomycin HCl 2000 mg/Sodium Chloride 540 mls @ 200 mls/hr IV 1957: I discussed the case with Dr. Pereira [facility] cardiology. He recommended IV antibiotics and a transesophageal echo tomorrow. He recommended keeping patient NPO after midnight. 2030: I discussed the patient's case with Dr. Cueto, [facility] hospitalist. The patient will be evaluated for further management. 2031: I updated the patient on the treatment plan. He will be admitted for further evaluation. Medical Decision Etiologies such as viral syndrome, otitis, pharyngitis, pneumonia, influenza, meningitis, urinary tract infection, sepsis, bacteremia, as well as others were entertained. Nursing notes reviewed. Additional history is obtained from the patient's family member. Additional history was obtained from the patient's primary care office. The patient is a 72-year-old male who presented to the emergency department for a rash on his upper extremity. The patient's been having fevers for the last few days. He was initially seen for this rash recently and was diagnosed with shingles. He went for a follow-up with his primary care physician's office because he was having fevers and it was noted that the rash appeared to be in more than one dermatome and did not appear to be consistent with shingles. His provider called me to discuss the patient coming to the emergency department. The patient was felt to be at significant risk for endocarditis because of his recent olecranon bursitis. This was complicated by a MRSA infection. The patient was treated with IV fluids and IV vancomycin in the emergency department. I discussed patient's laboratory and radiographic studies with him. I also discussed his case with the on-call [facility] railroad brakeman. I also discussed his case with the on-call [facility] hospitalist. They have agreed to evaluate patient in the emergency department for further management and disposition. The patient was to be n.p.o. for transesophageal echo in the morning. Medication Reconcilliation Current Medication List: was personally reviewed by me Blood Pressure Screening Patient's blood pressure: Normal blood pressure Blood pressure disposition: Did not require urgent referral Consults Time Called: 1943 Consulting Physician: Isela Cantu cardiology Returned Call: 1957 I discussed the case with Isela Cantu cardiology. He recommended IV antibiotics and a transesophageal echo tomorrow. He recommended keeping patient NPO after midnight. Additional Consults: Time Called: 2022 Consulted Physician: Isela Mauro hospitalist Returned Call: 2030 Additional Comments: I discussed the patient's case with Isela Mauro hospitalist. The patient will be evaluated for further management. Impression Primary Impression: Fever Additional Impressions: Rash SBE (subacute bacterial endocarditis) Scribe Attestation The scribe's documentation has been prepared under my direction and personally reviewed by me in its entirety. I confirm that the note above accurately reflects all work, treatment, procedures, and medical decision making performed by me. Departure Information Dispostion Being Evaluated By Hospitalist Referrals Arnulfo Valdez M.D. (PCP) Patient Instructions My [facility] Problem Qualifiers Primary Impression: Fever Fever type: unspecified Qualified Codes: R50.9 - Fever, unspecified
[2018-01-13] MEDS ORDERED: ASPI-435 PO (17:47)
[2018-01-13 18:32] LABS: BASO % 0.1 %; BASO ABS # 0.02 K/uL (0-0.2); HEMATOCRIT 47.9 % (42-52); HEMOGLOBIN 17.1 g/dL (14.0-18.0); IG# 0.09 K/uL (0.00-0.02); LYMPH % 8.2 %; LYMPH ABS # 1.26 K/uL (1.2-3.4); MEAN CELL VOLUME 90.7 fL (80-100); MEAN CORPUSCULAR HEMOGLOBIN 32.4 pg (25-34); MEAN CORPUSCULAR HGB CONC 35.7 g/dl (32-36); MEAN PLATELET VOLUME 10.5 fL (7.4-10.4); MONO % 6.1 %; MONO ABS # 0.93 K/uL (0.11-0.59); NEUT ABS # 13.01 K/uL (1.4-6.5); PLATELET COUNT 186 K/uL (130-400); RED CELL DISTRIBUTION WIDTH CV 13.8 % (11.5-14.5); RED CELL DISTRIBUTION WIDTH SD 44.7 fL (36.4-46.3); WHITE BLOOD COUNT 15.31 K/uL (4.8-10.8)
[2018-01-13 18:52] LABS: ALBUMIN 3.9 gm/dl (3.4-5.0); ALKALINE PHOSPHATASE 68 U/L (45-117); ALT/SGPT 24 U/L (12-78); AST/SGOT 19 U/L (15-37); BLOOD UREA NITROGEN 17 mg/dl (7-18); CALCIUM 9.2 mg/dl (8.5-10.1); CARBON DIOXIDE 26 mmol/L (21-32); CKMB < 1.0 ng/ml (0.5-3.6); GLUCOSE 112 mg/dl (70-99); LIPASE 241 U/L (73-393); POTASSIUM 3.9 mmol/L (3.5-5.1); SODIUM 136 mmol/L (136-145); TOTAL PROTEIN 7.5 gm/dl (6.4-8.2)
[2018-01-13 18:55] LABS: PTT PATIENT 31.1 SECONDS (21.0-31.0)
[2018-01-13] MEDS ORDERED: DAPTOMYCIN IV STA (20:32)
[2018-01-13] MEDS ORDERED: VANCOMYCIN IV 2,000 MG in SODIUM CHLORIDE 0.9% 500ML 500 ML IV STA (20:39)
[2018-01-13] MEDS: ENOXAPARIN 40 MG/0.4 ML SYR SC SCH (21:00)
--- NOTE | 2018-01-13 21:53 | History and Physical ---
History & Physical Date & Time of Service: Jan 13, 2018 at 21:26 Chief Complaint: High Fever, Scabs On Left Hand Primary Care Physician: Arnulfo Valdez M.D. History of Present Illness Source: patient, clinic records, hospital records Pt is 72 y/o M with PMH hypothyroidism, hyperlipidemia presented to ER from PCPs office for fever and rash. Patient states yesterday started with fever high of 102.2F and generalized weakness. Taking ibuprofen for fever. Reports 2 episodes of diarrhea today. Approximately 2 weeks ago patient states started with erythematous painful lesion to left wrist which then progressed to left hand and left arm and also with some blisters with associated burning sensation in numbness of his fingertips. Also reports had swelling to left fingers. Was seen by PCP diagnosed with possible shingles and started on Valtrex and Lyrica. Patient states finished Valtrex and stopped using Lyrica yesterday and reports upper arm and forearm with improvement of rash and edema of fingers. Reports continued sensitivity and burning sensation however is less than initial onset. Patient denies other rashes or lesions. Patient with history 2017 of right septic elbow bursitis (MRSA) S/P I&D by Dr. Sharma and also followed by ID - Dr Jordan. She was initially treated with vancomycin and Zosyn and transition to daptomycin and oral Bactrim. Patient had PICC line at that time. Patient states right elbow has been nontender, no recurrent erythema/ edema/discharge. Denies diaphoresis, N/V, melena, hematochezia, SMITH, dizziness, syncope, vision changes, neck pain, CP, SOB, orthopnea, palpitations, cough, sore throat, choking, otalgia, rhinorrhea, abdominal pain, urinary symptoms, weight changes. Denies cardiac history or history of valve replacement History stress echo 10/2016: No ischemia, EF: 60%. Past Medical/Surgical History Medical Problems: (1) Cellulitis of right elbow Status: Resolved (2) DJD (degenerative joint disease) of knee Status: Chronic (3) HLD (hyperlipidemia) Status: Chronic (4) Hypothyroidism Status: Chronic (5) Olecranon bursitis Status: Resolved (6) Renal colic Status: Chronic (7) Sepsis Status: Resolved Surgical Problems: (1) History of total bilateral knee replacement Status: Chronic Family History FH: CHF (congestive heart failure) SISTER FH: HTN (hypertension) BROTHER SISTER No significant history FATHER MOTHER Social History Smoking Status: Never Smoker Smokeless Tobacco Use: No Alcohol Use: none Drug Use: none Marital Status: Housing status: lives with significant other Occupational Status: retired Immunizations History of Influenza Vaccine: No History of Tetanus Vaccine?: No History of Pneumococcal: No History of Hepatitis B Vaccine: No Allergies Coded Allergies: No Known Allergies (Unverified , 01/13/18) Home Medications Scheduled Aspirin (Aspirin 81), 81 MG PO DAILY Atorvastatin (Lipitor), 10 MG PO QAM Levothyroxine Sodium (Levothyroxine Sodium), 125 MCG PO QAM Multivitamins/Minerals (Mvi With Minerals), 1 TAB PO QAM Scheduled PRN Melatonin-Pyridoxine (Melatonin), 200 MCG PO HS PRN for Sleep Review of Systems See HPI for pertinent positives & negatives. All other systems reviewed and were otherwise negative Physical Exam Vital Signs Date Time Temp Pulse Resp B/P (MAP) Pulse Ox O2 Delivery O2 Flow Rate FiO2 01/13/18 20:16 100 18 122/72 95 Room Air 01/13/18 18:19 88 18 125/76 95 Room Air 01/13/18 18:00 95 Room Air 01/13/18 17:08 37.3 109 18 140/81 95 Room Air General Appearance: WD/WN, no apparent distress Head: normocephalic, atraumatic Eyes: normal inspection, PERRL, sclerae normal ENT: hearing grossly normal, pharynx normal, + pertinent finding (Mucous membranes moist) Neck: supple, trachea midline Respiratory/Chest: lungs clear, normal breath sounds, no respiratory distress Cardiovascular: regular rate, rhythm, no murmur, normal peripheral pulses Abdomen/GI: normal bowel sounds, non tender, soft Back: no CVA tenderness Extremities/Musculoskelatal: no calf tenderness, normal capillary refill, no pedal edema, normal range of motion Neurologic/Psych: alert, normal mood/affect, oriented x 3 Skin: warm/dry, + pertinent finding (LUE: Splinter hemorrhages noted middle, index finger. Scabs noted to left forearm, erythematous/purple nodules palmar aspect left hand. +petechiae fingers.) Diagnostics Laboratory Results Results Past 24 Hours Test 01/13/18 18:00 01/13/18 18:18 Range/Units White Blood Count 15.31 4.8-10.8 K/uL Red Blood Count 5.28 4.7-6.1 M/uL Hemoglobin 17.1 14.0-18.0 g/dL Hematocrit 47.9 42-52 % Mean Corpuscular Volume 90.7 80-100 fL Mean Corpuscular Hemoglobin 32.4 25-34 pg Mean Corpuscular Hemoglobin Concent 35.7 32-36 g/dl Platelet Count 186 130-400 K/uL Mean Platelet Volume 10.5 7.4-10.4 fL Neutrophils (%) (Auto) 85.0 % Lymphocytes (%) (Auto) 8.2 % Monocytes (%) (Auto) 6.1 % Eosinophils (%) (Auto) 0.0 % Basophils (%) (Auto) 0.1 % Neutrophils # (Auto) 13.01 1.4-6.5 K/uL Lymphocytes # (Auto) 1.26 1.2-3.4 K/uL Monocytes # (Auto) 0.93 0.11-0.59 K/uL Eosinophils # (Auto) 0.00 0-0.5 K/uL Basophils # (Auto) 0.02 0-0.2 K/uL RDW Standard Deviation 44.7 36.4-46.3 fL RDW Coefficient of Variation 13.8 11.5-14.5 % Immature Granulocyte % (Auto) 0.6 % Immature Granulocyte # (Auto) 0.09 0.00-0.02 K/uL Erythrocyte Sedimentation Rate 21 0-14 mm/hr Prothrombin Time 10.4 9.0-12.0 SECONDS Prothromb Time International Ratio 1.0 0.9-1.1 Activated Partial Thromboplast Time 31.1 21.0-31.0 SECONDS Partial Thromboplastin Ratio 1.2 Urine Color DK YELLOW Urine Appearance CLEAR CLEAR Urine pH 5.0 4.5-7.5 Urine Specific [place] 1.027 1.000-1.030 Urine Protein 1+ NEG Urine Glucose (UA) NEG NEG Urine Ketones TRACE NEG Urine Occult Blood NEG NEG Urine Nitrite NEG NEG Urine Bilirubin NEG NEG Urine Urobilinogen NEG NEG Urine Leukocyte Esterase NEG NEG Urine WBC (Auto) 1-5 0-5 /hpf Urine RBC (Auto) 0-4 0-4 /hpf Urine Hyaline Casts (Auto) 1-5 0-5 /lpf Urine Epithelial Cells (Auto) 5-10 0-5 /lpf Urine Bacteria (Auto) NEG NEG Sodium Level 136 136-145 mmol/L Potassium Level 3.9 3.5-5.1 mmol/L Chloride Level 102 98-107 mmol/L Carbon Dioxide Level 26 21-32 mmol/L Anion Gap 7.0 3-11 mmol/L Blood Urea Nitrogen 17 7-18 mg/dl Creatinine 1.00 0.60-1.40 mg/dl Est Creatinine Clear Calc Drug Dose 71.0 ml/min Estimated GFR () 88.0 Estimated GFR (Non- 75.9 BUN/Creatinine Ratio 16.6 10-20 Random Glucose 112 70-99 mg/dl Calcium Level 9.2 8.5-10.1 mg/dl Magnesium Level 2.1 1.8-2.4 mg/dl Total Bilirubin 0.8 0.2-1 mg/dl Aspartate Amino Transf (AST/SGOT) 19 15-37 U/L Alanine Aminotransferase (ALT/SGPT) 24 12-78 U/L Alkaline Phosphatase 68 45-117 U/L Total Creatine Kinase 73 39-308 U/L Creatine Kinase MB < 1.0 0.5-3.6 ng/ml Creatine Kinase MB Ratio 0-3.0 Troponin I < 0.015 0-0.045 ng/ml C-Reactive Protein 12.00 0-0.29 mg/dl Total Protein 7.5 6.4-8.2 gm/dl Albumin 3.9 3.4-5.0 gm/dl Globulin 3.6 2.5-4.0 gm/dl Albumin/Globulin Ratio 1.1 0.9-2 Lipase 241 73-393 U/L Lyme Disease IgG Antibody NEG NEG Lyme Disease IgM Antibody NEG NEG Bedside Lactic Acid Venous 0.79 0.90-1.70 mmol/L Microbiology Results 01/13/18 Blood Culture, Received Pending 01/13/18 Blood Culture, Received Pending 01/13/18 Blood Culture, Received Pending 01/13/18 Blood Culture, Received Pending Diagnostic Radiology CXR: IMPRESSION: No acute cardiopulmonary abnormality. EKG EKG: sinus tachycardia, rate 101 Impression Assessment and Plan Pt is 72 y/o M with PMH hypothyroidism, hyperlipidemia presented with C/O fever 1 day and rash times couple weeks. FEVER/LEUKOCYTOSIS RASH R/O ENDOCARDITIS Patient C/O weakness, anorexia, fever high of 102.2F started yesterday. Denies CP/SOB. History septic right olecranon bursitis in 08/2017, positive MRSA, S/P I& D, had PICC line, treated with daptomycin and oral Bactrim with reported improvement in no known recurrent pain, erythema, edema, discharge from site. 2 weeks ago started with erythematous painful lesion to left wrist which then progressed to left hand and left arm and also with some blisters with associated burning sensation in numbness of his fingertips and swelling of fingers. Seen by PCP diagnosed with possible shingles and started on Valtrex and Lyrica, finished yesterday. -Today in ER patient afebrile (taking ibuprofen for fever), P: 109-100, R: 18, BP 122/72, 95% on RA. WBC: 15. POC lactic acid WNL. UA: unremarkable. ESR: 21 , CRP: 12. Negative Lyme. Negative CXR. Given vancomycin in ER. -Patient has petechiae like rash to left hand and splinter hemorrhages to left fingers -Pending pro calcitonin -Consider C. difficile studies if increased diarrhea -Antibiotics per attending physician -Cardiology consult, consider echo possible WILLEM -CBC in a.m. HYPOTHYROIDISM -On levothyroxine HLD -On atorvastatin DVT Prophylaxis -Per attending physician Admit telemetry Full code as per discussion with pt Follows with Dr Valdez for routine care Pt was seen with Dr Cueto. See addendum for further assessment and plan Resuscitation Status VTE Prophylaxis Will order VTE Prophylaxis: Yes Assessment/Plan IM ATTENDING : Patient seen and examined. History obtained from patient and records. Preceding documentation by Ms. Priti Spivey PA-C reviewed. In addition, serum procalcitonin was normal. FINAL ASSESSMENT AND PLAN as follows : 1. Possible sepsis possible sources : infective endocarditis. possible splinter hemorrhages on the left upper extremity. (hx PICC line placement for MRSA septic olecranon bursitis sp Rx.) diarrhea, rule out C. difficile. (Recent antibiotic Rx given at [place] ER.) 2. Hypertension, stable. 3. Renal artery stenosis as per records. PCU RE (concerns for infective endocarditis) Cultures. Stool C. diff. Hold off on antibiotics until WILLEM/CS results known Cardiology consult. RE Possible WILLEM in a.m. (ER provider already in touch with Dr. Malhotra.) Consider autoimmune workup if workup does not support infective endocarditis as etiology of splinter hemorrhages. DVT prophylaxis, Lovenox subQ. Full code.
[2018-01-13] MEDS ORDERED: PROCHLORPERAZINE INJ 5 MG in SYRINGE 4 ML IV PRN (22:15)
[2018-01-13] MEDS ORDERED: MoRPHine SULFATE 4 MG/ML 1 ML CARP\\VIAL IV PRN (22:15)
[2018-01-13] MEDS ORDERED: NITROGLYCERIN 0.4 MG SL PER TAB CHARGE SL PRN (22:15)
[2018-01-13] MEDS ORDERED: TRAMADOL HCL 50 MG TAB PO PRN (22:15)
[2018-01-13] MEDS ORDERED: ACETAMINOPHEN 325 MG TAB PO PRN (22:15)
--- NOTE | 2018-01-13 23:19 | HISTORY & PHYSICAL EXAMINATION ---
DATE OF ADMISSION: 01/13/2018 IM ATTENDING : Patient seen and examined. History obtained from patient and records. Preceding documentation by Ms. Priti Spivey PA-C reviewed. In addition, serum procalcitonin was normal. FINAL ASSESSMENT AND PLAN as follows : 1. Possible sepsis possible sources : infective endocarditis. possible splinter hemorrhages on the left upper extremity. (hx PICC line placement for MRSA septic olecranon bursitis sp Rx.) diarrhea, rule out C. difficile. (Recent antibiotic Rx given at [place] ER.) 2. Hypertension, stable. 3. Renal artery stenosis as per records. PCU RE (concerns for infective endocarditis) Cultures. Stool C. diff. Hold off on antibiotics until WILLEM/CS results known Cardiology consult. RE Possible WILLEM in a.m. (ER provider already in touch with Dr. Malhotra.) DVT prophylaxis, Lovenox subQ. Full code. MTDD
[2018-01-13 23:35] VITALS: BP 146/100; PULSE 83; TEMP 36.8; O2SAT 96; Ht 177.8 cm; Wt 84.3 kg
[2018-01-14] VITALS (14 sets, daily range): BP systolic 119–150; BP diastolic 70–93; PULSE 74–94; TEMP 36.5–38.5; O2SAT 87–99
[2018-01-14] MEDS: NSS + 20MEQ KCL 1000ML 1,000 ML IV SCH ×2 (00:47→21:59)
[2018-01-14 06:00] LABS: HEMOGLOBIN A1C 5.4 % (4.5-5.6)
[2018-01-14] MEDS: LEVOTHYROXINE 125 MCG TAB PO SCH (06:30)
[2018-01-14] MEDS ORDERED: PNEUMOCOCCAL POLYSACCHARIDES 25 MCG/0.5 ML VIAL/SYR IM. ONE (08:00)
[2018-01-14] MEDS ORDERED: PNEUMOCOCCAL ADMINISTRATION CHARGE ONE (08:00)
[2018-01-14 08:08] LABS: BASO % 0.2 %; BASO ABS # 0.03 K/uL (0-0.2); EOS % 0.1 %; EOS ABS # 0.02 K/uL (0-0.5); HEMATOCRIT 43.1 % (42-52); IG# 0.08 K/uL (0.00-0.02); LYMPH % 8.2 %; LYMPH ABS # 1.13 K/uL (1.2-3.4); MEAN CELL VOLUME 90.9 fL (80-100); MEAN CORPUSCULAR HEMOGLOBIN 31.6 pg (25-34); MEAN CORPUSCULAR HGB CONC 34.8 g/dl (32-36); MEAN PLATELET VOLUME 10.4 fL (7.4-10.4); MONO % 7.8 %; MONO ABS # 1.07 K/uL (0.11-0.59); NEUT % 83.1 %; NEUT ABS # 11.41 K/uL (1.4-6.5); PLATELET COUNT 173 K/uL (130-400); RED CELL DISTRIBUTION WIDTH CV 13.8 % (11.5-14.5); RED CELL DISTRIBUTION WIDTH SD 45.2 fL (36.4-46.3); WHITE BLOOD COUNT 13.74 K/uL (4.8-10.8)
[2018-01-14] MEDS: CEROVITE ADV FORMULA TAB PO SCH (08:52)
[2018-01-14] MEDS: ASPIRIN 81 MG ECTAB PO SCH (08:52)
[2018-01-14] MEDS: ATORVASTATIN 10 MG TAB PO SCH (08:52)
--- NOTE | 2018-01-14 09:08 | Cardiology Consultation ---
Cardiology Consultation Date of Consultation: Jan 14, 2018 History of Present Illness Andrew Hudson is a 72 year old male seen in cardiology consultation per the request of Dr. Reynaga for recent episode of fevers, and concern for endocarditis. The patient's recent medical history dates back to August, when he had been found to have an inflamed left elbow. He underwent surgical intervention with orthopedic surgery for findings of a septic right olecranon bursitis with intraoperative cultures yielding MRSA. Per the infectious disease note, it appears the initial plan was for the patient to be discharged on 1 week of IV daptomycin therapy and then he was to be transitioned to Bactrim for another week. The patient states however that upon outpatient follow-up at that time he had been having persistent drainage from his right elbow and therefore he recalls being placed on a prolonged course of oral Bactrim as directed by Dr. Sharma of orthopedics and then by Dr. Jordan of infectious disease. The patient believes he may have been on Bactrim for an interval of up to 2 months at which time the drainage had apparently improved. He has had an ulceration on the radial aspect of his left wrist that has been slow to heal for the last few weeks. 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 This has not been painful in the past. He recently started using a new tool belt that included suspenders that ran over this area of the shoulder, but he did not think this initially had caused him discomfort. He had gone on vacation recently in [place] and developed severe left shoulder pain at the site of this chronic cystic abnormality that seem to be more enlarged. He was seen in the emergency department at [facility] in [facility] on 12/18/16 he describes being treated with a course of ibuprofen and oral antibiotic. He returned home and subsequently improved in terms of his shoulder pain. He then however developed a blistering skin eruption limited to his left hand in between his fingers and on the hand but not anywhere else on his body. Been seen by family practice, there is concern that perhaps this was a shingles outbreak. The skin eruption however worsened, and starting 2 days ago he started having fevers and debilitating chills. He therefore had slept for hours. Yesterday he had recurrent subjective fever prompting evaluation at [facility] practice at [facility]. He was referred to the emergency room for further assessment. The patient was seen by the undersigned in room 235-1 on the telemetry floor. He was comfortable. He has had subjective warmth overnight, but no objective fever on his vital signs. He denies any chest pain or shortness of breath. He does have diarrhea that is started over the last few days. 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 He lives with his spouse, Shara. His daughter, Nisha accompanies him at the bedside. He is a non-smoker. Family History: No family history of heart disease. Review Of Systems General: Positive for fevers chills heavy perspiration as noted in the HPI Head: The patient denies headache and prior head trauma. Cardiovascular: The patient denies chest pain or chest discomfort, dyspnea on exertion, palpitations, PND, orthopnea, edema, spontaneous shortness of breath, syncope and near syncope. Pulmonary: The patient denies cough, wheeze, pleurisy, hemoptysis, sputum, and excessive snoring. Gastrointestinal: Positive for recent diarrhea, no bloody bowel movements Skin: Positive for blistering eruption of the left hand Musculoskeletal: Positive for past elbow pain which is resolved, recent shoulder pain. Neurological: The patient denies prior stroke and seizures, or recent neurologic symptoms Point review of systems is reviewed and is otherwise negative Allergies Coded Allergies: No Known Allergies (Unverified , 01/13/18) Medications Reported Home Medications Medications Dose Route/Sig Max Daily Dose Days Date Category Aspirin 81 (Aspirin) 81 Mg Tab 81 Mg PO DAILY 01/13/18 Reported Melatonin (Melatonin-Pyridoxine) 1 Tab Tab 200 Mcg PO HS PRN 09/07/17 Reported Lipitor (Atorvastatin Calcium) 10 Mg Tab 10 Mg PO QAM 02/21/17 Reported Levothyroxine Sodium 125 Mcg Tab 125 Mcg PO QAM 03/31/13 Reported Mvi With Minerals (Multivitamins/Minerals) Tab 1 Tab PO QAM 02/15/09 Reported Physical Exam Vital Signs (Last 8hrs): Last 8 Hrs Date Time Temp Pulse Resp B/P (MAP) Pulse Ox O2 Delivery O2 Flow Rate FiO2 01/14/18 04:23 Room Air 01/14/18 03:04 37.5 82 18 123/73 (90) 96 Room Air General Appearance: Alert and Oriented x3. NAD. Head: Normocephalic Atraumatic. Eyes: PERRLA, EOMI, conjunctiva and sclera clear Neck: Supple. No carotid bruits noted. No JVD. No HJD. Respiratory: Breath sounds clear to auscultation bilaterally. No w/r/r. Cardiovascular: Reg rate and rhythm. S1 and S2 noted. No murmurs, rubs, gallops. PMI non displace. Abdomen: Normal bowel sounds, soft nontender. no abdominal bruits. Extremities: No edema, no clubbing or cyanosis. There is a healing ulcer over the radial aspect of the left wrist, there are healing purpuric blistering lesions of the left hand Neuro: No focal deficits. Psychiatric: Normal affect. Data Last Resulted 01/14/18 07:41 Red Blood Count 4.74, Mean Corpuscular Volume 90.9, Mean Corpuscular Hemoglobin 31.6, Mean Corpuscular Hemoglobin Concent 34.8, Mean Platelet Volume 10.4, Neutrophils (%) (Auto) 83.1, Lymphocytes (%) (Auto) 8.2, Monocytes (%) (Auto) 7.8, Eosinophils (%) (Auto) 0.1, Basophils (%) (Auto) 0.2, Neutrophils # (Auto) 11.41, Lymphocytes # (Auto) 1.13, Monocytes # (Auto) 1.07, Eosinophils # (Auto) 0.02, Basophils # (Auto) 0.03 Last Resulted 01/13/18 18:00 Past 24 Hours Test 01/13/18 18:00 Range/Units Creatine Kinase MB < 1.0 0.5-3.6 ng/ml Creatine Kinase MB Ratio 0-3.0 Prothromb Time International Ratio 1.0 0.9-1.1 Prothrombin Time 10.4 9.0-12.0 SECONDS Total Creatine Kinase 73 39-308 U/L Troponin I < 0.015 0-0.045 ng/ml EKG performed 01/13/2018 and reviewed independently revealed sinus tachycardia 101 bpm. Preliminary thoracic echocardiogram summary 01/14/2018: There is normal left ventricular wall thickness. The left ventricular wall motion is normal. The LV ejection Fraction = 60-65%. Mild aortic regurgitation. There is a small linear mobile echodensity, anterior to the anterior portion of the mitral valve annulus measuring 0.8 cm x 0.2 cm (image 98). This could be artifactual, however given clinical history, agitation must be considered, and the transesophageal echocardiogram is recommended for further assessment. Assessment & Plan Impression: 72-year-old male Recent febrile illness, with associated purpuric blistering rash limited to left hand, past history of MRSA olecranon bursitis Discussion recommendations: The patient underwent a transthoracic echocardiogram today with a small linear echodensity adherent to the anterior mitral annulus as outlined above. Given his clinical history, recommend further assessment with transesophageal echocardiogram. Continue antibiotics, vancomycin for now. Blood cultures have been drawn x 4. Patient is afebrile, and nontoxic in appearance. The lesions on his hand are actually resolving. Given his complex past infectious history for which he is previously followed with Dr. Jordan of infectious disease, I have placed a consult for Dr. Jordan and I discussed the case with him by telephone. To proceed with transesophageal echocardiogram today. Patient is n.p.o. except for meds.
--- NOTE | 2018-01-14 09:12 | ECHOCARDIOGRAM REPORT ---
*NOTICE TO RECEIVING REPUBLICAN AGENCY This information is strictly Confidential and protected under [place] law. [place] law prohibits you from making any further disclosure of this information unless further disclosure is expressly permitted by the written consent of the person to whom it pertains or is authorized by law. A general authorization for the release of medical or other information is not sufficient for this purpose. Hospital accepts no responsibility if the information is made available to any other person, INCLUDING THE PATIENT. Interpretation Summary * Name: EZEKIEL OTERO Study Date: 01/14/2018 06:56 AM BP: 123/73 mmHg * Patient Location: C.2T\S\S235\S\1 HR: 82 * : 1945 (M/d/yyyy) Gender: Male Height: 70 in * Age: 72 yrs Ethnicity: CA Weight: 189 lb * Ordering Physician: Tu Malhotra * Referring Physician: Self, Referred * Performed By: Osvaldo Cuellar RCS * * Reason For Study: Endocarditis * BSA: 2.0 m2 * -- Conclusions -- * There is normal left ventricular wall thickness. * The left ventricular wall motion is normal. * The LV ejection Fraction = 60-65%. * Mild aortic regurgitation. * There is a small linear mobile echodensity, anterior to the anterior portion of the mitral valve annulus measuring 0.8 cm x 0.2 cm (image 98). This could be artifactual, however given clinical history, agitation must be considered, and the transesophageal echocardiogram is recommended for further assessment. Procedure Details * A complete two-dimensional transthoracic echocardiogram was performed (2D, M-mode, Doppler and color flow Doppler). Left Ventricle * The left ventricle is normal in size. * There is normal left ventricular wall thickness. * Left ventricular systolic function is normal. * Ejection Fraction = 60-65%. * The left ventricular wall motion is normal. Right Ventricle * The right ventricle is normal in size and function. Atria * The left atrial size is normal. * Right atrial size is normal. * There is no evidence of atrial septal defect, but resolution does not allow assessment for a patent foramen ovale. Mitral Valve * There is a small linear mobile echodensity, anterior to the anterior portion of the mitral valve annulus measuring 0.8 cm x 0.2 cm (image 98). This could be artifactual, however given clinical history, agitation must be considered, and the transesophageal echocardiogram is recommended for further assessment. * There is no mitral valve stenosis. * Significant mitral regurgitation is absent. Tricuspid Valve * The tricuspid valve is normal. * There is no tricuspid stenosis. * Significant tricuspid regurgitation is absent. * Doppler findings do not suggest pulmonary hypertension. Aortic Valve * The aortic valve is trileaflet. * Aortic valve sclerosis mild, without significant aortic valvular stenosis. * Aortic stenosis is absent. * Mild aortic regurgitation. Pulmonic Valve * The pulmonary valve is not well seen, but the Doppler examination is normal without significant regurgitation or stenosis. Great Vessels * The aortic root and proximal ascending aorta are normal sized. Pericardium/Pleural * There is no pericardial effusion. Right Ventricle * A moderator band is seen in the right ventricle (normal anatomical variant). Great Vessels * Normal inferior vena cava diameter and respiratory variation suggests normal central venous pressure. Left Ventricular Diastolic Function * Grade I diastolic dysfunction, (abnormal relaxation pattern). MMode 2D Measurements and Calculations IVSd 1.0 cm IVSs 1.4 cm LVIDd 4.7 cm LVIDs 3.0 cm LVPWd 1.0 cm LVPWs 1.6 cm IVS/LVPW 1.0 FS 35.5 % EDV(Teich) 102.1 ml ESV(Teich) 35.8 ml EF(Teich) 65.0 % EDV(cubed) 103.5 ml ESV(cubed) 27.7 ml EF(cubed) 73.2 % % IVS thick 31.9 % % LVPW thick 52.9 % LV mass(C)d 172.6 grams LV mass(C)dI 84.7 grams/m\S\2 LV mass(C)s 155.6 grams LV mass(C)sI 76.3 grams/m\S\2 SV(Teich) 66.4 ml SI(Teich) 32.6 ml/m\S\2 SV(cubed) 75.8 ml SI(cubed) 37.2 ml/m\S\2 ACS 3.9 cm LA dimension 4.5 cm asc Aorta Diam 4.3 cm EDV(sp4-el) 105.0 ml ESV(sp4-el) 45.0 ml EF(sp4-el) 57.1 % EDV(MOD-sp2) 126.0 ml ESV(MOD-sp2) 47.0 ml EF(MOD-sp2) 62.7 % SV(MOD-sp2) 79.0 ml SI(MOD-sp2) 38.8 ml/m\S\2 SV(sp4-el) 60.0 ml SI(sp4-el) 29.4 ml/m\S\2 Doppler Measurements and Calculations MV E max deisi 61.8 cm/sec MV A max deisi 58.9 cm/sec MV E/A 1.0 MV P1/2t max deisi 71.6 cm/sec MV P1/2t 83.4 msec MVA(P1/2t) 2.6 cm\S\2 MV dec slope 251.6 cm/sec\S\2 MV dec time 0.30 sec Ao V2 max 132.7 cm/sec Ao max PG 7.0 mmHg Ao max PG (full) 3.0 mmHg AI max deisi 437.5 cm/sec AI max PG 76.6 mmHg AI dec slope 282.4 cm/sec\S\2 AI P1/2t 453.7 msec LV V1 max PG 4.0 mmHg LV V1 max 100.3 cm/sec PA V2 max 138.5 cm/sec PA max PG 7.7 mmHg TR max deisi 316.6 cm/sec
[2018-01-14] MEDS ORDERED: BENZOCAIN/TETRACA/BUTAM SPRAY 200 APPLN/20 GM SPRY ONE (09:31)
[2018-01-14] MEDS ORDERED: FENTANYL CITRATE INJ 50 MCG/1 ML 2 ML VIAL ONE (09:31)
[2018-01-14] MEDS ORDERED: CANNULA ONE (09:32)
[2018-01-14] MEDS ORDERED: LIDOCAINE HCL 2% VISC SOLN 20 ML UDC ONE (09:32)
[2018-01-14] MEDS ORDERED: MIDAZOLAM HCL 1 MG/ML 2ML VIAL ONE (09:32)
--- NOTE | 2018-01-14 09:39 | Pre Sedation Assessment ---
Pre Sedation Assessment General Date of Sedation: Jan 14, 2018. Vital Signs Past 12 Hours Date Time Temp Pulse Resp B/P (MAP) Pulse Ox O2 Delivery O2 Flow Rate FiO2 01/14/18 04:23 Room Air 01/14/18 03:04 37.5 82 18 123/73 (90) 96 Room Air 01/13/18 23:35 36.8 83 18 146/100 96 Room Air 01/13/18 22:16 37.2 88 18 122/72 95 Room Air Review Cardiovascular: regular rate, rhythm, no edema, no gallop, no JVD Lungs: lungs clear Pre-Sedation Airway Assessment Smoking Status: Never Smoker Hx of Sleep Apnea: No Hx of difficult intubation: No Short Thick Neck: No Oral Cavity: WNL Mallampati Classification: Class II ASA Classification: Class II NPO Status Date of Last Intake of Fluids: Jan 13, 2018 Time of Last Intake of Fluids: 23:59 Date of Last Intake of Solids: Jan 13, 2018 Time of Last Intake of Solids: 23:59 Procedure Planning Contraindications for Sedation: None Current Medications Reviewed: Yes Notes The planned sedation has been discussed with the patient. Informed Consent was obtained. I have identified the patient, determined the appropriateness of sedation and have assessed the patient immediately prior to the procedure. All medicine(s) and interventions are by my order.
--- NOTE | 2018-01-14 11:35 | Post Sedation Assessment ---
Post Sedation Assessment General Date of Sedation Jan 14, 2018. Vital Signs: Vital Signs Past 12 Hours Date Time Temp Pulse Resp B/P (MAP) Pulse Ox O2 Delivery O2 Flow Rate FiO2 01/14/18 11:29 83 16 137/87 (104) 94 Room Air 01/14/18 11:19 83 12 133/87 (102) 97 Nasal Cannula 2 01/14/18 09:59 37.2 81 12 131/86 (101) 97 Room Air 01/14/18 08:00 Room Air 01/14/18 04:23 Room Air 01/14/18 03:04 37.5 82 18 123/73 (90) 96 Room Air Post Procedure Recovery Score Activity: (2) Moves 4 extremities * Respiration: (2) Deep breath/cough Circulation: (2) +/-20% PreAnes Value Consciousness: (2) Fully Awake Oxygen Saturation: (2) > 92% On Room Air Post Anesthesia Score: 10 Discharge Sedation Level of Care: Fast Track Phase II Post Sedation Plan On clinical assessment, the patient appears to have tolerated the sedation without complications. Patient is recovering as anticipated. Patient will continue to be monitored by nursing and may be discharged when sedation discharge criteria are met per below protocol. Upon Completions of procedure and additional 15 minutes continue every 5 minute vital signs and the P.A.R. score; then discharge to a Phase I or Fast Track to Phase II per the following guidelines: * Discharge Patient to appropriate Phase II area if PAR is 8 or greater or return to pre- procedure baseline. The post - procedure orders will be as directed. * If PAR score is less than 8 or not return to pre-procedure baseline then patient will follow Phase I monitoring till PAR is reached for Phase II. The Phase I may be done in procedure room or may call to secure a Phase I area. * If naloxone or flumazenil are used for reversal, hold in Phase I for an additional 60 -120 minutes before discharge to Phase II. Please call the Sedation Physician to re-evaluate and complete post-note for discharge to Phase II area. Do NOT discharge from procedure sedation or Phase 1 until post- sedation evaluation note is complete by procedure /sedation MD Sedation Discharge Instructions to be given to the patient at discharge to home.
--- NOTE | 2018-01-14 11:41 | Cardiology Procedure Brief Nt ---
Preliminary Cardiology Note Procedure Date Jan 14, 2018. Pre-Procedure Diagnosis rule out endocartitis Post-Procedure Diagnosis MV vegetation, endocarditis Procedure(s) Performed WILLEM under conscious sedation [employer] Aida Malhotra DO Supervisor Beet End(s) Carlos Mantilla, DESHAWN Estimated Blood Loss none Preliminary Findings Small mobile echodensity on the mitral valve consistent with small vegetation. Small linear echodensity on the aortic valve. No abscess. Recommendations Recommend antibiotic therapy for endocarditis. Repeat WILLEM in 4-6 weeks to ensure stability. Specimens none Anesthesia Versed 3 mg IV, Fentanly 100 mcg IV Complication(s) None Disposition PCU
[2018-01-14] MEDS: VANCOMYCIN IV 1,500 MG in SODIUM CHLORIDE 0.9% 500ML 500 ML IV SCH ×2 (12:22→23:53)
--- NOTE | 2018-01-14 15:03 | Pharmacy Progress Note ---
Pharmacy Abx Initial Consult Date of Service Jan 14, 2018. Pharmacy Dosing Scope Date of Consult: 01/14/18 Consultation requested by: Dr. Cueto Pharmacy is consulted to initiate Vancomycin IV dosing therapy, order appropriate labs and adjust drug dose/frequency. Subjective The patient is a 72 year old male admitted on Jan 13, 2018 at 21:24. Objective Height (Feet): 5 Height (Inches): 10.00 Weight (Kilograms): 83.800 Vital Signs (Past 12Hrs) Vital Signs Past 12 Hours Date Time Temp Pulse Resp B/P (MAP) Pulse Ox O2 Delivery O2 Flow Rate FiO2 01/14/18 13:00 36.5 90 18 127/83 (98) 97 Room Air 01/14/18 12:11 37.2 87 18 140/88 (105) 87 01/14/18 11:49 82 16 133/86 (102) 96 Room Air 01/14/18 11:39 80 14 131/86 (101) 93 Room Air 01/14/18 11:29 83 16 137/87 (104) 94 Room Air 01/14/18 11:19 83 12 133/87 (102) 97 Nasal Cannula 2 01/14/18 11:17 Nasal Cannula 2 01/14/18 11:15 77 20 150/93 97 Nasal Cannula 2 01/14/18 11:10 74 16 141/91 96 Nasal Cannula 2 01/14/18 11:05 80 16 133/85 97 Nasal Cannula 2 01/14/18 11:00 75 20 140/86 97 Nasal Cannula 2 01/14/18 10:55 80 12 136/89 96 Nasal Cannula 2 01/14/18 10:53 Nasal Cannula 2 01/14/18 10:50 81 18 128/92 97 Nasal Cannula 2 01/14/18 10:45 80 16 123/90 99 Nasal Cannula 2 01/14/18 10:43 83 16 137/89 98 Nasal Cannula 2 01/14/18 09:59 37.2 81 12 131/86 (101) 97 Room Air 01/14/18 08:00 Room Air 01/14/18 04:23 Room Air 01/14/18 03:04 37.5 82 18 123/73 (90) 96 Room Air Lab Results (24Hrs) Laboratory Tests (24 Hours) Test 01/13/18 18:00 01/14/18 07:41 C-Reactive Protein 12.00 mg/dl (0-0.29) H Erythrocyte Sedimentation Rate 21 mm/hr (0-14) H Procalcitonin 0.12 ng/ml (0-0.5) Total Creatine Kinase 73 U/L (39-308) White Blood Count 13.74 K/uL (4.8-10.8) H Red Blood Count 4.74 M/uL (4.7-6.1) Hemoglobin 15.0 g/dL (14.0-18.0) Hematocrit 43.1 % (42-52) Mean Corpuscular Volume 90.9 fL (80-100) Mean Corpuscular Hemoglobin 31.6 pg (25-34) Mean Corpuscular Hemoglobin Concent 34.8 g/dl (32-36) Platelet Count 173 K/uL (130-400) Mean Platelet Volume 10.4 fL (7.4-10.4) Neutrophils (%) (Auto) 83.1 % Lymphocytes (%) (Auto) 8.2 % Monocytes (%) (Auto) 7.8 % Eosinophils (%) (Auto) 0.1 % Basophils (%) (Auto) 0.2 % Neutrophils # (Auto) 11.41 K/uL (1.4-6.5) H Lymphocytes # (Auto) 1.13 K/uL (1.2-3.4) L Monocytes # (Auto) 1.07 K/uL (0.11-0.59) H Eosinophils # (Auto) 0.02 K/uL (0-0.5) Basophils # (Auto) 0.03 K/uL (0-0.2) Micro Results Date/Time Source Procedure Growth Status 01/13/18 18:08 Blood Blood Culture Pending Received 01/13/18 18:00 Blood Blood Culture Pending Received 01/13/18 17:50 Blood Blood Culture Pending Received 01/13/18 17:40 Blood Blood Culture Pending Received 01/14/18 00:02 Stool C.difficile Toxin B Gene (PCR) - Final No C. difficile toxin B gene detected Complete Risk Factors for Resistance * History of infection with a multidrug-resistant organism: MRSA in elbow 08/29 Assessment & Plan Assessment 72 year old male presenting to ED with fever and rash. Had a fever of 102.2 yesterday and generalized weakness. 2 episodes of diarrhea today. Diagnosed with shingles 2 weeks ago and finished treatment yesterday. Patient has history of right septic elbow bursitis (MRSA) in 08/29 , had PICC line placed and was treated with bactrim and daptomycin. Blood cultures currently pending. ID is consulted. Plan Vancomycin for treatment of Endocarditis Vancomycin IV * Loading dose: 2000 mg (24 mg/kg) * Maintenance dose: 1500 mg IV (18 mg/kg) every 12 hours * Estimated pharmacokinetics: ke=0.063, t1/2=11 hours * Goal trough level for Endocarditis : 15 to 20 mcg/mL * Trough/Random level ordered for 01/15/18 at 1130 Pharmacy will continue to follow and will adjust dose/frequency as necessary. Thank you.
--- NOTE | 2018-01-14 15:08 | TEE ---
*NOTICE TO RECEIVING CONSTITUTION PARTY AGENCY This information is strictly Confidential and protected under [place] law. [place] law prohibits you from making any further disclosure of this information unless further disclosure is expressly permitted by the written consent of the person to whom it pertains or is authorized by law. A general authorization for the release of medical or other information is not sufficient for this purpose. Hospital accepts no responsibility if the information is made available to any other person, INCLUDING THE PATIENT. Interpretation Summary * Name: EZEKIEL OTERO Study Date: 01/14/2018 09:44 AM BP: 137/87 mmHg * Patient Location: .2T\S\S235\S\1 HR: 76 * : 1945 (M/d/yyyy) Gender: Male Height: 70 in * Age: 72 yrs Ethnicity: [place] Weight: 184 lb * Ordering Physician: Tu Malhotra * Referring Physician: Self, Referred * Performed By: Bita Jain RDCS * * Reason For Study: Endocarditis * BSA: 2.0 m2 * Start time: 10:43 am * End time: 11:17 am * -- Conclusions -- * Study was technically adequate for the referral indication. * There is borderline to mild prolapse of the posterior mitral valve leaflet. * There is trace mitral regurgitation. * There is a small mobile linear echodensity adherent to the atrial aspect of the posterior mitral valve leaflet. * Taking the patient's clinical history into consideration, findings consistent with a small vegetation. * There is no evidence of valvular perforation or abscess. * The aortic valve is trileaflet. * Mild aortic valve sclerosis is present. * Mild aortic regurgitation. * No hemodynamically significant valvular aortic stenosis. * There is a small linear echodensity noted in the long axis view on the noncoronary cusp of the aortic valve consistent with a nonvascular strand versus vegetation. Procedure Details * The transesophageal portion of this study was personally supervised by the undersigned interpreting physician. * WILLEM Probe #2 utilized for procedure. * The study was performed in Cardiopulmonary Department. * Time out was conducted by the physician, nurse, and technical program manager with positive identification of patient and procedure. * Informed consent for Transesophageal Echocardiogram was obtained prior to the procedure. * An intravenous line was placed. A topical anesthetic agent was used for oropharangeal anesthesia. A bite block was inserted. * The patient's vital signs, including blood pressure, heart rate, pulse oximetry and cardiac rhythm were monitored throughout the procedure . * Fentanyl 100 mcg was administered for procedural sedation. * Midazolam 3 mg administered for sedation. * The posterior oropharynx was anesthetized using a topical anesthetic spray. A bite guard was inserted. * A multifrequency, multiplane transesopheageal echocardiographic endoscope was inserted and manipulated in the standard fashion to achieve multiplane views. * The transesophageal probe was passed without difficulty. * The usual views were obtained; basal, mid-esophageal, transgastric and aortic views. * The patient tolerated the procedure well without evidence of orophangeal or esophageal trauma. * A 2D transesophageal echocardiogram with spectral and color flow Doppler was performed. * Contrast injection with agitated saline was performed. * A 2D transesophageal echocardiogram with Doppler and color flow Doppler was performed. Left Ventricle * The left ventricle is normal in size. * There is normal left ventricular wall thickness. * Left ventricular systolic function is normal. * Ejection Fraction = 60-65%. * The left ventricular wall motion is normal. Right Ventricle * The right ventricle is normal in size and function. Atria * The left atrial size is normal. * The left atrial appendage was not assessed. * Right atrial size is normal. * The interatrial septum is intact with no evidence for an atrial septal defect. Mitral Valve * There is borderline to mild prolapse of the posterior mitral valve leaflet. * There is no mitral valve stenosis. * There is trace mitral regurgitation. * There is a small mobile linear echodensity adherent to the atrial aspect of the posterior mitral valve leaflet. Taking the patient's clinical history into consideration, findings consistent with a small vegetation. There is no evidence of valvular perforation or abscess. Tricuspid Valve * The tricuspid valve is normal. * There is no tricuspid stenosis. * Doppler findings do not suggest pulmonary hypertension. * Significant tricuspid regurgitation is absent. Aortic Valve * The aortic valve is trileaflet. * Mild aortic valve sclerosis is present. * There is a small linear echodensity noted in the long axis view on the noncoronary cusp of the aortic valve consistent with a nonvascular strand versus vegetation. * No hemodynamically significant valvular aortic stenosis. * Mild aortic regurgitation. Pulmonic Valve * The pulmonic valve is not well seen, but is grossly normal. Great Vessels * The aortic root is normal size. * There is a moderate degree of nonmobile atheromatous plaque noted in the visualized portion of the descending thoracic aorta and aortic arch. Pericardium * There is no pericardial effusion.
--- NOTE | 2018-01-14 15:29 | Medical Consult ---
Consultation Date of Consultation: Jan 14, 2018. Attending Physician: Bren Puentes M.D. Reason for Consultation: Recurrent fever, history of MRSA bursitis History of Present Illness 72-year-old male known to me from previous consultation in August for MRSA associated septic olecranon bursitis, who presents now with several days of fevers, chills, weakness, and acute onset of painful erythematous/purplish lesions involving his left upper extremity and hands and fingers. He was seen by another physician and thought at possibly have shingles, and was started on Valtrex. Fever persisted, and patient was referred for further management. He has been started on broad-spectrum antibiotics, and echocardiogram has been obtained which shows evidence of mitral valve vegetation. Blood cultures have been drawn and are pending. Patient has been started empirically on vancomycin and ceftriaxone. Has had no new embolic type lesions since admission. States he is feeling better since on antibiotics, temperature has improved. Past Medical/Surgical History Medical Problems: (1) Fever Status: Acute (2) Kidney stone Status: Acute (3) Rash Status: Acute (4) Renal colic Status: Acute (5) Right flank pain Status: Acute Medical Problems: (1) Cellulitis of right elbow (2) DJD (degenerative joint disease) of knee (3) HLD (hyperlipidemia) (4) Hypothyroidism (5) Olecranon bursitis (6) Renal colic (7) Sepsis (8) Sepsis Surgical Problems: (1) History of total bilateral knee replacement Family History FH: CHF (congestive heart failure) SISTER FH: HTN (hypertension) BROTHER SISTER No significant history FATHER MOTHER Social History Smoking Status: Never Smoker Smokeless Tobacco Use: No Alcohol Use: none Drug Use: none Marital Status: Housing Status: lives with family Occupation Status: retired Allergies Coded Allergies: No Known Allergies (Unverified , 01/13/18) Current Inpatient Medications Current Inpatient Medications Medications (Trade) Dose Ordered Sig/Yasmine Route Start Time Stop Time Status Last Admin Dose Admin Enoxaparin Sodium (Lovenox Inj) 40 mg Q24H SC 01/13/18 21:00 02/12/18 20:59 Potassium Chloride/Sodium Chloride 1,000 ml @ 60 mls/hr [id number] IV 01/13/18 23:45 02/12/18 23:44 01/14/18 00:47 60 MLS/HR Acetaminophen (Tylenol Tab) 650 mg Q4H PRN PO 01/13/18 22:15 02/12/18 22:14 Nitroglycerin (Nitrostat Tab) 0.4 mg UD PRN SL 01/13/18 22:15 02/12/18 22:14 Aspirin (Ecotrin Tab) 81 mg DAILY PO 01/14/18 09:00 02/13/18 08:59 01/14/18 08:52 81 MG Atorvastatin Calcium (Lipitor Tab) 10 mg QAM PO 01/14/18 09:00 02/13/18 08:59 01/14/18 08:52 10 MG Levothyroxine Sodium (Synthroid Tab) 125 mcg DAILYBB PO 01/14/18 06:00 02/13/18 06:59 01/14/18 06:30 125 MCG Multivitamins/ Minerals (Multivitamin W/ Minerals Tab) 1 tab QAM PO 01/14/18 09:00 02/13/18 08:59 01/14/18 08:52 1 TAB Tramadol HCl (Ultram Tab) 25 mg Q6H PRN PO 01/13/18 22:15 02/12/18 22:14 Prochlorperazine Edisylate 5 mg/ Syringe 5 ml @ 5 mls/min Q6H PRN IV 01/13/18 22:15 02/12/18 22:14 Lorazepam (Ativan Inj) 0.5 mg Q4H PRN IV 01/13/18 22:15 02/12/18 22:14 Morphine Sulfate (MoRPHine SULFATE INJ) 4 mg Q3H PRN IV 01/13/18 22:15 01/27/18 22:14 Vancomycin HCl (Consult) 1 ea UD PRN N/A 01/15/18 09:00 02/14/18 08:59 Vancomycin HCl 1500 mg/Sodium Chloride 530 ml @ 200 mls/hr Q12H IV 01/14/18 12:00 02/25/18 11:59 01/14/18 12:22 200 MLS/HR Review of Systems Constitutional: + fever, + chills, + sweats, + weakness, + fatigue Eyes: No problem reported ENT: No problem reported Respiratory: No problem reported Cardiovascular: No problem reported Abdomen: + nausea Musculoskeletal: + joint pain, + muscle pain Genitourinary - Male: No problem reported Neurologic: + problem reported (See HPI) Psychiatric: No problem reported Endocrine: No problem reported Hematologic / Lymphatic: No problem reported Integumentary: + new/changing skin lesions Allergic / Immunologic: No problem reported Physical Exam Date Time Temp Pulse Resp B/P (MAP) Pulse Ox O2 Delivery O2 Flow Rate FiO2 01/14/18 13:00 36.5 90 18 127/83 (98) 97 Room Air 01/14/18 12:11 37.2 87 18 140/88 (105) 87 01/14/18 11:49 82 16 133/86 (102) 96 Room Air 01/14/18 11:39 80 14 131/86 (101) 93 Room Air 01/14/18 11:29 83 16 137/87 (104) 94 Room Air 01/14/18 11:19 83 12 133/87 (102) 97 Nasal Cannula 2 01/14/18 11:17 Nasal Cannula 2 01/14/18 11:15 77 20 150/93 97 Nasal Cannula 2 01/14/18 11:10 74 16 141/91 96 Nasal Cannula 2 01/14/18 11:05 80 16 133/85 97 Nasal Cannula 2 01/14/18 11:00 75 20 140/86 97 Nasal Cannula 2 01/14/18 10:55 80 12 136/89 96 Nasal Cannula 2 01/14/18 10:53 Nasal Cannula 2 01/14/18 10:50 81 18 128/92 97 Nasal Cannula 2 01/14/18 10:45 80 16 123/90 99 Nasal Cannula 2 01/14/18 10:43 83 16 137/89 98 Nasal Cannula 2 01/14/18 09:59 37.2 81 12 131/86 (101) 97 Room Air 01/14/18 08:00 Room Air 01/14/18 04:23 Room Air 01/14/18 03:04 37.5 82 18 123/73 (90) 96 Room Air 01/13/18 23:35 36.8 83 18 146/100 96 Room Air 01/13/18 22:16 37.2 88 18 122/72 95 Room Air 01/13/18 20:16 100 18 122/72 95 Room Air 01/13/18 18:19 88 18 125/76 95 Room Air 01/13/18 18:00 95 Room Air 01/13/18 17:08 37.3 109 18 140/81 95 Room Air General Appearance: WD/WN, no apparent distress Head: normocephalic, atraumatic Eyes: normal inspection, EOMI, sclerae normal ENT: normal ENT inspection, hearing grossly normal, pharynx normal Neck: supple, no adenopathy, thyroid normal, trachea midline Respiratory/Chest: chest non-tender, lungs clear, normal breath sounds, no respiratory distress Cardiovascular: regular rate, rhythm, no gallop, no murmur Abdomen/GI: normal bowel sounds, non tender, soft, no organomegaly Back: normal inspection, no CVA tenderness Extremities/Musculoskelatal: no calf tenderness, normal capillary refill, non- tender Neurologic/Psych: alert, normal mood/affect, oriented x 3 Skin: normal color, + pertinent finding (Multiple purpuric lesions involving left hand, wrists, splinter hemorrhages left finger beds) Lymphatic: no adenopathy Laboratory Results Date/Time Source Procedure Growth Status 01/13/18 18:08 Blood Blood Culture Pending Received 01/13/18 18:00 Blood Blood Culture Pending Received 01/13/18 17:50 Blood Blood Culture Pending Received 01/13/18 17:40 Blood Blood Culture Pending Received 01/14/18 00:02 Stool C.difficile Toxin B Gene (PCR) - Final No C. difficile toxin B gene detected Complete Last 24 Hours Test 01/13/18 18:00 01/13/18 18:18 01/14/18 07:41 White Blood Count 15.31 K/uL 13.74 K/uL Red Blood Count 5.28 M/uL 4.74 M/uL Hemoglobin 17.1 g/dL 15.0 g/dL Hematocrit 47.9 % 43.1 % Mean Corpuscular Volume 90.7 fL 90.9 fL Mean Corpuscular Hemoglobin 32.4 pg 31.6 pg Mean Corpuscular Hemoglobin Concent 35.7 g/dl 34.8 g/dl Platelet Count 186 K/uL 173 K/uL Mean Platelet Volume 10.5 fL 10.4 fL Neutrophils (%) (Auto) 85.0 % 83.1 % Lymphocytes (%) (Auto) 8.2 % 8.2 % Monocytes (%) (Auto) 6.1 % 7.8 % Eosinophils (%) (Auto) 0.0 % 0.1 % Basophils (%) (Auto) 0.1 % 0.2 % Neutrophils # (Auto) 13.01 K/uL 11.41 K/uL Lymphocytes # (Auto) 1.26 K/uL 1.13 K/uL Monocytes # (Auto) 0.93 K/uL 1.07 K/uL Eosinophils # (Auto) 0.00 K/uL 0.02 K/uL Basophils # (Auto) 0.02 K/uL 0.03 K/uL RDW Standard Deviation 44.7 fL 45.2 fL RDW Coefficient of Variation 13.8 % 13.8 % Immature Granulocyte % (Auto) 0.6 % 0.6 % Immature Granulocyte # (Auto) 0.09 K/uL 0.08 K/uL Erythrocyte Sedimentation Rate 21 mm/hr Prothrombin Time 10.4 SECONDS Prothromb Time International Ratio 1.0 Activated Partial Thromboplast Time 31.1 SECONDS Partial Thromboplastin Ratio 1.2 Urine Color DK YELLOW Urine Appearance CLEAR Urine pH 5.0 Urine Specific [place] 1.027 Urine Protein 1+ Urine Glucose (UA) NEG Urine Ketones TRACE Urine Occult Blood NEG Urine Nitrite NEG Urine Bilirubin NEG Urine Urobilinogen NEG Urine Leukocyte Esterase NEG Urine WBC (Auto) 1-5 /hpf Urine RBC (Auto) 0-4 /hpf Urine Hyaline Casts (Auto) 1-5 /lpf Urine Epithelial Cells (Auto) 5-10 /lpf Urine Bacteria (Auto) NEG Sodium Level 136 mmol/L Potassium Level 3.9 mmol/L Chloride Level 102 mmol/L Carbon Dioxide Level 26 mmol/L Anion Gap 7.0 mmol/L Blood Urea Nitrogen 17 mg/dl Creatinine 1.00 mg/dl Est Creatinine Clear Calc Drug Dose 71.0 ml/min Estimated GFR () 88.0 Estimated GFR (Non- 75.9 BUN/Creatinine Ratio 16.6 Random Glucose 112 mg/dl Estimated Average Glucose 108 mg/dl Hemoglobin A1c 5.4 % Calcium Level 9.2 mg/dl Magnesium Level 2.1 mg/dl Total Bilirubin 0.8 mg/dl Aspartate Amino Transf (AST/SGOT) 19 U/L Alanine Aminotransferase (ALT/SGPT) 24 U/L Alkaline Phosphatase 68 U/L Total Creatine Kinase 73 U/L Creatine Kinase MB < 1.0 ng/ml Creatine Kinase MB Ratio Troponin I < 0.015 ng/ml C-Reactive Protein 12.00 mg/dl Total Protein 7.5 gm/dl Albumin 3.9 gm/dl Globulin 3.6 gm/dl Albumin/Globulin Ratio 1.1 Lipase 241 U/L Procalcitonin 0.12 ng/ml Lyme Disease IgG Antibody NEG Lyme Disease IgM Antibody NEG Bedside Lactic Acid Venous 0.79 mmol/L Assessment & Plan 72-year-old male with episode of MRSA associated olecranon bursitis several months ago with apparent resolution, now presents with febrile illness with echocardiogram consistent with endocarditis and physical picture of multiple emboli to the left arm and hand. Ceftriaxone will be added to vancomycin pending blood culture results to cover potential of gram-negative pathogen such as HACEK organisms. Watch closely for further embolic phenomena. Will follow.
[2018-01-14] MEDS: CEFTRIAXONE SOD INJ 2,000 MG in DEXTROSE 5% 50ML 50 ML IV SCH (16:27)
--- NOTE | 2018-01-14 18:48 | Progress Note ---
Medicine Progress Note Date & Time of Visit: Jan 14, 2018 at 18:21. Subjective Pt was seen and examined Lying in bed with no distress Pt continues to have fever He had WILLEM done today Denies any chest pain, palpitation, dizziness and SOB Objective Last 8 Hrs Date Time Temp Pulse Resp B/P (MAP) Pulse Ox O2 Delivery O2 Flow Rate FiO2 01/14/18 16:23 38.5 94 20 136/80 (98) 95 Room Air 01/14/18 16:00 95 Room Air 01/14/18 13:00 36.5 90 18 127/83 (98) 97 Room Air 01/14/18 12:11 37.2 87 18 140/88 (105) 87 01/14/18 11:49 82 16 133/86 (102) 96 Room Air 01/14/18 11:39 80 14 131/86 (101) 93 Room Air 01/14/18 11:29 83 16 137/87 (104) 94 Room Air 01/14/18 11:19 83 12 133/87 (102) 97 Nasal Cannula 2 01/14/18 11:17 Nasal Cannula 2 01/14/18 11:15 77 20 150/93 97 Nasal Cannula 2 01/14/18 11:10 74 16 141/91 96 Nasal Cannula 2 01/14/18 11:05 80 16 133/85 97 Nasal Cannula 2 01/14/18 11:00 75 20 140/86 97 Nasal Cannula 2 01/14/18 10:55 80 12 136/89 96 Nasal Cannula 2 01/14/18 10:53 Nasal Cannula 2 01/14/18 10:50 81 18 128/92 97 Nasal Cannula 2 01/14/18 10:45 80 16 123/90 99 Nasal Cannula 2 01/14/18 10:43 83 16 137/89 98 Nasal Cannula 2 Physical Exam: General- No acute distress Head- atraumatic Eyes- PERRL, EOMI ENT- oropharynx clear Neck- supple, no JVD Lungs- clear to auscultation Heart- regular rhythm; no murmur Abdomen- normal bowel sounds, soft Extremities-no calf tenderness Neuro- alert, oriented x 3; PERRL, EOMI; no facial palsy Skin- warm & dry Laboratory Results: Last 24 Hours Test 01/14/18 07:41 White Blood Count 13.74 K/uL Red Blood Count 4.74 M/uL Hemoglobin 15.0 g/dL Hematocrit 43.1 % Mean Corpuscular Volume 90.9 fL Mean Corpuscular Hemoglobin 31.6 pg Mean Corpuscular Hemoglobin Concent 34.8 g/dl Platelet Count 173 K/uL Mean Platelet Volume 10.4 fL Neutrophils (%) (Auto) 83.1 % Lymphocytes (%) (Auto) 8.2 % Monocytes (%) (Auto) 7.8 % Eosinophils (%) (Auto) 0.1 % Basophils (%) (Auto) 0.2 % Neutrophils # (Auto) 11.41 K/uL Lymphocytes # (Auto) 1.13 K/uL Monocytes # (Auto) 1.07 K/uL Eosinophils # (Auto) 0.02 K/uL Basophils # (Auto) 0.03 K/uL RDW Standard Deviation 45.2 fL RDW Coefficient of Variation 13.8 % Immature Granulocyte % (Auto) 0.6 % Immature Granulocyte # (Auto) 0.08 K/uL Date/Time Source Procedure Growth Status 01/14/18 00:02 Stool C.difficile Toxin B Gene (PCR) - Final No C. difficile toxin B gene detected Complete Assessment & Plan ENDOCARDITIS Present with fever/chills and osler's nodes/[place] lesions on the hand Recently completed treatment for shingles Hx of right septic olecranon bursitis in 08/29 with MRSA ECHO showed small linear echodensity noted in the long axis view on the noncoronary cusp of aortic valve IWLLEM performed today by Dr. Malhotra showed small mobile echodensity on the mitral valve consistent with small vegetation. and small linear echodensity on the aortic valve. ID on board recommended to continue Vanco and adding IV rocephin Procalcitonin normal Blood cx pending Will need a long course IV abx treatment Will get a PICC line once blood cx showed no growth Will need a repeat WILLME in 4-6 weeks to ensure stability. HYPOTHYROIDISM On levothyroxine HLD On atorvastatin DVT Prophylaxis On Lovenox sub q Code Status FULL CODE Current Inpatient Medications: Current Inpatient Medications Medications (Trade) Dose Ordered Sig/Yasmine Route Start Time Stop Time Status Last Admin Dose Admin Enoxaparin Sodium (Lovenox Inj) 40 mg Q24H SC 01/13/18 21:00 02/12/18 20:59 Potassium Chloride/Sodium Chloride 1,000 ml @ 60 mls/hr [id number] IV 01/13/18 23:45 02/12/18 23:44 01/14/18 00:47 60 MLS/HR Acetaminophen (Tylenol Tab) 650 mg Q4H PRN PO 01/13/18 22:15 02/12/18 22:14 01/14/18 16:27 650 MG Nitroglycerin (Nitrostat Tab) 0.4 mg UD PRN SL 01/13/18 22:15 02/12/18 22:14 Aspirin (Ecotrin Tab) 81 mg DAILY PO 01/14/18 09:00 02/13/18 08:59 01/14/18 08:52 81 MG Atorvastatin Calcium (Lipitor Tab) 10 mg QAM PO 01/14/18 09:00 02/13/18 08:59 01/14/18 08:52 10 MG Levothyroxine Sodium (Synthroid Tab) 125 mcg DAILYBB PO 01/14/18 06:00 02/13/18 06:59 01/14/18 06:30 125 MCG Multivitamins/ Minerals (Multivitamin W/ Minerals Tab) 1 tab QAM PO 01/14/18 09:00 02/13/18 08:59 01/14/18 08:52 1 TAB Tramadol HCl (Ultram Tab) 25 mg Q6H PRN PO 01/13/18 22:15 02/12/18 22:14 Prochlorperazine Edisylate 5 mg/ Syringe 5 ml @ 5 mls/min Q6H PRN IV 01/13/18 22:15 02/12/18 22:14 Lorazepam (Ativan Inj) 0.5 mg Q4H PRN IV 01/13/18 22:15 02/12/18 22:14 Morphine Sulfate (MoRPHine SULFATE INJ) 4 mg Q3H PRN IV 01/13/18 22:15 01/27/18 22:14 Vancomycin HCl (Consult) 1 ea UD PRN N/A 01/15/18 09:00 02/14/18 08:59 Vancomycin HCl 1500 mg/Sodium Chloride 530 ml @ 200 mls/hr Q12H IV 01/14/18 12:00 02/25/18 11:59 01/14/18 12:22 200 MLS/HR Ceftriaxone Sodium 2000 mg/ Dextrose 70 ml @ 100 mls/hr Q24H IV 01/14/18 16:30 02/25/18 16:29 01/14/18 16:27 100 MLS/HR
[2018-01-14] MEDS: ENOXAPARIN 40 MG/0.4 ML SYR SC SCH (20:32)
[2018-01-14] MEDS: LOPERAMIDE HCL 2 MG CAP PO PRN (22:00)
[2018-01-14] MEDS: LORAZEPAM 2 MG/ML 1 ML VIAL IV PRN (22:00)
[2018-01-15 00:43] VITALS: BP 134/87; PULSE 86; TEMP 37.5; O2SAT 96
[2018-01-15 03:34] VITALS: BP 112/67; PULSE 82; TEMP 37.5; O2SAT 95
[2018-01-15] MEDS: LEVOTHYROXINE 125 MCG TAB PO SCH (06:43)
[2018-01-15] MEDS: LOPERAMIDE HCL 2 MG CAP PO PRN (06:51)
[2018-01-15 07:10] LABS: HEMATOCRIT 41.8 % (42-52); HEMOGLOBIN 14.4 g/dL (14.0-18.0); MEAN CELL VOLUME 91.3 fL (80-100); MEAN CORPUSCULAR HEMOGLOBIN 31.4 pg (25-34); MEAN CORPUSCULAR HGB CONC 34.4 g/dl (32-36); MEAN PLATELET VOLUME 10.1 fL (7.4-10.4); PLATELET COUNT 168 K/uL (130-400); RED CELL DISTRIBUTION WIDTH CV 13.9 % (11.5-14.5); RED CELL DISTRIBUTION WIDTH SD 45.3 fL (36.4-46.3)
[2018-01-15 07:44] LABS: CALCIUM 8.2 mg/dl (8.5-10.1); CREATININE 0.8 mg/dl (0.60-1.40); POTASSIUM 3.7 mmol/L (3.5-5.1)
[2018-01-15 08:10] VITALS: BP 130/85; PULSE 83; TEMP 36.8; O2SAT 95
[2018-01-15] MEDS: CEROVITE ADV FORMULA TAB PO SCH (08:42)
[2018-01-15] MEDS: ATORVASTATIN 10 MG TAB PO SCH (08:42)
[2018-01-15] MEDS: ASPIRIN 81 MG ECTAB PO SCH (08:42)
[2018-01-15] MEDS ORDERED: VANCOMYCIN CONSULT ACTIVE PRN (09:00)
[2018-01-15] MEDS ORDERED: VANCOMYCIN TROUGH ONE (11:30)
[2018-01-15] MEDS: VANCOMYCIN IV 1,500 MG in SODIUM CHLORIDE 0.9% 500ML 500 ML IV SCH ×2 (11:58→22:36)
[2018-01-15] MEDS: NSS + 20MEQ KCL 1000ML 1,000 ML IV SCH (11:59)
--- NOTE | 2018-01-15 13:16 | Pharmacy Progress Note ---
Pharmacy Abx Dose Short Note Date of Service Jan 15, 2018. Assessment & Plan Assessment * 72 year old male receiving VANCOMYCIN IV (dosing per pharmacy) + CEFTRIAXONE IV for treatment of endocarditis * Pt has h/o R elbow cellulitis / septic bursitis. * Prior cx's of R elbow reviewed * 09/09/17 abscess grew MRSA: sensitive daptomycin and vancomycin (vanco JAMSHID = 2 ) * 11/10/17 synovial fluid grew CoNS oxacillin resistant: sensitive to daptomycin , and reported sensitive to vancomycin however JAMSHID of 4 would not be achievable w/ conventional vancomycin dosing strategies. * Day # 3 of antimicrobial therapy * Echo interpreted as mobile echodensity on mitral valve that could be consistent w/ vegetation, also an echodensity was seen on AVR that could also represent vegetation vs nonvascular strand * Pt already w/ evidence of multiple emboli to L arm and hand Plan Vancomycin * Trough level of 9.3 mcg/mL is subtherapeutic. Level was drawn prior to achieving steady-state however as only 2 maintenance doses have been given thus far. I anticipate the level to rise w/ repeat dosing however likely will not achieve our ultimate goal without an increase in dose. * Change to 1500 mg IV (~18mg/kg) every 10 hours * Goal trough level for endocarditis : 15 to 20 mcg/mL - closer to 20 in this case given the JAMSHID's of organisms cultured in the past * Trough level ordered for: 01/16/18 w/ 3rd dose of new regimen * Might wish to consider use of daptomycin instead given already aggressive vancomycin dosing regimen for a 72yo and h/o cx's with vancomycin JAMSHID's of 2 or greater Pharmacy will continue to follow and will adjust dose/frequency as necessary. Thank you.
[2018-01-15 13:52] VITALS: BP 124/80; PULSE 73; TEMP 37.1; O2SAT 96
[2018-01-15] MEDS: CEFTRIAXONE SOD INJ 2,000 MG in DEXTROSE 5% 50ML 50 ML IV SCH (15:47)
[2018-01-15 15:57] VITALS: BP 152/95; PULSE 72; TEMP 36.7; O2SAT 97
--- NOTE | 2018-01-15 16:01 | Cardiology Follow-Up ---
Subjective General Date of Service: Jan 15, 2018. Pt evaluation today including: conversation w/ patient, physical exam, chart review, lab review, review of studies, review of inpatient medication list History of Present Illness The patient is a 72 year old male seen in follow up. Reports subjective chills yesterday with tmax of 38.5 C at 16:45. Denies CP or SOB. Reports dental cleaning approximately 5 days prior to symptom onset. Offers no other complaints. Allergies Coded Allergies: No Known Allergies (Unverified , 01/13/18) Social History Smoking Status: Never Smoker Hx Tobacco Use In Past Year?: No Hx Alcohol Use - Type And Amou: Yes (Wine and Martini 2 per day) Hx Substance Use - Type And Am: No Problem List Medical Problems: (1) Fever Status: Acute (2) Kidney stone Status: Acute (3) Rash Status: Acute (4) Renal colic Status: Acute (5) Right flank pain Status: Acute Review of Systems Respiratory: No cough, No wheezing, No shortness of breath, No dyspnea at rest , No hemoptysis Cardiac: No chest pain, No PND, No edema, No claudication, No palpitations Physical Exam Vital Signs Last Vital Signs Documentation Date Time Temp Pulse Resp B/P (MAP) Pulse Ox O2 Delivery O2 Flow Rate FiO2 01/15/18 13:52 37.1 73 20 124/80 (95) 96 Room Air 01/14/18 11:19 2 Physical Exam Constitutional: General Apperance: heathly-appearing Level of Distress: NAD Neck: supple, trachea midline Lungs: Respiratory effort: no dyspnea Auscultation: breath sounds normal, no wheezing, no rales/crackles, no rhonchi Cardiovascular: Heart Auscultation: RRR, normal S1, normal S2, no murmurs Peripheral Pulses: Radial Pulse: normal on the left, normal on the right Abdomen: Bowel Sounds: normal Inspection & Palpation: soft, non-distended, no tenderness, guarding & rebound Extremities: no edema, pertinent finding ( purpuric blistering rash limited to left hand) Neurologic: Gait & Station: pertinent finding (No focal motor deficit.) Cranial Nerves: grossly intact Assessment and Plan Assessment and Plan Final Impression: 1. Mitral valve endocarditis - Blood cultures negative x 48 hours - recurrent fever 01/14/2018 2. History of right-sided olecranon MRSA bursitis Plan/recommendations: Continue intravenous antibiotic therapy 6 weeks. Antibiotic spectrum will be narrowed pending review of blood culture results and infectious disease recommendations. Continue to monitor for signs of recurrent embolic phenomenon. Laboratory Results Last 24 Hours Test 01/15/18 06:53 01/15/18 11:24 White Blood Count 11.00 K/uL Red Blood Count 4.58 M/uL Hemoglobin 14.4 g/dL Hematocrit 41.8 % Mean Corpuscular Volume 91.3 fL Mean Corpuscular Hemoglobin 31.4 pg Mean Corpuscular Hemoglobin Concent 34.4 g/dl RDW Standard Deviation 45.3 fL RDW Coefficient of Variation 13.9 % Platelet Count 168 K/uL Mean Platelet Volume 10.1 fL Sodium Level 139 mmol/L Potassium Level 3.7 mmol/L Chloride Level 107 mmol/L Carbon Dioxide Level 26 mmol/L Anion Gap 6.0 mmol/L Blood Urea Nitrogen 13 mg/dl Creatinine 0.80 mg/dl Est Creatinine Clear Calc Drug Dose 88.7 ml/min Estimated GFR () 104.9 Estimated GFR (Non- 90.5 BUN/Creatinine Ratio 15.9 Random Glucose 89 mg/dl Calcium Level 8.2 mg/dl Vancomycin Level Trough 9.3 mcg/ml
--- NOTE | 2018-01-15 18:26 | Progress Note ---
Medicine Progress Note Date & Time of Visit: Jan 15, 2018 at 18:23. Subjective Pt was seen and examined Lying in bed bed with no distress No fever in the last 24 hr Denies any chest pain, palpitation, dizziness and SOB Objective Last 8 Hrs Date Time Temp Pulse Resp B/P (MAP) Pulse Ox O2 Delivery O2 Flow Rate FiO2 01/15/18 15:57 36.7 72 16 152/95 (114) 97 Room Air 01/15/18 13:52 37.1 73 20 124/80 (95) 96 Room Air Physical Exam: General- No acute distress Head- atraumatic Eyes- PERRL, EOMI ENT- oropharynx clear Neck- supple, no JVD Lungs- clear to auscultation Heart- regular rhythm; no murmur Abdomen- normal bowel sounds, soft Extremities-no calf tenderness Neuro- alert, oriented x 3; PERRL, EOMI; no facial palsy Skin- warm & dry Laboratory Results: Last 24 Hours Test 01/15/18 06:53 01/15/18 11:24 White Blood Count 11.00 K/uL Red Blood Count 4.58 M/uL Hemoglobin 14.4 g/dL Hematocrit 41.8 % Mean Corpuscular Volume 91.3 fL Mean Corpuscular Hemoglobin 31.4 pg Mean Corpuscular Hemoglobin Concent 34.4 g/dl RDW Standard Deviation 45.3 fL RDW Coefficient of Variation 13.9 % Platelet Count 168 K/uL Mean Platelet Volume 10.1 fL Sodium Level 139 mmol/L Potassium Level 3.7 mmol/L Chloride Level 107 mmol/L Carbon Dioxide Level 26 mmol/L Anion Gap 6.0 mmol/L Blood Urea Nitrogen 13 mg/dl Creatinine 0.80 mg/dl Est Creatinine Clear Calc Drug Dose 88.7 ml/min Estimated GFR () 104.9 Estimated GFR (Non- 90.5 BUN/Creatinine Ratio 15.9 Random Glucose 89 mg/dl Calcium Level 8.2 mg/dl Vancomycin Level Trough 9.3 mcg/ml Assessment & Plan ENDOCARDITIS Present with fever/chills and osler's nodes/Janeway lesions on the hand Recently completed treatment for shingles 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 Malhotra showed small mobile echodensity on the mitral valve consistent with small vegetation. and small linear echodensity on the aortic valve. ID on board recommended to continue Vanco and adding IV Rocephin Procalcitonin normal Blood cx no growth Will need a long course IV abx treatment for 6 weeks Will get a PICC line once blood cx showed no growth Will need a repeat WILLEM in 4-6 weeks to ensure stability. HYPOTHYROIDISM On levothyroxine HLD On atorvastatin DVT Prophylaxis On Lovenox sub q Code Status FULL CODE Current Inpatient Medications: Current Inpatient Medications Medications (Trade) Dose Ordered Sig/Yasmine Route Start Time Stop Time Status Last Admin Dose Admin Enoxaparin Sodium (Lovenox Inj) 40 mg Q24H SC 01/13/18 21:00 02/12/18 20:59 01/14/18 20:32 40 MG Acetaminophen (Tylenol Tab) 650 mg Q4H PRN PO 01/13/18 22:15 02/12/18 22:14 01/14/18 16:27 650 MG Nitroglycerin (Nitrostat Tab) 0.4 mg UD PRN SL 01/13/18 22:15 02/12/18 22:14 Aspirin (Ecotrin Tab) 81 mg DAILY PO 01/14/18 09:00 02/13/18 08:59 01/15/18 08:42 81 MG Atorvastatin Calcium (Lipitor Tab) 10 mg QAM PO 01/14/18 09:00 02/13/18 08:59 01/15/18 08:42 10 MG Levothyroxine Sodium (Synthroid Tab) 125 mcg DAILYBB PO 01/14/18 06:00 02/13/18 06:59 01/15/18 06:43 125 MCG Multivitamins/ Minerals (Multivitamin W/ Minerals Tab) 1 tab QAM PO 01/14/18 09:00 02/13/18 08:59 01/15/18 08:42 1 TAB Tramadol HCl (Ultram Tab) 25 mg Q6H PRN PO 01/13/18 22:15 02/12/18 22:14 01/14/18 20:27 25 MG Prochlorperazine Edisylate 5 mg/ Syringe 5 ml @ 5 mls/min Q6H PRN IV 01/13/18 22:15 02/12/18 22:14 Lorazepam (Ativan Inj) 0.5 mg Q4H PRN IV 01/13/18 22:15 02/12/18 22:14 01/14/18 22:00 0.5 MG Morphine Sulfate (MoRPHine SULFATE INJ) 4 mg Q3H PRN IV 01/13/18 22:15 01/27/18 22:14 Vancomycin HCl (Consult) 1 ea UD PRN N/A 01/15/18 09:00 02/14/18 08:59 Ceftriaxone Sodium 2000 mg/ Dextrose 70 ml @ 100 mls/hr Q24H IV 01/14/18 16:30 02/25/18 16:29 01/15/18 15:47 100 MLS/HR Loperamide HCl (Imodium Cap) 2 mg UD PRN PO 01/14/18 21:30 02/13/18 21:29 01/15/18 06:51 2 MG Vancomycin HCl 1500 mg/Sodium Chloride 530 ml @ 200 mls/hr Q10H IV 01/15/18 22:00 02/26/18 21:59
[2018-01-15 19:23] VITALS: BP 120/74; PULSE 70; TEMP 37; O2SAT 97
[2018-01-15] MEDS: LORAZEPAM 2 MG/ML 1 ML VIAL IV PRN (22:36)
[2018-01-15] MEDS: ENOXAPARIN 40 MG/0.4 ML SYR SC SCH (22:36)
[2018-01-16] VITALS (7 sets, daily range): BP systolic 111–138; BP diastolic 72–89; PULSE 69–77; TEMP 36.3–37.3; O2SAT 94–98
[2018-01-16] MEDS: LEVOTHYROXINE 125 MCG TAB PO SCH (06:03)
[2018-01-16 07:02] LABS: CREATININE 0.74 mg/dl (0.60-1.40)
[2018-01-16] MEDS: CEROVITE ADV FORMULA TAB PO SCH (07:54)
[2018-01-16] MEDS: VANCOMYCIN IV 1,500 MG in SODIUM CHLORIDE 0.9% 500ML 500 ML IV SCH ×2 (07:54→17:53)
[2018-01-16] MEDS: ASPIRIN 81 MG ECTAB PO SCH (07:55)
[2018-01-16] MEDS: ATORVASTATIN 10 MG TAB PO SCH (07:55)
--- NOTE | 2018-01-16 10:49 | Cardiology Follow-Up ---
Subjective General Date of Service: Jan 16, 2018. Pt evaluation today including: conversation w/ patient, physical exam, chart review, lab review, review of studies, review of inpatient medication list History of Present Illness The patient is a 72 year old male seen in follow-up. 1 out of 4 blood cultures is positive for gram-negative bacilli. No recurrent fevers overnight. No new skin lesions of his left upper extremity. Denies chest pain or shortness of breath. Telemetry demonstrates sinus rhythm. Tolerating current medications. Allergies Coded Allergies: No Known Allergies (Unverified , 01/13/18) Social History Smoking Status: Never Smoker Hx Tobacco Use In Past Year?: No Hx Alcohol Use - Type And Amou: Yes (Wine and Martini 2 per day) Hx Substance Use - Type And Am: No Problem List Medical Problems: (1) Fever Status: Acute (2) Kidney stone Status: Acute (3) Rash Status: Acute (4) Renal colic Status: Acute (5) Right flank pain Status: Acute Review of Systems Respiratory: No cough, No sputum, No wheezing, No shortness of breath, No dyspnea at rest, No hemoptysis Cardiac: No chest pain, No orthopnea, No PND, No edema, No claudication, No palpitations Physical Exam Vital Signs Last Vital Signs Documentation Date Time Temp Pulse Resp B/P (MAP) Pulse Ox O2 Delivery O2 Flow Rate FiO2 01/16/18 08:00 Room Air 01/16/18 07:03 36.7 72 20 135/87 (103) 97 01/14/18 11:19 2 Physical Exam Constitutional: General Apperance: heathly-appearing Level of Distress: NAD Head: normocephalic, atraumatic Neck: supple, trachea midline Lungs: Respiratory effort: no dyspnea Auscultation: breath sounds normal, no wheezing, no rales/crackles, no rhonchi Cardiovascular: Heart Auscultation: RRR, normal S1, normal S2, no murmurs Peripheral Pulses: Radial Pulse: normal on the left, normal on the right Abdomen: Bowel Sounds: normal Inspection & Palpation: soft, non-distended, no tenderness, guarding & rebound Extremities: no edema, pertinent finding ( purpuric blistering rash limited to left hand) Neurologic: Gait & Station: pertinent finding (No focal motor deficit.) Cranial Nerves: grossly intact Assessment and Plan Assessment and Plan Final Impression: 1. Mitral valve endocarditis - 06/17 blood cultures positive for gram-negative bacilli - recurrent fever 01/14/2018 without recurrence 2. History of right-sided olecranon MRSA bursitis Plan/recommendations: Continue intravenous antibiotic therapy 6 weeks. Antibiotic spectrum will be narrowed pending review of blood culture results and infectious disease recommendations. Continue to monitor for signs of recurrent embolic phenomenon. Laboratory Results Last 24 Hours Test 01/15/18 11:24 01/16/18 05:59 Vancomycin Level Trough 9.3 mcg/ml Creatinine 0.74 mg/dl Est Creatinine Clear Calc Drug Dose 95.9 ml/min Estimated GFR () 108.3 Estimated GFR (Non- 93.5
[2018-01-16] MEDS: CEFTRIAXONE SOD INJ 2,000 MG in DEXTROSE 5% 50ML 50 ML IV SCH (15:14)
[2018-01-16] MEDS ORDERED: VANCOMYCIN TROUGH ONE (17:30)
--- NOTE | 2018-01-16 18:11 | Infectious Disease Progress Nt ---
Progress Note Date of Service Jan 16, 2018. Subjective Pt evaluation today including: physical exam, chart review, lab review, review of studies, conversation w/ managed services consultant, review of inpatient medication list Patient continues to show improvement from admission, feeling better, remains afebrile. Blood cultures now growing gram-negative bacilli. All Other Systems: Reviewed and Negative Medications Current Inpatient Medications Medications (Trade) Dose Ordered Sig/Yasmine Route Start Time Stop Time Status Last Admin Dose Admin Enoxaparin Sodium (Lovenox Inj) 40 mg Q24H SC 01/13/18 21:00 02/12/18 20:59 01/15/18 22:36 40 MG Acetaminophen (Tylenol Tab) 650 mg Q4H PRN PO 01/13/18 22:15 02/12/18 22:14 01/14/18 16:27 650 MG Nitroglycerin (Nitrostat Tab) 0.4 mg UD PRN SL 01/13/18 22:15 02/12/18 22:14 Aspirin (Ecotrin Tab) 81 mg DAILY PO 01/14/18 09:00 02/13/18 08:59 01/16/18 07:55 81 MG Atorvastatin Calcium (Lipitor Tab) 10 mg QAM PO 01/14/18 09:00 02/13/18 08:59 01/16/18 07:55 10 MG Levothyroxine Sodium (Synthroid Tab) 125 mcg DAILYBB PO 01/14/18 06:00 02/13/18 06:59 01/16/18 06:03 125 MCG Multivitamins/ Minerals (Multivitamin W/ Minerals Tab) 1 tab QAM PO 01/14/18 09:00 02/13/18 08:59 01/16/18 07:54 1 TAB Tramadol HCl (Ultram Tab) 25 mg Q6H PRN PO 01/13/18 22:15 02/12/18 22:14 01/14/18 20:27 25 MG Prochlorperazine Edisylate 5 mg/ Syringe 5 ml @ 5 mls/min Q6H PRN IV 01/13/18 22:15 02/12/18 22:14 Lorazepam (Ativan Inj) 0.5 mg Q4H PRN IV 01/13/18 22:15 02/12/18 22:14 01/15/18 22:36 0.5 MG Morphine Sulfate (MoRPHine SULFATE INJ) 4 mg Q3H PRN IV 01/13/18 22:15 01/27/18 22:14 Vancomycin HCl (Consult) 1 ea UD PRN N/A 01/15/18 09:00 02/14/18 08:59 Ceftriaxone Sodium 2000 mg/ Dextrose 70 ml @ 100 mls/hr Q24H IV 01/14/18 16:30 02/25/18 16:29 01/16/18 15:14 100 MLS/HR Loperamide HCl (Imodium Cap) 2 mg UD PRN PO 01/14/18 21:30 02/13/18 21:29 01/15/18 06:51 2 MG Vancomycin HCl 1500 mg/Sodium Chloride 530 ml @ 200 mls/hr Q10H IV 01/15/18 22:00 02/26/18 21:59 01/16/18 17:53 200 MLS/HR Objective Vital Signs Date Time Temp Pulse Resp B/P (MAP) Pulse Ox O2 Delivery O2 Flow Rate FiO2 01/16/18 14:55 36.3 71 20 132/89 (103) 98 Room Air 01/16/18 11:28 36.9 69 20 138/84 (102) 98 Room Air 01/16/18 08:00 Room Air 01/16/18 07:03 36.7 72 20 135/87 (103) 97 Room Air 01/16/18 03:15 37.0 72 16 121/81 (94) 96 Room Air 01/16/18 00:01 37.1 70 18 125/76 (92) 96 01/15/18 20:00 Room Air 01/15/18 19:23 37.0 70 16 120/74 (89) 97 Room Air Physical Exam General Appearance: WD/WN, no apparent distress Eyes: normal inspection, EOMI, sclerae normal ENT: normal ENT inspection, pharynx normal Neck: supple, no adenopathy, thyroid normal, trachea midline Respiratory/Chest: chest non-tender, lungs clear, normal breath sounds, no respiratory distress Cardiovascular: regular rate, rhythm, no gallop, + systolic murmur Abdomen: normal bowel sounds, non tender, soft, no organomegaly Extremities: non-tender, no calf tenderness Neurologic/Psychiatric: alert, oriented x 3 Skin: normal color, + pertinent finding (No obvious new embolic lesions) Lymphatic: no adenopathy Laboratory Results RUN DATE: 01/16/18 [facility] LAB PAGE 1 RUN TIME: 1514 Specimen Inquiry PATIENT: EZEKIEL OTERO LOC: [facility] U # : [id number] AGE/SX: 72/M ROOM: [facility] REG : 01/13/[address]: Bren Puentes M.D. : 1945 BED: 1 DIS : STATUS: ADM IN TLOC: SPEC #: [id number] DWIGHT: 01/13/18 STATUS: RES REQ #: [id number] RECD: 01/13/[address]: Brian Pérez DO SOURCE: BLOOD ENTR: 01/13/18-[address]: Arnulfo Valdez M.D. [facility]: ORDERED: BLOOD CULTURE Procedure Result Verified Site BLD CULT Preliminary 01/16/18-8304 Organism 1 GRAM NEGATIVE BACILLI SENS SENSITIVITY TO FOLLOW Phoned Positive Blood Culture Gram Stain Report to CHRISTI SIMPSON on 01/16/18 At 0743 By NAYA. Results were verbalized back to NAYA. Last 24 Hours Test 01/16/18 05:59 01/16/18 17:21 Creatinine 0.74 mg/dl Est Creatinine Clear Calc Drug Dose 95.9 ml/min Estimated GFR () 108.3 Estimated GFR (Non- 93.5 Assessment and Plan 72-year-old male with episode of MRSA associated olecranon bursitis several months ago with apparent resolution, presents with febrile illness with echocardiogram consistent with endocarditis and physical picture of multiple emboli to the left arm and hand. One blood culture positive for gram-negative bacilli,worry about possibility of HACEK pathogen. To continue on ceftriaxone pending final ID/sensitivities.
--- NOTE | 2018-01-16 18:32 | Pharmacy Progress Note ---
Pharmacy Abx Dose Short Note Date of Service Jan 16, 2018. Assessment & Plan Assessment 72 year old male receiving Vancomycin for treatment of Endocarditis Day # 4 of antimicrobial therapy. Plan Vancomycin * Trough level of 15.2 mcg/mL is therapeutic. * Continue dose of Vancomycin 1500 mg IV every 10 hours. * Goal trough level for Endocarditis: 15 to 20 mcg/mL Pharmacy will continue to follow and will adjust dose/frequency as necessary. Thank you.
--- NOTE | 2018-01-16 18:50 | Progress Note ---
Medicine Progress Note Date & Time of Visit: Jan 16, 2018 at 18:36. Subjective Pt was seen and examined Lying in bed with no distress Pt said that he feels fine He said that he was hoping to be discharged today But he was a little disappointed when his blood cx was positive Denies any fever, chest pain, palpitation, dizziness and SOB Objective Last 8 Hrs Date Time Temp Pulse Resp B/P (MAP) Pulse Ox O2 Delivery O2 Flow Rate FiO2 01/16/18 14:55 36.3 71 20 132/89 (103) 98 Room Air 01/16/18 11:28 36.9 69 20 138/84 (102) 98 Room Air Physical Exam: General- No acute distress Head- atraumatic Eyes- PERRL, EOMI ENT- oropharynx clear Neck- supple, no JVD Lungs- clear to auscultation Heart- regular rhythm; no murmur Abdomen- normal bowel sounds, soft Extremities-no calf tenderness Neuro- alert, oriented x 3; PERRL, EOMI; no facial palsy Skin- warm & dry Laboratory Results: Last 24 Hours Test 01/16/18 05:59 01/16/18 17:21 Creatinine 0.74 mg/dl Est Creatinine Clear Calc Drug Dose 95.9 ml/min Estimated GFR () 108.3 Estimated GFR (Non- 93.5 Vancomycin Level Trough 15.2 mcg/ml Date/Time Source Procedure Growth Status 01/16/18 13:38 Blood Blood Culture Pending Received 01/16/18 13:12 Blood Blood Culture Pending Received Assessment & Plan ENDOCARDITIS Present with fever/chills and osler's nodes/Janeway lesions on the hand Recently completed treatment for shingles 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 Malhotra showed small mobile echodensity on the mitral valve consistent with small vegetation. and small linear echodensity on the aortic valve. ID on board recommended to continue Vanco and adding IV Rocephin Procalcitonin normal Blood cx no growth Will need a long course IV abx treatment for 6 weeks Will get a PICC line once blood cx showed no growth Will need a repeat WILLEM in 4-6 weeks to ensure stability. 01/16 Blood cx positive for gram negative bacilli (1 out 8 bottles) Might be related to one of the organism fom the HACEK group Pt said that he had dental work done 5 days before onset symptoms Case discussed with ID recommended to continue Rocephin and Vanco IV Repeat blood cx Will need a long course IV abx treatment for 6 weeks Will get a PICC line once blood cx showed no growth Will need a repeat WILLEM in 4-6 weeks to ensure stability. HYPOTHYROIDISM On levothyroxine HLD On atorvastatin DVT Prophylaxis On Lovenox sub q Code Status FULL CODE Current Inpatient Medications: Current Inpatient Medications Medications (Trade) Dose Ordered Sig/Yasmine Route Start Time Stop Time Status Last Admin Dose Admin Enoxaparin Sodium (Lovenox Inj) 40 mg Q24H SC 01/13/18 21:00 02/12/18 20:59 01/15/18 22:36 40 MG Acetaminophen (Tylenol Tab) 650 mg Q4H PRN PO 01/13/18 22:15 02/12/18 22:14 01/14/18 16:27 650 MG Nitroglycerin (Nitrostat Tab) 0.4 mg UD PRN SL 01/13/18 22:15 02/12/18 22:14 Aspirin (Ecotrin Tab) 81 mg DAILY PO 01/14/18 09:00 02/13/18 08:59 01/16/18 07:55 81 MG Atorvastatin Calcium (Lipitor Tab) 10 mg QAM PO 01/14/18 09:00 02/13/18 08:59 01/16/18 07:55 10 MG Levothyroxine Sodium (Synthroid Tab) 125 mcg DAILYBB PO 01/14/18 06:00 02/13/18 06:59 01/16/18 06:03 125 MCG Multivitamins/ Minerals (Multivitamin W/ Minerals Tab) 1 tab QAM PO 01/14/18 09:00 02/13/18 08:59 01/16/18 07:54 1 TAB Tramadol HCl (Ultram Tab) 25 mg Q6H PRN PO 01/13/18 22:15 02/12/18 22:14 01/14/18 20:27 25 MG Prochlorperazine Edisylate 5 mg/ Syringe 5 ml @ 5 mls/min Q6H PRN IV 01/13/18 22:15 02/12/18 22:14 Lorazepam (Ativan Inj) 0.5 mg Q4H PRN IV 01/13/18 22:15 02/12/18 22:14 01/15/18 22:36 0.5 MG Morphine Sulfate (MoRPHine SULFATE INJ) 4 mg Q3H PRN IV 01/13/18 22:15 01/27/18 22:14 Vancomycin HCl (Consult) 1 ea UD PRN N/A 01/15/18 09:00 02/14/18 08:59 Ceftriaxone Sodium 2000 mg/ Dextrose 70 ml @ 100 mls/hr Q24H IV 01/14/18 16:30 02/25/18 16:29 01/16/18 15:14 100 MLS/HR Loperamide HCl (Imodium Cap) 2 mg UD PRN PO 01/14/18 21:30 02/13/18 21:29 01/15/18 06:51 2 MG Vancomycin HCl 1500 mg/Sodium Chloride 530 ml @ 200 mls/hr Q10H IV 01/15/18 22:00 02/26/18 21:59 01/16/18 17:53 200 MLS/HR
[2018-01-16] MEDS: LORAZEPAM 2 MG/ML 1 ML VIAL IV PRN (22:02)
[2018-01-16] MEDS: ENOXAPARIN 40 MG/0.4 ML SYR SC SCH (22:03)
[2018-01-17] VITALS (7 sets, daily range): BP systolic 132–147; BP diastolic 87–97; PULSE 64–78; TEMP 36.3–37; O2SAT 94–98
[2018-01-17] MEDS: VANCOMYCIN IV 1,500 MG in SODIUM CHLORIDE 0.9% 500ML 500 ML IV SCH (04:00)
[2018-01-17] MEDS: LEVOTHYROXINE 125 MCG TAB PO SCH (06:29)
[2018-01-17 06:35] LABS: BASO % 0.6 %; BASO ABS # 0.05 K/uL (0-0.2); EOS % 2.7 %; EOS ABS # 0.23 K/uL (0-0.5); HEMATOCRIT 42.6 % (42-52); HEMOGLOBIN 14.9 g/dL (14.0-18.0); IG# 0.19 K/uL (0.00-0.02); LYMPH % 20.6 %; LYMPH ABS # 1.73 K/uL (1.2-3.4); MEAN CELL VOLUME 90.3 fL (80-100); MEAN CORPUSCULAR HEMOGLOBIN 31.6 pg (25-34); MEAN PLATELET VOLUME 9.8 fL (7.4-10.4); MONO % 12.1 %; MONO ABS # 1.01 K/uL (0.11-0.59); NEUT % 61.7 %; NEUT ABS # 5.17 K/uL (1.4-6.5); PLATELET COUNT 216 K/uL (130-400); RED CELL DISTRIBUTION WIDTH CV 13.5 % (11.5-14.5); WHITE BLOOD COUNT 8.38 K/uL (4.8-10.8)
[2018-01-17 07:06] LABS: CALCIUM 8.4 mg/dl (8.5-10.1); CREATININE 0.88 mg/dl (0.60-1.40); POTASSIUM 4.1 mmol/L (3.5-5.1)
[2018-01-17] MEDS: ASPIRIN 81 MG ECTAB PO SCH (07:57)
[2018-01-17] MEDS: CEROVITE ADV FORMULA TAB PO SCH (07:57)
[2018-01-17] MEDS: ATORVASTATIN 10 MG TAB PO SCH (07:57)
--- NOTE | 2018-01-17 09:57 | Cardiology Follow-Up ---
Subjective General Date of Service: Jan 17, 2018. Pt evaluation today including: conversation w/ patient, physical exam, chart review, lab review, review of studies, review of inpatient medication list History of Present Illness The patient is a 72 year old male seen in follow-up. Feeling well from a cardiovascular perspective. No fevers over the past 24 hours. Gram-negative rods growing in 3 bottles. Patient offers no complaints. Sinus rhythm on telemetry. Allergies Coded Allergies: No Known Allergies (Unverified , 01/13/18) Social History Smoking Status: Never Smoker Hx Tobacco Use In Past Year?: No Hx Alcohol Use - Type And Amou: Yes (Wine and Martini 2 per day) Hx Substance Use - Type And Am: No Problem List Medical Problems: (1) Fever Status: Acute (2) Kidney stone Status: Acute (3) Rash Status: Acute (4) Renal colic Status: Acute (5) Right flank pain Status: Acute Review of Systems Respiratory: No cough, No wheezing, No shortness of breath, No dyspnea on exertion, No dyspnea at rest, No hemoptysis Cardiac: No chest pain, No orthopnea, No PND, No edema, No claudication, No palpitations Physical Exam Vital Signs Last Vital Signs Documentation Date Time Temp Pulse Resp B/P (MAP) Pulse Ox O2 Delivery O2 Flow Rate FiO2 01/17/18 08:23 Room Air 01/17/18 07:35 36.7 69 18 147/97 (114) 94 01/14/18 11:19 2 Physical Exam Constitutional: General Apperance: heathly-appearing Level of Distress: NAD Head: normocephalic, atraumatic Neck: supple, trachea midline Lungs: Respiratory effort: no dyspnea Auscultation: breath sounds normal, no wheezing, no rales/crackles, no rhonchi Cardiovascular: Heart Auscultation: RRR, normal S1, normal S2, no murmurs Peripheral Pulses: Radial Pulse: normal on the left, normal on the right Abdomen: Bowel Sounds: normal Inspection & Palpation: soft, non-distended, no tenderness, guarding & rebound Extremities: no edema, pertinent finding ( purpuric blistering rash limited to left hand) Neurologic: Gait & Station: pertinent finding (No focal motor deficit.) Cranial Nerves: grossly intact Assessment and Plan Assessment and Plan Final Impression: 1. Mitral valve endocarditis - HACEK suspected with 3/4 blood cultures positive for gram-negative bacilli - fever 01/14/2018 without recurrence 2. History of right-sided olecranon MRSA bursitis Plan/recommendations: Continue intravenous antibiotic therapy 6 weeks. Antibiotic spectrum will be narrowed pending review of blood culture results and infectious disease recommendations. Continue to monitor for signs of recurrent embolic phenomenon. Patient may be transferred off telemetry to general medical floor at this time. Laboratory Results Last 24 Hours Test 01/16/18 17:21 01/17/18 06:04 Vancomycin Level Trough 15.2 mcg/ml White Blood Count 8.38 K/uL Red Blood Count 4.72 M/uL Hemoglobin 14.9 g/dL Hematocrit 42.6 % Mean Corpuscular Volume 90.3 fL Mean Corpuscular Hemoglobin 31.6 pg Mean Corpuscular Hemoglobin Concent 35.0 g/dl Platelet Count 216 K/uL Mean Platelet Volume 9.8 fL Neutrophils (%) (Auto) 61.7 % Lymphocytes (%) (Auto) 20.6 % Monocytes (%) (Auto) 12.1 % Eosinophils (%) (Auto) 2.7 % Basophils (%) (Auto) 0.6 % Neutrophils # (Auto) 5.17 K/uL Lymphocytes # (Auto) 1.73 K/uL Monocytes # (Auto) 1.01 K/uL Eosinophils # (Auto) 0.23 K/uL Basophils # (Auto) 0.05 K/uL RDW Standard Deviation 44.0 fL RDW Coefficient of Variation 13.5 % Immature Granulocyte % (Auto) 2.3 % Immature Granulocyte # (Auto) 0.19 K/uL Sodium Level 139 mmol/L Potassium Level 4.1 mmol/L Chloride Level 106 mmol/L Carbon Dioxide Level 28 mmol/L Anion Gap 5.0 mmol/L Blood Urea Nitrogen 11 mg/dl Creatinine 0.88 mg/dl Est Creatinine Clear Calc Drug Dose 80.7 ml/min Estimated GFR () 100.9 Estimated GFR (Non- 87.0 BUN/Creatinine Ratio 12.9 Random Glucose 86 mg/dl Calcium Level 8.4 mg/dl
--- NOTE | 2018-01-17 11:17 | Progress Note ---
Subjective Date of Service: Jan 17, 2018. Subjective Pt evaluation today including: conversation w/ patient, physical exam, chart review, lab review pt seen in followup, initial blood cultures with campylobacter 3/4 sets. repeat pending. Initially had diarrhea, fever and rash, all now resolved. no abd pain, denies n/v/d. no f/c. currently on vanco and ctx. tolerating well. oob to chair. wbc nml. all remaining ros reviewed and are negative. Problem List Medical Problems: (1) Fever Status: Acute (2) Kidney stone Status: Acute (3) Rash Status: Acute (4) Renal colic Status: Acute (5) Right flank pain Status: Acute Objective Vital Signs Date Time Temp Pulse Resp B/P (MAP) Pulse Ox O2 Delivery O2 Flow Rate FiO2 01/17/18 08:23 Room Air 01/17/18 07:35 36.7 69 18 147/97 (114) 94 Room Air 01/17/18 05:28 37.0 64 19 142/93 (109) 96 Room Air 01/16/18 23:46 37.3 77 18 111/72 (85) 97 Room Air 01/16/18 20:00 Room Air 01/16/18 19:12 37.2 77 18 130/88 (102) 94 01/16/18 14:55 36.3 71 20 132/89 (103) 98 Room Air 01/16/18 11:28 36.9 69 20 138/84 (102) 98 Room Air Physical Exam General Appearance: WD/WN, no apparent distress Eyes: normal inspection, EOMI Neck: supple Respiratory/Chest: lungs clear, normal breath sounds, no respiratory distress Cardiovascular: regular rate, rhythm, no edema Abdomen: non tender, soft Extremities: non-tender, normal inspection, no pedal edema Neurologic/Psychiatric: alert, oriented x 3 Skin: normal color Laboratory Results Item Value Date Time Blood Culture - Preliminary Resulted 01/13/18 1740 Blood Gram Negative Bacilli Blood Culture - Preliminary Resulted 01/13/18 1750 Blood Gram Negative Bacilli Blood Culture - Preliminary Resulted 01/13/18 1800 Blood Campylobacter Jejuni Blood Culture - Preliminary Resulted 01/13/18 1800 Blood Campylobacter Jejuni Blood Culture - Preliminary Resulted 01/13/18 1808 Blood NO GROWTH TO DATE. Last 24 Hours Test 01/16/18 17:21 8/6/18 06:04 Vancomycin Level Trough 15.2 mcg/ml White Blood Count 8.38 K/uL Red Blood Count 4.72 M/uL Hemoglobin 14.9 g/dL Hematocrit 42.6 % Mean Corpuscular Volume 90.3 fL Mean Corpuscular Hemoglobin 31.6 pg Mean Corpuscular Hemoglobin Concent 35.0 g/dl Platelet Count 216 K/uL Mean Platelet Volume 9.8 fL Neutrophils (%) (Auto) 61.7 % Lymphocytes (%) (Auto) 20.6 % Monocytes (%) (Auto) 12.1 % Eosinophils (%) (Auto) 2.7 % Basophils (%) (Auto) 0.6 % Neutrophils # (Auto) 5.17 K/uL Lymphocytes # (Auto) 1.73 K/uL Monocytes # (Auto) 1.01 K/uL Eosinophils # (Auto) 0.23 K/uL Basophils # (Auto) 0.05 K/uL RDW Standard Deviation 44.0 fL RDW Coefficient of Variation 13.5 % Immature Granulocyte % (Auto) 2.3 % Immature Granulocyte # (Auto) 0.19 K/uL Sodium Level 139 mmol/L Potassium Level 4.1 mmol/L Chloride Level 106 mmol/L Carbon Dioxide Level 28 mmol/L Anion Gap 5.0 mmol/L Blood Urea Nitrogen 11 mg/dl Creatinine 0.88 mg/dl Est Creatinine Clear Calc Drug Dose 80.7 ml/min Estimated GFR () 100.9 Estimated GFR (Non- 87.0 BUN/Creatinine Ratio 12.9 Random Glucose 86 mg/dl Calcium Level 8.4 mg/dl Assessment and Plan (1) Sepsis Assessment & Plan: will change to imipenem. 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 Also found no literature with regards to IE from c. jejuni. spoke with pt at length, agreeable to tid imipenem, will place on 1g every 8 hours x 14 days. stop vanco and ctx. ok for d/c when arrangements made for outpt abx. time spent 60 minutes (2) Bacteremia due to Campylobacter
[2018-01-17] MEDS: IMIPENEM/CILASTATIN IV 1,000 MG in DEXTROSE 5% 250ML 250 ML IV SCH ×2 (11:57→19:31)
--- NOTE | 2018-01-17 16:03 | Progress Note ---
Medicine Progress Note Date & Time of Visit: Jan 17, 2018 at 15:56. Subjective Pt was seen and examined Lying in bed with no distress Pt said that he feels fine He has not had any fever in the past 48hrs He is hoping that he can be discharged tomorrow Denies any chest pain, palpitation, dizziness and SOB Objective Last 8 Hrs Date Time Temp Pulse Resp B/P (MAP) Pulse Ox O2 Delivery O2 Flow Rate FiO2 01/17/18 15:45 36.6 71 16 132/87 (102) 96 Room Air 01/17/18 15:20 96 Room Air 01/17/18 11:37 36.7 70 18 135/94 (108) 97 Room Air 01/17/18 08:23 Room Air Physical Exam: General- No acute distress Head- atraumatic Eyes- PERRL, EOMI ENT- oropharynx clear Neck- supple, no JVD Lungs- clear to auscultation Heart- regular rhythm; no murmur Abdomen- normal bowel sounds, soft Extremities-no calf tenderness Neuro- alert, oriented x 3; PERRL, EOMI; no facial palsy Skin- warm & dry Laboratory Results: Last 24 Hours Test 01/16/18 17:21 01/17/18 06:04 Vancomycin Level Trough 15.2 mcg/ml White Blood Count 8.38 K/uL Red Blood Count 4.72 M/uL Hemoglobin 14.9 g/dL Hematocrit 42.6 % Mean Corpuscular Volume 90.3 fL Mean Corpuscular Hemoglobin 31.6 pg Mean Corpuscular Hemoglobin Concent 35.0 g/dl Platelet Count 216 K/uL Mean Platelet Volume 9.8 fL Neutrophils (%) (Auto) 61.7 % Lymphocytes (%) (Auto) 20.6 % Monocytes (%) (Auto) 12.1 % Eosinophils (%) (Auto) 2.7 % Basophils (%) (Auto) 0.6 % Neutrophils # (Auto) 5.17 K/uL Lymphocytes # (Auto) 1.73 K/uL Monocytes # (Auto) 1.01 K/uL Eosinophils # (Auto) 0.23 K/uL Basophils # (Auto) 0.05 K/uL RDW Standard Deviation 44.0 fL RDW Coefficient of Variation 13.5 % Immature Granulocyte % (Auto) 2.3 % Immature Granulocyte # (Auto) 0.19 K/uL Sodium Level 139 mmol/L Potassium Level 4.1 mmol/L Chloride Level 106 mmol/L Carbon Dioxide Level 28 mmol/L Anion Gap 5.0 mmol/L Blood Urea Nitrogen 11 mg/dl Creatinine 0.88 mg/dl Est Creatinine Clear Calc Drug Dose 80.7 ml/min Estimated GFR () 100.9 Estimated GFR (Non- 87.0 BUN/Creatinine Ratio 12.9 Random Glucose 86 mg/dl Calcium Level 8.4 mg/dl Assessment & Plan ENDOCARDITIS Present with fever/chills and osler's nodes/Janeway lesions on the hand Recently completed treatment for shingles 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 Malhotra showed small mobile echodensity on the mitral valve consistent with small vegetation. and small linear echodensity on the aortic valve. ID on board recommended to continue Vanco and adding IV Rocephin Procalcitonin normal Blood cx no growth Will need a long course IV abx treatment for 6 weeks Will get a PICC line once blood cx showed no growth Will need a repeat WILLEM in 4-6 weeks to ensure stability. 01/17 Blood cx positive for gram negative bacilli 3/4 sets (Campylobacter in 1 of the bottle) Might be related to one of the organism from the [employer]ACEK group Pt said that he had dental work done 5 days before onset symptoms ID D/C Rocephin and Vanco Afebrile for over 48Hrs Starting on Primaxin q8h IV Case management will check with insurance about abx coverage Repeat blood cx pending Will need a long course IV abx treatment for 6 weeks Will get a PICC line once blood cx showed no growth Will need a repeat WILLEM in 4-6 weeks to ensure stability. HYPOTHYROIDISM On levothyroxine HLD On atorvastatin DVT Prophylaxis On Lovenox sub q Code Status FULL CODE Current Inpatient Medications: Current Inpatient Medications Medications (Trade) Dose Ordered Sig/Yasmine Route Start Time Stop Time Status Last Admin Dose Admin Enoxaparin Sodium (Lovenox Inj) 40 mg Q24H SC 01/13/18 21:00 02/12/18 20:59 01/16/18 22:03 40 MG Acetaminophen (Tylenol Tab) 650 mg Q4H PRN PO 8/2/18 22:15 02/12/18 22:14 01/14/18 16:27 650 MG Nitroglycerin (Nitrostat Tab) 0.4 mg UD PRN SL 01/13/18 22:15 02/12/18 22:14 Aspirin (Ecotrin Tab) 81 mg DAILY PO 01/14/18 09:00 02/13/18 08:59 01/17/18 07:57 81 MG Atorvastatin Calcium (Lipitor Tab) 10 mg QAM PO 01/14/18 09:00 02/13/18 08:59 01/17/18 07:57 10 MG Levothyroxine Sodium (Synthroid Tab) 125 mcg DAILYBB PO 01/14/18 06:00 02/13/18 06:59 01/17/18 06:29 125 MCG Multivitamins/ Minerals (Multivitamin W/ Minerals Tab) 1 tab QAM PO 01/14/18 09:00 02/13/18 08:59 01/17/18 07:57 1 TAB Tramadol HCl (Ultram Tab) 25 mg Q6H PRN PO 01/13/18 22:15 02/12/18 22:14 01/14/18 20:27 25 MG Prochlorperazine Edisylate 5 mg/ Syringe 5 ml @ 5 mls/min Q6H PRN IV 01/13/18 22:15 02/12/18 22:14 Lorazepam (Ativan Inj) 0.5 mg Q4H PRN IV 01/13/18 22:15 02/12/18 22:14 01/16/18 22:02 0.5 MG Morphine Sulfate (MoRPHine SULFATE INJ) 4 mg Q3H PRN IV 01/13/18 22:15 01/27/18 22:14 Loperamide HCl (Imodium Cap) 2 mg UD PRN PO 01/14/18 21:30 02/13/18 21:29 01/15/18 06:51 2 MG Imipenem/ Cilastatin Sodium 1000 mg/Dextrose 270 ml @ 270 mls/hr Q8H IV 01/17/18 12:00 01/31/18 11:59 01/17/18 11:57 270 MLS/HR
[2018-01-17] MEDS ORDERED: IMIP1INJ5 IV (16:06)
[2018-01-17] MEDS: ENOXAPARIN 40 MG/0.4 ML SYR SC SCH (20:30)
[2018-01-17] MEDS: LORAZEPAM 2 MG/ML 1 ML VIAL IV PRN (22:30)
[2018-01-18] VITALS (7 sets, daily range): BP systolic 124–143; BP diastolic 82–92; PULSE 64–81; TEMP 36.4–37.2; O2SAT 96–97
[2018-01-18] MEDS: IMIPENEM/CILASTATIN IV 1,000 MG in DEXTROSE 5% 250ML 250 ML IV SCH ×3 (04:16→21:48)
[2018-01-18] MEDS: LEVOTHYROXINE 125 MCG TAB PO SCH (05:28)
[2018-01-18] MEDS: CEROVITE ADV FORMULA TAB PO SCH (08:18)
[2018-01-18] MEDS: ASPIRIN 81 MG ECTAB PO SCH (08:19)
[2018-01-18] MEDS: ATORVASTATIN 10 MG TAB PO SCH (08:19)
--- NOTE | 2018-01-18 13:20 | Progress Note ---
Subjective Date of Service: Jan 18, 2018. Subjective pt repeat blood cultures negative. tolerating imipenem, agreeable to home abx. afebrile. wbc nml. spoke to primary, for picc line today. Problem List Medical Problems: (1) Fever Status: Acute (2) Kidney stone Status: Acute (3) Rash Status: Acute (4) Renal colic Status: Acute (5) Right flank pain Status: Acute Objective Vital Signs Date Time Temp Pulse Resp B/P (MAP) Pulse Ox O2 Delivery O2 Flow Rate FiO2 01/18/18 11:36 36.4 75 18 143/92 (109) 97 Room Air 01/18/18 08:00 Room Air 01/18/18 07:07 36.6 74 20 125/85 (98) 97 Room Air 01/18/18 03:44 37.2 64 18 125/84 (98) 96 Room Air 01/17/18 23:38 36.5 65 18 143/90 (107) 98 Room Air 01/17/18 23:30 Room Air 01/17/18 19:44 36.3 78 18 136/92 (107) 98 Room Air 01/17/18 15:45 36.6 71 16 132/87 (102) 96 Room Air 01/17/18 15:20 96 Room Air Laboratory Results Item Value Date Time Blood Culture - Preliminary Resulted 01/13/18 1740 Blood Gram Negative Bacilli Blood Culture - Preliminary Resulted 01/13/18 1750 Blood Gram Negative Bacilli Blood Culture - Preliminary Resulted 01/13/18 1800 Blood Campylobacter Jejuni Blood Culture - Preliminary Resulted 01/16/18 1338 Blood NO GROWTH TO DATE. Blood Culture - Preliminary Resulted 01/16/18 1312 Blood NO GROWTH TO DATE. Blood Culture - Preliminary Resulted 01/13/18 1800 Blood Campylobacter Jejuni Blood Culture - Preliminary Resulted 01/13/18 1750 Blood Campylobacter Jejuni Blood Culture - Preliminary Resulted 01/13/18 1740 Blood Campylobacter Jejuni Assessment and Plan (1) Sepsis Assessment & Plan: will change to imipenem. 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 Also found no literature with regards to IE from c. jejuni. spoke with pt at length, agreeable to tid imipenem, will place on 1g every 8 hours x 21 days. for picc today. ok for d/c when arrangements made for outpt abx. (2) Bacteremia due to Campylobacter
--- NOTE | 2018-01-18 19:45 | Progress Note ---
Medicine Progress Note Date & Time of Visit: Jan 18, 2018 at 19:39. Subjective Pt was seen and examined Lying in bed with no distress Pt said that he feels fine Very anxious to go home today Had Picc line placed today Denies any chest pain, palpitation, dizziness and fever Objective Last 8 Hrs Date Time Temp Pulse Resp B/P (MAP) Pulse Ox O2 Delivery O2 Flow Rate FiO2 01/18/18 16:08 36.6 66 18 96 Room Air 01/18/18 15:57 36.6 66 18 126/84 (98) 96 Room Air Physical Exam: General- No acute distress Head- atraumatic Eyes- PERRL, EOMI ENT- oropharynx clear Neck- supple, no JVD Lungs- clear to auscultation Heart- regular rhythm; no murmur Abdomen- normal bowel sounds, soft Extremities-no calf tenderness Neuro- alert, oriented x 3; PERRL, EOMI; no facial palsy Skin- warm & dry Assessment & Plan ENDOCARDITIS Present with fever/chills and osler's nodes/[place]ay lesions on the hand Recently completed treatment for shingles 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 Malhotra showed small mobile echodensity on the mitral valve consistent with small vegetation. and small linear echodensity on the aortic valve. ID on board recommended to continue Vanco and adding IV Rocephin Procalcitonin normal Blood cx no growth Will need a long course IV abx treatment for 6 weeks Will get a PICC line once blood cx showed no growth Will need a repeat WILLEM in 4-6 weeks to ensure stability. 01/18 Blood cx positive for gram negative bacilli 3/4 sets (Campylobacter in 1 of the bottle) Might be related to one of the organism from the [facility]ACEK group Pt said that he had dental work done 5 days before onset symptoms ID D/C Rocephin and Vanco Afebrile for over 72 Hrs Continue Primaxin q8h IV for 21 days as per ID Case management will arrange for abx infusion Repeat blood cx no growth so far Consent obtained and signed from pt Picc line placed today Will need a repeat WILLEM in 4-6 weeks to ensure stability. Will give next dose of abx late night, since pt wants to go home Follow up with ID HYPOTHYROIDISM On levothyroxine HLD On atorvastatin DVT Prophylaxis On Lovenox sub q Code Status FULL CODE Disposition Discharge home today Current Inpatient Medications: Current Inpatient Medications Medications (Trade) Dose Ordered Sig/Yasmine Route Start Time Stop Time Status Last Admin Dose Admin Enoxaparin Sodium (Lovenox Inj) 40 mg Q24H SC 01/13/18 21:00 02/12/18 20:59 01/17/18 20:30 40 MG Acetaminophen (Tylenol Tab) 650 mg Q4H PRN PO 01/13/18 22:15 02/12/18 22:14 01/14/18 16:27 650 MG Nitroglycerin (Nitrostat Tab) 0.4 mg UD PRN SL 01/13/18 22:15 02/12/18 22:14 Aspirin (Ecotrin Tab) 81 mg DAILY PO 01/14/18 09:00 02/13/18 08:59 01/18/18 08:19 81 MG Atorvastatin Calcium (Lipitor Tab) 10 mg QAM PO 01/14/18 09:00 02/13/18 08:59 01/18/18 08:19 10 MG Levothyroxine Sodium (Synthroid Tab) 125 mcg DAILYBB PO 01/14/18 06:00 02/13/18 06:59 01/18/18 05:28 125 MCG Multivitamins/ Minerals (Multivitamin W/ Minerals Tab) 1 tab QAM PO 01/14/18 09:00 02/13/18 08:59 01/18/18 08:18 1 TAB Tramadol HCl (Ultram Tab) 25 mg Q6H PRN PO 01/13/18 22:15 02/12/18 22:14 01/14/18 20:27 25 MG Prochlorperazine Edisylate 5 mg/ Syringe 5 ml @ 5 mls/min Q6H PRN IV 01/13/18 22:15 02/12/18 22:14 Lorazepam (Ativan Inj) 0.5 mg Q4H PRN IV 01/13/18 22:15 02/12/18 22:14 01/17/18 22:30 0.5 MG Morphine Sulfate (MoRPHine SULFATE INJ) 4 mg Q3H PRN IV 01/13/18 22:15 01/27/18 22:14 Loperamide HCl (Imodium Cap) 2 mg UD PRN PO 01/14/18 21:30 02/13/18 21:29 01/15/18 06:51 2 MG Imipenem/ Cilastatin Sodium 1000 mg/Dextrose 270 ml @ 270 mls/hr Q8H IV 01/17/18 12:00 01/31/18 11:59 01/18/18 11:50 270 MLS/HR
[2018-01-18] MEDS ORDERED: IMIP1INJ5 IV (19:47)
--- NOTE | 2018-01-18 19:54 | Discharge Instructions ---
Discharge Instructions Date of Service Jan 18, 2018. Admission Reason for Admission: Sepsis Discharge Discharge Diagnosis / Problem: Endocarditis, Sepsis Discharge Goals Goal(s): Decrease discomfort, Improve function, Improve disease control Activity Recommendations Activity Limitations: resume your previous activity (as tolerated) . Instructions / Follow-Up Instructions / Follow-Up Follow up with your primary care provider Dr. Valdez on 01/24 @ 9:45 AM Follow up with Infectious disease Dr. Jordan or Dr. Dave (Please call for the appointment) You will need a repeat WILLEM between 4 to 6 weeks (Your primary care physician will arrange for the referral) Complete the course for the IV antibiotic infusion (case management already arranged for the antibiotic) Seek medical attention if you develop any fever Current Hospital Diet Patient's current hospital diet: AHA Diet (Heart Healthy), Low Lactose Diet Discharge Diet Recommended Diet: AHA Diet (Heart Healthy) Procedures Procedures Performed: WILLEM Pending Studies Studies pending at discharge: yes List of pending studies: Final repeat blood cx Laboratory Results Hemoglobin A1c Test 01/13/18 18:00 Range/Units Estimated Average Glucose 108 mg/dl Hemoglobin A1c 5.4 4.5-5.6 % Medical Emergencies . Who to Call and When: Medical Emergencies: If at any time you feel your situation is an emergency, please call 911 immediately. . Non-Emergent Contact Non-Emergency issues call your: Primary Care Provider Call Non-Emergent contact if: temperature is above 101, you have any medication questions . . "Provider Documentation" section prepared by Bren Puentes. .
[2018-01-18] MEDS: ENOXAPARIN 40 MG/0.4 ML SYR SC SCH (20:26)
--- NOTE | 2018-01-20 00:52 | Discharge Summary ---
Discharge Summary Date of Service Jan 20, 2018. Discharge Summary Admission Date: Jan 13, 2018 at 21:24 Discharge Date: Jan 18, 2018 Discharge Disposition: Home with services Principal Diagnosis: Endocarditis Secondary Diagnoses/Problems: Dyslipidemia HYPOTHYROIDISM Procedures: WILLEM SINGLE VIEW CHEST CLINICAL HISTORY: Sepsis. FINDINGS: An AP, portable, upright chest radiograph is compared to study dated 09/07/2017. The examination is mildly degraded by portable technique and patient rotation. The heart is top normal for projection and there is mild atherosclerotic calcification of the thoracic aorta. The pulmonary vasculature is noncongested. There is mild bibasilar atelectasis. The lungs and pleural spaces are otherwise clear. No pneumothorax is seen. The skeletal structures are osteopenic. The bony thorax is grossly intact. IMPRESSION: No acute cardiopulmonary abnormality. Electronically signed by: Jeison Henry M.D. 01/13/2018 5:45 PM Dictated Date/Time: 01/13/2018 5:45 PM ECHO Interpretation Summary * Name: EZEKIEL OTERO Study Date: 01/14/2018 06:56 AM BP: 123/73 mmHg * Patient Location: [facility]\\S\\1 HR: 82 * : 1945 (M/d/yyyy) Gender: Male Height: 70 in * Age: 72 yrs Ethnicity: CA Weight: 189 lb * Ordering Physician: Tu Malhotra * Referring Physician: Self, Referred * Performed By: Osvaldo Cuellar RCS * * Reason For Study: Endocarditis * BSA: 2.0 m2 * -- Conclusions -- * There is normal left ventricular wall thickness. * The left ventricular wall motion is normal. * The LV ejection Fraction = 60-65%. * Mild aortic regurgitation. * There is a small linear mobile echodensity, anterior to the anterior portion of the mitral valve annulus measuring 0.8 cm x 0.2 cm (image 98). This could be artifactual, however given clinical history, agitation must be considered, and the transesophageal echocardiogram is recommended for further assessment. Procedure Details * A complete two-dimensional transthoracic echocardiogram was performed (2D, M- mode, Doppler and color flow Doppler). Left Ventricle * The left ventricle is normal in size. * There is normal left ventricular wall thickness. * Left ventricular systolic function is normal. * Ejection Fraction = 60-65%. * The left ventricular wall motion is normal. Right Ventricle * The right ventricle is normal in size and function. Atria * The left atrial size is normal. * Right atrial size is normal. * There is no evidence of atrial septal defect, but resolution does not allow assessment for a patent foramen ovale. Mitral Valve * There is a small linear mobile echodensity, anterior to the anterior portion of the mitral valve annulus measuring 0.8 cm x 0.2 cm (image 98). This could be artifactual, however given clinical history, agitation must be considered, and the transesophageal echocardiogram is recommended for further assessment. * There is no mitral valve stenosis. * Significant mitral regurgitation is absent. Tricuspid Valve * The tricuspid valve is normal. * There is no tricuspid stenosis. * Significant tricuspid regurgitation is absent. * Doppler findings do not suggest pulmonary hypertension. Aortic Valve * The aortic valve is trileaflet. * Aortic valve sclerosis mild, without significant aortic valvular stenosis. * Aortic stenosis is absent. * Mild aortic regurgitation. Pulmonic Valve * The pulmonary valve is not well seen, but the Doppler examination is normal without significant regurgitation or stenosis. Great Vessels * The aortic root and proximal ascending aorta are normal sized. Pericardium/Pleural * There is no pericardial effusion. Right Ventricle * A moderator band is seen in the right ventricle (normal anatomical variant). Great Vessels * Normal inferior vena cava diameter and respiratory variation suggests normal central venous pressure. Left Ventricular Diastolic Function * Grade I diastolic dysfunction, (abnormal relaxation pattern). Preliminary Cardiology Note Procedure Date Jan 14, 2018. Pre-Procedure Diagnosis rule out endocartitis Post-Procedure Diagnosis MV vegetation, endocarditis Procedure(s) Performed WILLEM under conscious sedation Budget Examiner Aida Malhotra DO Guide Dog Trainer(s) Carlos Mantilla, DESHAWN Estimated Blood Loss none Preliminary Findings Small mobile echodensity on the mitral valve consistent with small vegetation. Small linear echodensity on the aortic valve. No abscess. Recommendations Recommend antibiotic therapy for endocarditis. Repeat WILLEM in 4-6 weeks to ensure stability. Specimens none Anesthesia Versed 3 mg IV, Fentanly 100 mcg IV Complication(s) None Disposition PCU <Electronically signed by Tu Malhotra D.O.> Signed: 01/14/18 1141 Signed: Medication Reconciliation New Medications: Imipenem-Cilastatin (Primaxin Iv) 1 Inj Inj 1 GM IV Q8H for 21 Days Continued Medications: Aspirin (Aspirin 81) 81 Mg Tab 81 MG PO DAILY Atorvastatin (Lipitor) 10 Mg Tab 10 MG PO QAM Levothyroxine Sodium (Levothyroxine Sodium) 125 Mcg Tab 125 MCG PO QAM Melatonin-Pyridoxine (Melatonin) 1 Tab Tab 200 MCG PO HS PRN for Sleep Multivitamins/Minerals (Mvi With Minerals) Tab 1 TAB PO QAM Admission Information HPI (per Admitting provider): Pt is 72 y/o M with PMH hypothyroidism, hyperlipidemia presented to ER from PCPs office for fever and rash. Patient states yesterday started with fever high of 102.2F and generalized weakness. Taking ibuprofen for fever. Reports 2 episodes of diarrhea today. Approximately 2 weeks ago patient states started with erythematous painful lesion to left wrist which then progressed to left hand and left arm and also with some blisters with associated burning sensation in numbness of his fingertips. Also reports had swelling to left fingers. Was seen by PCP diagnosed with possible shingles and started on Valtrex and Lyrica. Patient states finished Valtrex and stopped using Lyrica yesterday and reports upper arm and forearm with improvement of rash and edema of fingers. Reports continued sensitivity and burning sensation however is less than initial onset. Patient denies other rashes or lesions. Patient with history 2017 of right septic elbow bursitis (MRSA) S/P I&D by Dr. Sharma and also followed by ID - Dr Jordan. She was initially treated with vancomycin and Zosyn and transition to daptomycin and oral Bactrim. Patient had PICC line at that time. Patient states right elbow has been nontender, no recurrent erythema/ edema/discharge. Denies diaphoresis, N/V, melena, hematochezia, SMITH, dizziness, syncope, vision changes, neck pain, CP, SOB, orthopnea, palpitations, cough, sore throat, choking, otalgia, rhinorrhea, abdominal pain, urinary symptoms, weight changes. Denies cardiac history or history of valve replacement History stress echo 10/2016: No ischemia, EF: 60%. Physical Exam (per Admitting): General Appearance: WD/WN, no apparent distress Head: normocephalic, atraumatic Eyes: normal inspection, PERRL, sclerae normal ENT: hearing grossly normal, pharynx normal, + pertinent finding (Mucous membranes moist) Neck: supple, trachea midline Respiratory/Chest: lungs clear, normal breath sounds, no respiratory distress Cardiovascular: regular rate, rhythm, no murmur, normal peripheral pulses Abdomen/GI: normal bowel sounds, non tender, soft Back: no CVA tenderness Extremities/Musculoskelatal: no calf tenderness, normal capillary refill, no pedal edema, normal range of motion Neurologic/Psych: alert, normal mood/affect, oriented x 3 Skin: warm/dry, + pertinent finding (LUE: Splinter hemorrhages noted middle , index finger. Scabs noted to left forearm, erythematous/purple nodules palmar aspect left hand. +petechiae fingers.) Hospital Course ENDOCARDITIS Present with fever/chills and osler's nodes/Janeway lesions on the hand Recently completed treatment for shingles 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 Malhotra showed small mobile echodensity on the mitral valve consistent with small vegetation. and small linear echodensity on the aortic valve. ID on board recommended to continue Vanco and adding IV Rocephin Procalcitonin normal Blood cx no growth Will need a long course IV abx treatment for 6 weeks Will get a PICC line once blood cx showed no growth Will need a repeat WILLEM in 4-6 weeks to ensure stability. 8/7 Blood cx positive for gram negative bacilli 3/4 sets (Campylobacter in 1 of the bottle) Might be related to one of the organism from the HACEK group Pt said that he had dental work done 5 days before onset symptoms ID D/C Rocephin and Vanco Afebrile for over 72 Hrs Continue Primaxin q8h IV for 21 days as per ID Case management will arrange for abx infusion Repeat blood cx no growth so far Consent obtained and signed from pt Picc line placed today Will need a repeat WILLEM in 4-6 weeks to ensure stability. Will give next dose of abx late night, since pt wants to go home Follow up with ID HYPOTHYROIDISM On levothyroxine HLD On atorvastatin DVT Prophylaxis On Lovenox sub q Code Status FULL CODE Disposition Discharge home today Total time spent on discharge = 35 minutes This includes examination of the patient, discharge planning, medication reconciliation, and communication with other providers. Discharge Instructions Discharge Instructions Date of Service Jan 18, 2018. Admission Reason for Admission: Sepsis Discharge Discharge Diagnosis / Problem: Endocarditis, Sepsis Discharge Goals Goal(s): Decrease discomfort, Improve function, Improve disease control Activity Recommendations Activity Limitations: resume your previous activity (as tolerated) . Instructions / Follow-Up Instructions / Follow-Up Follow up with your primary care provider Dr. Valdez on 01/24 @ 9:45 AM Follow up with Infectious disease Dr. Jordan or Dr. Dave (Please call for the appointment) You will need a repeat WILLEM between 4 to 6 weeks (Your primary care physician will arrange for the referral) Complete the course for the IV antibiotic infusion (case management already arranged for the antibiotic) Seek medical attention if you develop any fever Current Hospital Diet Patient's current hospital diet: AHA Diet (Heart Healthy), Low Lactose Diet Discharge Diet Recommended Diet: AHA Diet (Heart Healthy) Procedures Procedures Performed: WILLEM Pending Studies Studies pending at discharge: yes List of pending studies: Final repeat blood cx Laboratory Results Hemoglobin A1c Test 01/13/18 18:00 Range/Units Estimated Average Glucose 108 mg/dl Hemoglobin A1c 5.4 4.5-5.6 % Medical Emergencies . Who to Call and When: Medical Emergencies: If at any time you feel your situation is an emergency, please call 911 immediately. . Non-Emergent Contact Non-Emergency issues call your: Primary Care Provider Call Non-Emergent contact if: temperature is above 101, you have any medication questions . . "Provider Documentation" section prepared by Bren Puentes. . Signed: Signed: The status of this report is Draft * If report status is Draft, the document has not been finalized by the responsible provider. Additional Copies To Arnulfo Valdez M.D.
== END 2018-01-18 23:05 | disposition home health service (06) | DRG 871 ==
LOC: C.EDB 16:58 → C.2T 21:24 → UNDOADMIN 21:24 → ENRESERV 21:42 → EDBEDREQ 21:58
PROVIDERS: ADMIT Internal Medicine; ATTEND Internal Medicine
PROC: 02HV33Z Insertion of Infusion Device into Superior Vena Cava, Percutaneous Approach (ICD-10-PCS; principal; 2018-01-18)
DX: A41.59 Other Gram-negative sepsis (principal); I33.0 Acute and subacute infective endocarditis; B96.89 Other specified bacterial agents as the cause of diseases classified elsewhere; I10 Essential (primary) hypertension; E03.9 Hypothyroidism, unspecified; E78.5 Hyperlipidemia, unspecified; Z51.81 Encounter for therapeutic drug level monitoring; Z79.899 Other long term (current) drug therapy; Z79.82 Long term (current) use of aspirin; Z86.14 Personal history of Methicillin resistant Staphylococcus aureus infection; Z82.49 Family history of ischemic heart disease and other diseases of the circulatory system